=== PATIENT | female | born 1965 | race Caucasian/White ===

== ENCOUNTER 2017-09-21 06:50 | Day surgery (SDC) | payer MEDICAID ==
[2017-09-21] MEDS ORDERED: Propofol 200 MG/20 ML SDV ONE (07:25)
[2017-09-21] MEDS ORDERED: Midazolam 1 MG/ML 2 ML SDV ONE (07:25)
[2017-09-21] MEDS ORDERED: fentaNYL 100 MCG/2 ML SDV ONE (07:25)
[2017-09-21] MEDS ORDERED: Albuterol/Ipratropium 3.0-0.5 MG/3 ML Neb Soln NEB ONE (08:15)
[2017-09-21] MEDS ORDERED: Lactated Ringers 1,000 ML IV SCH (08:15)
[2017-09-21] MEDS ORDERED: Dextrose 5%-Lactated Ringers 1,000 ML IV SCH (08:45)
[2017-09-21 10:06] VITALS: BP 121/83
--- NOTE | 2017-09-21 15:36 | OR ---
DATE OF PROCEDURE: 09/21/2017 PREOPERATIVE DIAGNOSES: Upper abdominal discomfort manifested by nausea and fullness. POSTOPERATIVE DIAGNOSES: Upper abdominal discomfort manifested by nausea and fullness, a 3 cm hiatal hernia, gastritis, duodenitis, irregular duodenal mucosa. PROCEDURE: Esophagogastroduodenoscopy with antral and duodenal biopsies for CLOtest and for pathology to look for Helicobacter pylori, biopsy of irregular duodenal mucosa. SURGEON: Josiah Kwok MD. ANESTHESIA: IV anesthesia with monitored anesthesia care. INDICATION: This 52-year-old white female is referred for upper endoscopy. She complains of on and off nausea and upper abdominal fullness. She is just uncomfortable in her epigastrium. She has had a cholecystectomy in the past. I counseled her for upper endoscopy with possible biopsy including risks and alternatives, and she gave her informed consent to proceed. DESCRIPTION OF PROCEDURE: The patient was placed in the left lateral decubitus position. IV anesthesia was administered by the Anesthesia Service. Time-out was held. The flexible video Olympus upper endoscope was passed through her mouth down her esophagus, and into her stomach. The scope was easily passed through the pylorus, into the duodenum reaching its third portion. The scope was slowly withdrawn examining the mucosa throughout. There was some area of irregularity, that was smooth, but bulging a little. We did biopsy this area in the duodenum. Also, there was evidence of inflammation in the duodenal bulb. The scope was brought back through the pylorus into the antrum. There was also evidence of gastritis with erythematous streaking emanating from the pylorus. We obtained biopsies for CLOtest, and for pathology to look for Helicobacter pylori of both the antrum and duodenum. The scope was retroflexed. The proximal stomach was unremarkable except for a visualized hiatal hernia. The scope was straightened and brought up through about a 3 cm in length hiatal hernia. The GE junction appeared unremarkable. The scope was then brought up through the unremarkable appearing esophagus and was removed. She tolerated the procedure well. Josiah Kwok MD /[id number]
== END 2017-09-21 10:12 | disposition home or self-care (01) ==
LOC: JP.SDS 06:50
PROVIDERS: ATTEND Surgery
DX: K29.70 Gastritis, unspecified, without bleeding (principal); K29.80 Duodenitis without bleeding; K44.9 Diaphragmatic hernia without obstruction or gangrene; J45.909 Unspecified asthma, uncomplicated; K21.9 Gastro-esophageal reflux disease without esophagitis; Z88.6 Allergy status to analgesic agent; Z88.2 Allergy status to sulfonamides
CPT/HCPCS: 43239; 87081; J2250; J2704; J3010; J7120; J7620

== ENCOUNTER 2017-11-26 06:53 | Emergency (ER) | payer MEDICAID ==
[2017-11-26 07:06] VITALS: BP 145/86
[2017-11-26] MEDS ORDERED: Ondansetron 4 MG/2 ML SDV IVPUSH ONE (07:39)
[2017-11-26] MEDS ORDERED: Metoclopramide 10 MG/2 ML SDV IVPUSH ONE (07:40)
[2017-11-26] MEDS ORDERED: Sodium Chloride 0.9% 1,000 ML IV SCH ×2 (07:45→08:45)
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
[2017-11-26] MEDS ORDERED: Pantoprazole 40 MG Vial IVPUSH ONE (08:07)
[2017-11-26] MEDS ORDERED: Levalbuterol HCl 1.25 MG/3 ML Neb NEB ONE (09:59)
[2017-11-28 07:32] LABS: HBSAG SCREEN Negative (Negative); HEP A AB, IGM Negative (Negative); HEP B CORE AB, IGM Negative (Negative); HEP C VIRUS AB <0.1 s/co ratio (0.0-0.9)
== END 2017-11-26 10:31 | disposition home or self-care (01) ==
LOC: JP.ED 06:53
DX: K46.9 Unspecified abdominal hernia without obstruction or gangrene (principal); K21.0 Gastro-esophageal reflux disease with esophagitis; E86.0 Dehydration; R74.8 Abnormal levels of other serum enzymes; Z88.8 Allergy status to other drugs, medicaments and biological substances
CPT/HCPCS: 36415; 80053; 80074; 83690; 85025; 86140; 94640; 96361; 96374; 96375; 99284; C9113; J2405; J2765; J7030; J7612

== ENCOUNTER 2019-08-24 16:28 | Emergency (ER) | payer MEDICAID ==
[2019-08-24] MEDS ORDERED: Sodium Chloride 0.9% 10 ML Syringe FLUSH PRN (17:07)
[2019-08-24] MEDS ORDERED: Promethazine 25 MG Supp RECTAL PRN ×2 (17:08→22:03)
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
[2019-08-24] MEDS ORDERED: Sodium Chloride 0.9% 1,000 ML IV SCH (17:15)
[2019-08-24] MEDS ORDERED: Magnesium Oxide 400 MG Tab PO ONE (18:16)
[2019-08-24] MEDS ORDERED: Magnesium Sulfate/Water 2 GM in Premix Bag 1 BAG IV ONE (18:34)
[2019-08-24] MEDS ORDERED: Promethazine 12.5 MG in Sodium Chloride 0.9% 50 ML IV PRN (18:35)
[2019-08-24] MEDS ORDERED: fentaNYL 100 MCG/2 ML SDV IVPUSH ONE (20:03)
[2019-08-24] MEDS ORDERED: LORazepam 2 MG/ML SDV IVPUSH ONE (20:03)
[2019-08-24 20:05] VITALS: BP 146/81; PULSE 57
[2019-08-24] MEDS ORDERED: Sodium Chloride 0.9% 10 ML Syringe FLUSH ONE (20:21)
[2019-08-24] MEDS ORDERED: Iopamidol 612 MG/ML 100 ML Bottle IV SCH (20:30)
[2019-08-24] MEDS ORDERED: Sodium Chloride 0.9% 100 ML IV SCH (20:30)
--- NOTE | 2019-08-24 22:08 | CRLCT ---
INDICATION: Abdominal pain. Vomiting TECHNIQUE: CT abdomen and pelvis acquired with IV contrast. 100 mL of Isovue-300 administered. COMPARISON: None available FINDINGS: Lower chest: Minor right lower lobe subsegmental atelectasis. A small hiatal hernia. Liver: Mild intrahepatic periportal edema, nonspecific. Spleen: Unremarkable. Pancreas: Unremarkable. Pancreatic divisum is not excluded. Gallbladder and bile ducts: Cholecystectomy. Adrenal glands: Unremarkable. Kidneys: A mildly abnormal right renal axis. No hydronephrosis. GI tract: No mechanical bowel obstruction. Few nondilated fluid-filled pelvic small bowel segments are nonspecific. A normal appendix. Slight colonic wall prominence is likely related to underdistention. No significant pericolonic changes. At least 1 small distal descending colon diverticulum seen. Vascular structures: Normal aortic caliber. Minor early atherosclerotic changes. Asymmetrical prominence and opacification of the left parametrial and gonadal veins. Lymph nodes: Unremarkable. Miscellaneous: No significant free fluid or free air. Pelvic Organs: The uterine endometrium measures 7 mm. Small fluid in the vaginal fornix. A 1.2 cm left adnexal low-density structure. No discrete bladder abnormality seen. Bones: Unremarkable for age. IMPRESSION: No evidence of appendicitis, diverticulitis or mechanical bowel obstruction. Few nonspecific pelvic fluid filled small bowel segments. Slight colonic wall prominence is likely related to under distention. Correlate clinically to exclude mild enterocolitis. Mild intrahepatic periportal edema, nonspecific, and can be seen with fluid resuscitation. Correlate with hepatic enzymes. Asymmetrical prominence and opacification of the left parametrial and gonadal veins. Correlate for unilateral pelvic congestion syndrome. Mild prominence of the uterine endometrium for the patient`s age, and a 1.2 cm left adnexal low-density structure, which could be physiologic, if the patient is not postmenopausal. If the patient is postmenopausal, correlate with pelvic ultrasound. Dictated by Anthony Velez MD @ 08/24/2019 10:02:01 PM Please note that all CT scans at this facility use dose modulation, iterative reconstruction, and/or weight-based dosing when appropriate to reduce radiation dose to as low as reasonably achievable. Dictated by: Anthony Velez MD @ 08/24/2019 22:07:54 (Electronically Signed)
== END 2019-08-24 22:54 | disposition home or self-care (01) ==
LOC: JP.ED 16:28
DX: E86.0 Dehydration (principal); E83.42 Hypomagnesemia; E87.6 Hypokalemia; N28.9 Disorder of kidney and ureter, unspecified; K21.9 Gastro-esophageal reflux disease without esophagitis; J45.909 Unspecified asthma, uncomplicated; F32.9 Major depressive disorder, single episode, unspecified; F41.0 Panic disorder [episodic paroxysmal anxiety]; Z79.899 Other long term (current) drug therapy; Z88.2 Allergy status to sulfonamides; Z88.6 Allergy status to analgesic agent; Z91.09 Other allergy status, other than to drugs and biological substances; Z91.048 Other nonmedicinal substance allergy status
CPT/HCPCS: 36415; 74177; 80048; 80076; 80307; 81001; 83690; 83735; 84484; 93005; 96361; 96365; 96366; 96375; 99284; A9270; J2060; J2550; J3010; J3475; J7030; J7050; Q9967

== ENCOUNTER 2019-11-21 07:14 | Day surgery (SDC) | payer MEDICAID ==
[2019-11-21] MEDS ORDERED: Midazolam 1 MG/ML 2 ML SDV ONE (07:45)
[2019-11-21] MEDS ORDERED: Propofol 200 MG/20 ML SDV ONE (07:45)
[2019-11-21] MEDS ORDERED: fentaNYL 100 MCG/2 ML SDV ONE (07:45)
[2019-11-21] MEDS ORDERED: Sodium Chloride 0.9% 1,000 ML IV SCH (08:00)
[2019-11-21 11:15] VITALS: BP 121/79; PULSE 64
--- NOTE | 2019-11-21 12:10 | OR ---
DATE OF PROCEDURE: 11/21/2019 SURGEON: Baltazar Hagen MD PROCEDURES: 1. Esophagogastroduodenoscopy. 2. Colonoscopy. FINDINGS: 1. Gastric ulcer in antrum, not actively bleeding. 2. Transverse colon polyp, approximately 5 mm, completely removed using cold biopsy forceps. 3. Anal lesion, most likely consistent with thrombosed hemorrhoids. COMPLICATIONS: None. ANIMAL CARE SPECIALIST: None. RISKS: Risks, benefits, alternatives, and limitations including but not limited to infection, bleeding, and perforation were explained to the patient, who wished to proceed. We also discussed general surgical risks. PROCEDURE IN DETAIL: The patient was placed in left lateral decubitus position. EGD scope was introduced and advanced atraumatically to the second part of the duodenum. No evidence of duodenitis or ulceration were noted. The patient did have a gastric ulcer as described above. No evidence of other abnormalities. The patient did have a hiatal hernia, but it was difficult to determine size, approximately 4 to 6 cm. The remainder of the esophagus was normal. Digital rectal exam was performed next. The hemorrhoidal-type lesions were identified. Scope was introduced and advanced atraumatically to the ileocecal valve. A photo was taken of this. Scope was brought back into the transverse colon polyp, approximately 5 mm polyp was identified and completely removed using cold biopsy forceps. No abnormalities on retroflexion, except for prominent hemorrhoidal lesion, which was biopsied due to its concern for possible malignancy. Greater than 8 minutes was used to remove the scope. The patient tolerated the procedure well. Baltazar Hagen MD /[id number]
== END 2019-11-21 11:15 | disposition home or self-care (01) ==
LOC: JP.SDS 07:14
PROVIDERS: ATTEND Surgery
DX: D12.3 Benign neoplasm of transverse colon (principal); K62.89 Other specified diseases of anus and rectum; K25.9 Gastric ulcer, unspecified as acute or chronic, without hemorrhage or perforation; K44.9 Diaphragmatic hernia without obstruction or gangrene; J45.909 Unspecified asthma, uncomplicated; K64.9 Unspecified hemorrhoids; Z88.2 Allergy status to sulfonamides
CPT/HCPCS: 43239; 45380; 88305; J2250; J2704; J3010; J7030

== ENCOUNTER 2020-01-05 08:00 | Day surgery (SDC) | payer MEDICAID ==
[2020-01-05] MEDS ORDERED: fentaNYL 100 MCG/2 ML SDV ONE (09:08)
[2020-01-05] MEDS ORDERED: Midazolam 1 MG/ML 2 ML SDV ONE ×2 (09:08→10:57)
[2020-01-05] MEDS ORDERED: Propofol 200 MG/20 ML SDV ONE ×2 (09:08→11:08)
[2020-01-05] MEDS ORDERED: metroNIDAZOLE/Normal Saline 500 MG in Premix Bag 1 BAG IV ONE (09:30)
[2020-01-05] MEDS ORDERED: Sodium Chloride 0.9% 1,000 ML IV SCH (09:30)
[2020-01-05] MEDS ORDERED: ceFAZolin 2 GM in Premix Bag 1 BAG IV ONE (09:30)
[2020-01-05] MEDS ORDERED: Lidocaine 1% with EPINEPHrine 1:100,000 50 ML MDV ONE (09:35)
[2020-01-05] MEDS ORDERED: Bupivacaine 0.5% 50 ML MDV ONE (09:35)
[2020-01-05] MEDS ORDERED: Lidocaine 2% Jelly 30 ML Tube ONE (09:35)
[2020-01-05] MEDS ORDERED: Ketorolac 60 MG/2 ML SDV ONE (11:17)
[2020-01-05 12:25] VITALS: BP 122/85; PULSE 71
--- NOTE | 2020-01-05 14:30 | OR ---
DATE OF PROCEDURE: 01/05/2020 SURGEON: Baltazar Hagen MD PROCEDURE: Excision of internal and external hemorrhoids. COMPLICATIONS: None. ASSISTANT DESIGNER: None. ANESTHESIA: MAC/local. RISKS: Risks, benefits, alternatives, and limitations including but not limited to infection, bleeding, fistulas, chronic pain, and other risks not listed here were explained to the patient. PROCEDURE IN DETAIL: The patient was placed in a prone position. The internal and external hemorrhoid were evaluated and anesthetized with lidocaine and excised in a simi-type fashion. This was then closed with a running chromic suture. The patient tolerated the procedure well. Baltazar Hagen MD /[id number]
== END 2020-01-05 12:42 | disposition home or self-care (01) ==
LOC: JP.SDS 08:00
PROVIDERS: ATTEND Surgery
DX: K64.8 Other hemorrhoids (principal); K64.4 Residual hemorrhoidal skin tags; J45.40 Moderate persistent asthma, uncomplicated; K21.9 Gastro-esophageal reflux disease without esophagitis; Z98.890 Other specified postprocedural states; Z79.899 Other long term (current) drug therapy; Z88.2 Allergy status to sulfonamides; Z88.8 Allergy status to other drugs, medicaments and biological substances; Z91.018 Allergy to other foods
CPT/HCPCS: 46255; J0690; J1885; J2250; J2704; J3010; J3490; 88304

== ENCOUNTER 2020-04-23 05:50 | Day surgery (SDC) | payer MEDICAID ==
[~2020-04-23 05:50] MED LIST: Ropivacaine 28 ML, dexAMETHasone 8 MG, EPINEPHrine 0.4 MG, Sodium Chloride 0.9% 49.6 ML NERVRT SCH; Sodium Chloride 0.9% 1,000 ML IV SCH; ceFAZolin 2 GM in Premix Bag 1 BAG IV ONE; metroNIDAZOLE/Normal Saline 500 MG in Premix Bag 1 BAG IV ONE
[2020-04-23] MEDS ORDERED: Sodium Chloride 0.9% 1,000 ML IV SCH (06:30)
[2020-04-23] MEDS ORDERED: Bupivacaine 0.5% 50 ML MDV ONE (06:58)
[2020-04-23] MEDS ORDERED: Lidocaine 1% with EPINEPHrine 1:100,000 50 ML MDV ONE (06:58)
[2020-04-23] MEDS ORDERED: Ondansetron 4 MG/2 ML SDV IVPUSH PRN (07:08)
[2020-04-23] MEDS ORDERED: Ketorolac 30 MG/ML SDV IVPUSH PRN (07:08)
[2020-04-23] MEDS ORDERED: diphenhydrAMINE 50 MG/ML SDV IVPUSH PRN (07:08)
[2020-04-23] MEDS ORDERED: hydrOXYzine HCL 100 MG/2 ML SDV IM PRN (07:08)
[2020-04-23] MEDS ORDERED: Benzocaine/Cetylpyridinium/Menthol Lozenge MUCMEM PRN ×2 (07:08)
[2020-04-23] MEDS ORDERED: fentaNYL 100 MCG/2 ML SDV IVPUSH PRN (07:08)
[2020-04-23] MEDS ORDERED: Ondansetron 4 MG Tab.DIS PO PRN (07:08)
[2020-04-23] MEDS ORDERED: Bisacodyl 5 MG Tab PO PRN (07:08)
[2020-04-23] MEDS ORDERED: Midazolam 1 MG/ML 2 ML SDV ONE (07:16)
[2020-04-23] MEDS ORDERED: Neostigmine Methylsulfate 1 MG/ML 5 ML Syringe ONE (07:17)
[2020-04-23] MEDS ORDERED: Propofol 200 MG/20 ML SDV ONE (07:17)
[2020-04-23] MEDS ORDERED: Glycopyrrolate 0.2 MG/ML 5 ML MDV ONE (07:17)
[2020-04-23] MEDS ORDERED: Dexamethasone 4 MG/ML SDV ONE (07:17)
[2020-04-23] MEDS ORDERED: Rocuronium 50 MG/5 ML Vial ONE (07:17)
[2020-04-23] MEDS ORDERED: Succinylcholine 200 MG/10 ML MDV ONE (07:17)
[2020-04-23] MEDS ORDERED: fentaNYL 250 MCG/5 ML SDV ONE (07:17)
[2020-04-23] MEDS ORDERED: ceFAZolin 2 GM in Premix Bag 1 BAG IV ONE (07:30)
[2020-04-23] MEDS ORDERED: metroNIDAZOLE/Normal Saline 500 MG in Premix Bag 1 BAG IV ONE (07:30)
[2020-04-23] MEDS ORDERED: Ropivacaine 28 ML, dexAMETHasone 8 MG, EPINEPHrine 0.4 MG, Sodium Chloride 0.9% 49.6 ML NERVRT SCH ×8 (08:30→10:15)
[2020-04-23] MEDS: Acetaminophen/HYDROcodone 325-10 MG Tab PO PRN ×2 (09:51→14:35)
[2020-04-23 14:30] VITALS: BP 136/93; PULSE 80
[2020-04-23] MEDS ORDERED: LORazepam 1 MG Tab PO PRN (15:36)
[2020-04-23] MEDS ORDERED: Citalopram 20 MG Tab PO SCH (16:00)
[2020-04-23] MEDS ORDERED: ceFAZolin 2 GM in Premix Bag 1 BAG IV SCH (16:00)
--- NOTE | 2020-04-24 09:16 | PN ---
DATE OF SERVICE: 04/23/2020 The patient underwent uneventful laparoscopic Kiki. She was scheduled to be discharged on postop day 0. No specific concerns. Please see discharge summary for further details. Baltazar Hagen MD /[id number]
--- NOTE | 2020-04-26 07:57 | OR ---
DATE OF PROCEDURE: 04/23/2020 SURGEON: Baltazar Hagen MD PROCEDURES: 1. Laparoscopic Kiki fundoplication with hiatal hernia repair and mesh placement (36003). 2. Esophagogastroduodenoscopy. COMPLICATIONS: None. MUSIC INDU[employer]Y INTERNSHIP: None. ANESTHETIC: General. RISKS: Risks, benefits, alternatives, and limitations including, but not limited to infection, bleeding, injury to abdominal structures, leaks, esophageal injury, injury to bowel or bladder, possibility of open surgery, dysphagia, chronic pain, chronic dysphagia, and other risks not listed here were explained to the patient who wished to proceed. PROCEDURE IN DETAIL: The patient was placed in supine position. At 15 cm and 5 cm to the left of the xiphoid process, a transverse incision was made. A Veress needle was used to enter the abdomen without abnormality. A drop test was performed without abnormality. The abdomen was subsequently insufflated. Three additional 5 mm ports were entered under direct visualization. The liver and stomach were readily identified. The patient was noted to have a atof-kr-jbtixmsq-sized hiatal hernia. A liver retractor was then placed. Using the classic technique starting at the right lan, the phrenoesophageal ligament was entered in the avascular plane. This dissection continued posteriorly and to the left lan, all using blunt dissection. Energy sources were not used in any way. The right hepatic artery was noted in anatomical variation location. This would be preserved along with the vagus nerves which would be identified, but not interacted with in any way. Once a blunt dissection was completed, a Naomi drain was used to pass between the stomach/esophagus and was secured. The lesser curvature of the stomach was then addressed next. This was addressed in avascular plane using Harmonic scalpel. This was carried all the way up to the splenoesophageal and splenogastric ligament areas. This also was continued with blunt dissection except for Harmonic scalpel was used to address the splenic short gastrics. The defect created behind the stomach was appropriate. A 60 bougie was placed and a shoeshine maneuver was performed. Prior to this, the hernia would be repaired with 3 interrupted sutures. BIO-A mesh would then also be placed over the suture repair. The target of the suture repair was approximation without strangulation of the esophagus. The esophagus was measured and was noted to be intraabdominal of 5 cm. The wrap was then commenced. The shoeshine maneuver was again repeated. This was then sutured into the esophagus/ stomach in 3 locations. An EGD scope was introduced. No abnormalities noted. The wrap was noted to be intact. No other abnormalities were noted during the EGD. The air was removed. The wounds were closed with 3-0 Vicryl and 4-0 Vicryl in interrupted running fashion. Dermabond was applied. The patient tolerated the procedure well. Baltazar Hagen MD /[id number]
--- NOTE | 2020-04-26 07:57 | OR ---
DATE OF PROCEDURE: 04/23/2020 SURGEON: Baltazar Hagen MD PROCEDURE: 1. Bilateral transversus abdominis plane blocks. 2. Bilateral rectus sheath blocks. COMPLICATION: None. LIFE CARE PLANNER: None. RISKS: Risks, benefits, alternatives, and limitations including, but not limited to infection, bleeding, injury to abdominal structures were explained to the patient who wished to proceed. PROCEDURE IN DETAIL: The patient was placed in the supine position. The left transversus plane was identified first. Essentially, the fluid will be broken up into 4 separate aliquots for a total of 80% of the allotted fluid. Using the 13 megahertz ultrasound probe, it was identified and the solution was injected. This was then repeated for the left and right rectus sheaths and right transversus planes. The patient tolerated the procedure well. Baltazar Hagen MD /[id number]
== END 2020-04-23 17:31 | disposition home or self-care (01) ==
LOC: JP.SDS 05:50 → JP.MS 07:08 → UNDOADMOB 07:08 → JP.MS 07:10 → JP.SDS 17:31 → UNDODISOB 17:31
PROVIDERS: ATTEND Surgery
DX: K44.9 Diaphragmatic hernia without obstruction or gangrene (principal); J45.909 Unspecified asthma, uncomplicated; K21.9 Gastro-esophageal reflux disease without esophagitis; N18.9 Chronic kidney disease, unspecified; Z79.899 Other long term (current) drug therapy; Z88.2 Allergy status to sulfonamides; Z88.8 Allergy status to other drugs, medicaments and biological substances; Z91.02 Food additives allergy status
CPT/HCPCS: 36415; 86850; 86900; 86901; 86920; 86922; A9270-GY; C1713; C1776; J0171; J0330; J0690; J1100; J1200; J1885; J2250; J2405; J2704; J2710; J2795; J3010; J3490; J7030

== ENCOUNTER 2020-04-27 12:16 | Emergency (ER) | payer MEDICAID ==
[2020-04-27 12:38] VITALS: BP 120/88; PULSE 102
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
--- NOTE | 2020-04-27 13:40 | CR ---
CHEST: Portable to 05/15/2020 at 1256 CLINICAL HISTORY:Postop pain COMPARISON:None FINDINGS: Patient has small bibasal pleural effusions left greater than right. There is mild prominence of the interstitial markings. Heart size and pulmonary vascular normal. IMPRESSION: Small bibasal pleural effusions left greater than right Diffuse interstitial prominence may represent some interstitial edema or possibly pneumonitis. Abdomen 1V Upright CLINICAL HISTORY: Postop pain FINDINGS: No free air is identified. There are some surgical clips in the epigastric region. Patient has had previous cholecystectomy also seen on a CT from 2019. No free air is identified. Small chest gas pattern is nonspecific. IMPRESSION: Recent epigastric surgery Nonacute intestinal gas pattern.
== END 2020-04-27 14:30 | disposition home or self-care (01) ==
LOC: JP.ED 12:16
DX: G89.18 Other acute postprocedural pain (principal); R10.9 Unspecified abdominal pain; J45.909 Unspecified asthma, uncomplicated; K21.9 Gastro-esophageal reflux disease without esophagitis; Z79.899 Other long term (current) drug therapy; Z88.2 Allergy status to sulfonamides; Z91.048 Other nonmedicinal substance allergy status; Z88.6 Allergy status to analgesic agent; Z91.018 Allergy to other foods
CPT/HCPCS: 71045; 71045-26; 74018; 74018-26; 99284-25

== ENCOUNTER 2020-05-06 07:49 | Day surgery (SDC) | payer MEDICAID ==
[2020-05-06] MEDS ORDERED: fentaNYL 100 MCG/2 ML SDV ONE (08:05)
[2020-05-06] MEDS ORDERED: Midazolam 1 MG/ML 2 ML SDV ONE (08:05)
[2020-05-06] MEDS ORDERED: Propofol 200 MG/20 ML SDV ONE (08:06)
[2020-05-06] MEDS ORDERED: Sodium Chloride 0.9% 1,000 ML IV SCH (08:30)
--- NOTE | 2020-05-06 10:26 | OR ---
DATE OF PROCEDURE: 05/06/2020 SURGEON: Baltazar Hagen MD PROCEDURE: Esophagogastroduodenoscopy. PREOPERATIVE DIAGNOSIS: Epigastric pain. POSTOPERATIVE DIAGNOSIS: Epigastric pain. FINDINGS: Duodenal ulcer x2, none bleeding. COMPLICATIONS: None. OVEREDGER: None. ANESTHETIC: MAC. RISKS: Risks, benefits, alternatives, and limitations including, but not limited to infection, bleeding, and perforation were explained to the patient who wished to proceed. PROCEDURE IN DETAIL: The patient was placed in left lateral decubitus position. An EGD scope was introduced and advanced atraumatically to the second part of the duodenum. Within the duodenum, approximately 3 cm from the bulb on the curve, the patient had 2 duodenal ulcers, one was approximately 5 mm, one was approximately 1 cm. They were apart also. They were not actively bleeding. Within the stomach itself, there was some gastritis. The wrap itself appeared to be intact. There was no evidence of narrowing or stricturing. The GE junction also appeared normal. The esophagus was normal. The patient tolerated the procedure well. Of note, the patient was started on proton pump inhibitor. Baltazar Hagen MD /[id number]
[2020-05-06 10:34] VITALS: BP 115/74; PULSE 88
== END 2020-05-06 10:57 | disposition home or self-care (01) ==
LOC: JP.SDS 07:49
PROVIDERS: ATTEND Surgery
DX: K26.9 Duodenal ulcer, unspecified as acute or chronic, without hemorrhage or perforation (principal); K29.70 Gastritis, unspecified, without bleeding; K21.9 Gastro-esophageal reflux disease without esophagitis; J45.909 Unspecified asthma, uncomplicated; Z88.2 Allergy status to sulfonamides; Z91.048 Other nonmedicinal substance allergy status; Z88.8 Allergy status to other drugs, medicaments and biological substances; Z91.02 Food additives allergy status
CPT/HCPCS: J2250; J2704; J3010; J7030

== ENCOUNTER 2020-05-22 15:29 | Observation (INO) | payer MEDICAID ==
[2020-05-22] MEDS ORDERED: Sodium Chloride 0.9% 10 ML Syringe FLUSH PRN (16:05)
[2020-05-22] MEDS ORDERED: fentaNYL 100 MCG/2 ML SDV IVPUSH ONE (16:06)
[2020-05-22] MEDS ORDERED: Ondansetron 4 MG/2 ML SDV IVPUSH ONE (16:06)
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
[2020-05-22] MEDS ORDERED: Sodium Chloride 0.9% 10 ML Syringe FLUSH ONE (16:10)
[2020-05-22] MEDS ORDERED: Lactated Ringers 1,000 ML IV SCH (16:15)
[2020-05-22] MEDS ORDERED: Iopamidol 612 MG/ML 100 ML Bottle IV SCH (16:15)
[2020-05-22] MEDS ORDERED: Sodium Chloride 0.9% 100 ML IV SCH (16:15)
[2020-05-22] MEDS ORDERED: LORazepam 2 MG/ML SDV IVPUSH ONE (16:50)
--- NOTE | 2020-05-22 17:29 | CRLCT ---
INDICATION: Epigastric pain. COMPARISON: 08/24/2019. TECHNIQUE: CT of the abdomen pelvis with IV contrast. 100 cc Isovue-300. FINDINGS: Linear bibasilar subsegmental atelectasis. Cholecystectomy. The liver, spleen, pancreas and adrenal glands are unremarkable. No obstructing renal calculus or hydronephrosis. Abdominal aorta is normal in caliber. Uterus is present. Bladder is nondistended. No free fluid or free air. Question of mild colonic wall thickening of the transverse colon versus underdistention. No evidence of bowel obstruction. No enlarged lymph nodes in the abdomen or pelvis. Postsurgical changes at the GE junction, likely hiatal hernia repair. Stomach is distended. Bones are unremarkable for age. IMPRESSION: 1. Possible colonic wall thickening versus underdistention of the transverse colon, consider colitis. 2. Distended stomach of uncertain etiology. Consider gastric outlet obstruction. Please note that all CT scans at this facility use dose modulation, iterative reconstruction, and/or weight-based dosing when appropriate to reduce radiation dose to as low as reasonably achievable. Dictated by Abdullahi Pratt MD @ May 22 2020 5:17PM Signed by Dr. Abdullahi Pratt @ May 22 2020 5:28PM
[2020-05-22] MEDS ORDERED: Pantoprazole 40 MG Vial IVPUSH ONE (17:38)
[2020-05-22] MEDS ORDERED: Prochlorperazine 10 MG/2 ML SDV IVPUSH PRN (17:59)
[2020-05-22] MEDS ORDERED: HYDROmorphone 0.5 MG/0.5 ML Syringe IVPUSH PRN (17:59)
[2020-05-22] MEDS ORDERED: Levalbuterol HCl 1.25 MG/3 ML Neb INH PRN (18:00)
[2020-05-22] MEDS ORDERED: Promethazine 25 MG Supp RECTAL PRN (18:00)
[2020-05-22] MEDS ORDERED: Levalbuterol Tartrate HFA 15 GM Inhaler INH PRN (18:00)
[2020-05-22] MEDS ORDERED: LORazepam 1 MG Tab PO PRN (18:00)
[2020-05-22] MEDS ORDERED: Pantoprazole 40 MG Vial IVPUSH SCH (18:00)
[2020-05-22] MEDS: Lactated Ringers 1,000 ML IV SCH (20:06)
[2020-05-22] MEDS: Montelukast 10 MG Tab PO SCH ×2 (21:09→21:10)
[2020-05-22] MEDS: Sucralfate 1 GM Tab PO SCH ×2 (21:09→21:10)
[2020-05-23] MEDS ORDERED: Acetaminophen 325 MG Tab PO PRN (02:36)
[2020-05-23] MEDS: Sucralfate 1 GM Tab PO SCH ×5 (05:56→20:46)
[2020-05-23] MEDS ORDERED: Levalbuterol HCl 1.25 MG/3 ML Neb INH PRN (07:17)
[2020-05-23] MEDS ORDERED: Midazolam 1 MG/ML 2 ML SDV ONE (08:01)
[2020-05-23] MEDS ORDERED: fentaNYL 100 MCG/2 ML SDV ONE (08:01)
[2020-05-23] MEDS ORDERED: Propofol 200 MG/20 ML SDV ONE (08:01)
[2020-05-23] MEDS ORDERED: Lactated Ringers 1,000 ML ONE (08:13)
[2020-05-23] MEDS ORDERED: Loratadine 10 MG Tab PO SCH (09:00)
[2020-05-23] MEDS: Docusate Sodium 100 MG Cap PO SCH (09:24)
[2020-05-23] MEDS: Cholecalciferol (Vitamin D3) 25 MCG Tab PO SCH (09:24)
[2020-05-23] MEDS: Citalopram 20 MG Tab PO SCH (09:25)
[2020-05-23] MEDS ORDERED: Acetaminophen 160 MG Tab,Disintegrating PO PRN (10:15)
[2020-05-23] MEDS ORDERED: Pantoprazole 40 MG Delayed-Release Granules 1 Packet PO ONE (10:30)
[2020-05-23] MEDS: Lactated Ringers 1,000 ML IV SCH (11:00)
[2020-05-23] MEDS ORDERED: Pantoprazole 40 MG Vial IVPUSH SCH (18:00)
[2020-05-23] MEDS ORDERED: Montelukast 5 MG Tab.Chew PO SCH (21:00)
[2020-05-23] MEDS: Pantoprazole 40 MG Delayed-Release Granules 1 Packet PO SCH (22:34)
[2020-05-24] MEDS: Lactated Ringers 1,000 ML IV SCH (03:11)
[2020-05-24] MEDS: Sucralfate 1 GM Tab PO SCH ×2 (07:40→11:11)
[2020-05-24] MEDS: Pantoprazole 40 MG Delayed-Release Granules 1 Packet PO SCH (07:41)
[2020-05-24] MEDS ORDERED: Loratadine 10 MG Tab.DIS PO SCH (09:00)
[2020-05-24] MEDS ORDERED: ASCORBIC ACID 500 MG PO SCH (09:00)
[2020-05-24] MEDS: Citalopram 20 MG Tab PO SCH (09:41)
[2020-05-24] MEDS: Cholecalciferol (Vitamin D3) 25 MCG Tab PO SCH (09:42)
[2020-05-24] MEDS: Docusate Sodium 100 MG Cap PO SCH (09:48)
--- NOTE | 2020-05-24 10:49 | OR ---
DATE OF PROCEDURE: 05/23/2020 SURGEON: Baltazar Hagen MD PROCEDURE: Esophagogastroduodenoscopy. FINDINGS: 1. Significant improvement in duodenal ulcers (no physical ulcer remaining). 2. CLOtest for evaluation of H pylori. COMPLICATIONS: None. CONFERENCE PLANNER: None. ANESTHESIA: MAC. RISKS: Risks, benefits, alternatives, and limitations including, but not limited to infection, bleeding, and perforation were explained to the patient who wished to proceed. PREOPERATIVE DIAGNOSIS: Epigastric pain/history of duodenal ulcers. POSTOPERATIVE DIAGNOSIS: Epigastric pain/history of duodenal ulcers. PROCEDURE IN DETAIL: The patient was placed in left lateral decubitus position. The EGD scope was introduced and advanced atraumatically to the second part of the duodenum. Within the duodenum, the previous ulcers have near completely resolved. There is some mild inflammation in this area, but with respect to close mucosal covering, this has completely healed. There is no evidence of gastric outlet obstruction as the scope can easily be passed through the area of inflammation on CT without any difficulty. The Kiki appeared appropriate size. There was no evidence of narrowing or stricturing. There was very mild gastritis noted. Cold biopsy forceps were used to sample tissue for CLOtest evaluation. The GE junction was normal. Esophagus was normal. There was some retained liquid/solid food in the stomach suggesting the patient is still having some partially functional obstruction with respect to the small bowel, not at the fundoplication location. The patient tolerated the procedure well. Baltazar Hagen MD /[id number]
[2020-05-24 11:00] VITALS: BP 127/78; PULSE 71
--- NOTE | 2020-05-24 14:10 | DISCH ---
DISCHARGE DIAGNOSIS: Inflammation of the duodenum creating a functional gastric outlet obstruction secondary to duodenal ulcer. SUMMARY OF HOSPITAL COURSE: Pleasant 55-year-old female who underwent a Kiki fundoplication a few weeks back. However, she did not have any symptoms related to the Kiki. Rather, she had a duodenal ulcer, which was known. She was not taking her proton pump inhibitor. She was started on IV PPI and significantly improved. Prior to discharge, she was tolerating diet. She has no nausea, vomiting. Tolerating her medication without difficulty. FOLLOWUP: With Surgery in 7 to 14 days. ACTIVITY: As tolerated. DIET: As tolerated. Continue to advance diet. DISCHARGE MEDICATIONS: Please see MAR, but include PPI. /[id number]
--- NOTE | 2020-05-24 14:46 | PN ---
DATE OF SERVICE: 05/24/2020 SUBJECTIVE: The patient continues to do well. Pain is well controlled. No nausea, vomiting, shortness of breath, or chest pain. OBJECTIVE: VITAL SIGNS: Stable. ABDOMEN: Nontender, nondistended. ASSESSMENT: Duodenal ulcer. PLAN: The patient is doing quite well, is tolerating the new proton pump inhibitor, tolerating the diet. We should be evaluating for discharge. Baltazar Hagen MD /[id number]
== END 2020-05-24 12:06 | disposition home or self-care (01) ==
LOC: JP.ED 15:29 → JP.MS 17:56
PROVIDERS: ADMIT Surgery; ATTEND Surgery
DX: K29.70 Gastritis, unspecified, without bleeding (principal); K29.80 Duodenitis without bleeding; K21.9 Gastro-esophageal reflux disease without esophagitis; J45.909 Unspecified asthma, uncomplicated; Z20.822 Contact with and (suspected) exposure to COVID-19; Z88.2 Allergy status to sulfonamides; Z88.8 Allergy status to other drugs, medicaments and biological substances; Z91.018 Allergy to other foods; Z91.09 Other allergy status, other than to drugs and biological substances; Z87.442 Personal history of urinary calculi; Z86.010 Personal history of colon polyps; Z87.19 Personal history of other diseases of the digestive system; Z79.899 Other long term (current) drug therapy; Z98.890 Other specified postprocedural states
CPT/HCPCS: 36415; 43239; 74177; 80048; 80053; 81001; 83605; 83690; 84484; 85025; 85027; 87081; 87635; 96374; 96375; 96376; 99284; 99285; A9270; C9113; G0378; J0780; J2060; J2250; J2405; J2704; J3010; J7120; Q9967; U0002

== ENCOUNTER 2020-05-31 21:55 | Emergency (ER) | payer MEDICAID ==
[2020-05-31] MEDS ORDERED: Ondansetron 4 MG/2 ML SDV IVPUSH ONE (22:38)
[2020-05-31] MEDS ORDERED: LORazepam 2 MG/ML SDV IVPUSH ONE (22:38)
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
[2020-05-31] MEDS ORDERED: Sodium Chloride 0.9% 1,000 ML IV SCH (22:45)
[2020-05-31] MEDS ORDERED: HYDROmorphone 0.5 MG/0.5 ML Syringe IVPUSH ONE (22:47)
[2020-06-01 00:22] VITALS: BP 127/87; PULSE 89
== END 2020-06-01 00:46 | disposition home or self-care (01) ==
LOC: JP.ED 21:55
DX: R10.10 Upper abdominal pain, unspecified (principal); J45.909 Unspecified asthma, uncomplicated; R11.2 Nausea with vomiting, unspecified; Z88.6 Allergy status to analgesic agent; Z91.048 Other nonmedicinal substance allergy status; Z91.018 Allergy to other foods; Z88.2 Allergy status to sulfonamides; Z79.899 Other long term (current) drug therapy
CPT/HCPCS: 36415; 80053; 83690; 85025; 96374; 96375; 99283; 99284; J1170; J2060; J2405; J7030

== ENCOUNTER 2020-06-04 19:58 | Inpatient (IN) | payer MEDICAID ==
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
[2020-06-04] MEDS ORDERED: LORazepam 2 MG/ML SDV IVPUSH ONE (20:21)
[2020-06-04] MEDS ORDERED: Ondansetron 4 MG/2 ML SDV IVPUSH ONE (20:21)
[2020-06-04] MEDS ORDERED: Sodium Chloride 0.9% 10 ML Syringe FLUSH PRN (20:21)
[2020-06-04] MEDS ORDERED: Sodium Chloride 0.9% 250 ML IV SCH (20:30)
[2020-06-04] MEDS ORDERED: Sodium Chloride 0.9% 10 ML Syringe FLUSH ONE (20:56)
[2020-06-04] MEDS ORDERED: Iopamidol 612 MG/ML 100 ML Bottle IV SCH (21:00)
[2020-06-05] MEDS ORDERED: Ondansetron 4 MG/2 ML SDV IVPUSH ONE (01:34)
[2020-06-05] MEDS ORDERED: Ondansetron 4 MG/2 ML SDV ONE (01:35)
[2020-06-05] MEDS ORDERED: Sodium Chloride 0.9% 1,000 ML IV SCH (01:45)
[2020-06-05] MEDS ORDERED: Ketorolac 30 MG/ML SDV IVPUSH PRN (02:15)
[2020-06-05] MEDS ORDERED: Promethazine 12.5 MG in Sodium Chloride 0.9% 50 ML IV PRN (02:15)
[2020-06-05] MEDS ORDERED: Lidocaine 2% Jelly 10 ML Urojet ONE (02:17)
[2020-06-05] MEDS ORDERED: Acetaminophen 650 MG Supp RECTAL PRN (02:26)
[2020-06-05] MEDS ORDERED: Morphine 2 MG/ML SYRINGE IVPUSH PRN (02:26)
[2020-06-05] MEDS ORDERED: D5 1/2 NS w/ 20 mEq/L KCl 1,000 ML IV SCH ×2 (02:30→10:45)
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
[2020-06-05] MEDS ORDERED: Lidocaine 2% Jelly 10 ML Urojet MUCMEM ONE (02:52)
[2020-06-05] MEDS: Pantoprazole 40 MG Vial IV SCH ×2 (02:59→15:59)
[2020-06-05] MEDS: Levalbuterol HCl 0.63 MG/3 ML Neb NEB SCH ×6 (03:52→22:38)
[2020-06-05 05:09] LABS: HEMOGLOBIN A1C 5.8 % (4.5-6.2)
[2020-06-05] MEDS ORDERED: Loratadine 10 MG Tab PO SCH (09:00)
[2020-06-05] MEDS ORDERED: Benzocaine/Cetylpyridinium/Menthol Lozenge MUCMEM PRN (10:38)
--- NOTE | 2020-06-05 10:39 | PCM.PN ---
- General Info Date of Service: 06/05/20 Subjective Update: No acute events since admission. No significant abdominal pain or nausea at this time. NG tube continues to some yellowish-green fluid. Patient is asking for an EGD and dilation so she can go home. She is asking for a second opinion regarding management of her ulcer disease and reflux. She is frustrated with the duration of symptoms and what she perceives as the lack of improvement or possibly even worsening of her condition. Functional Status: Reports: Pain Controlled. Denies: Tolerating Diet - Review of Systems General: Denies: Fever - Patient Data Vitals - Most Recent: Last Vital Signs Temp 36.3 C 06/05/20 07:00 Pulse 98 06/05/20 07:00 Resp 18 06/05/20 07:00 BP 117/69 06/05/20 07:00 Pulse Ox 97 06/05/20 07:28 Weight - Most Recent: 54.431 kg I&O - Last 24 Hours: Intake & Output 06/04/20 06/05/20 06/05/20 22:59 06:59 14:59 Intake Total 267 Output Total 600 Balance -333 Lab Results Last 24 Hours: Laboratory Results - last 24 hr 06/04/20 06/04/20 06/04/20 Range/Units 20:40 20:40 21:09 WBC 12.1 H (4.5-11.0) K/uL RBC 4.58 (3.30-5.50) M/uL Hgb 14.4 (12.0-15.0) g/dL Hct 40.6 (36.0-48.0) % MCV 89 (80-98) fL MCH 31 (27-31) pg MCHC 36 (32-36) % Plt Count 393 (150-400) K/uL Neut % (Auto) 88 H (36-66) % Lymph % (Auto) 8 L (24-44) % [place] % (Auto) 4 (2-6) % Eos % (Auto) 0 L (2-4) % Baso % (Auto) 0 (0-1) % Sodium 140 (140-148) mmol/L Potassium 3.2 L (3.6-5.2) mmol/L Chloride 103 (100-108) mmol/L Carbon Dioxide 18 L (21-32) mmol/L Anion Gap 22.2 H (5.0-14.0) mmol/L BUN 14 (7-18) mg/dL Creatinine 1.2 H (0.6-1.0) mg/dL Est Cr Clr Drug Dosing 40.91 mL/min Estimated GFR (MDRD) 47 L (>60) Glucose 203 H (74-106) mg/dL Hemoglobin A1c (4.5-6.2) % Lactic Acid (0.4-2.0) mmol/L Calcium 9.3 (8.5-10.1) mg/dL Total Bilirubin 1.5 H (0.2-1.0) mg/dL AST 17 (15-37) U/L ALT 22 (12-78) U/L Alkaline Phosphatase 91 (46-116) U/L C-Reactive Protein (0.0-0.3) mg/dL Total Protein 6.8 (6.4-8.2) g/dL Albumin 3.9 (3.4-5.0) g/dL Globulin 2.9 (2.3-3.5) g/dL Albumin/Globulin Ratio 1.3 (1.2-2.2) Lipase 78 (73-393) U/L Ketones Negative (NEGATIVE) 06/05/20 06/05/20 06/05/20 Range/Units 04:30 04:35 04:35 WBC 9.7 (4.5-11.0) K/uL RBC 4.47 (3.30-5.50) M/uL Hgb 14.0 (12.0-15.0) g/dL Hct 40.7 (36.0-48.0) % MCV 91 (80-98) fL MCH 31 (27-31) pg MCHC 34 (32-36) % Plt Count 335 (150-400) K/uL Neut % (Auto) 81 H (36-66) % Lymph % (Auto) 13 L (24-44) % [place] % (Auto) 6 (2-6) % Eos % (Auto) 0 L (2-4) % Baso % (Auto) 0 (0-1) % Sodium 141 (140-148) mmol/L Potassium 3.0 L (3.6-5.2) mmol/L Chloride 106 (100-108) mmol/L Carbon Dioxide 20 L (21-32) mmol/L Anion Gap 18.0 H (5.0-14.0) mmol/L BUN 10 (7-18) mg/dL Creatinine 1.0 (0.6-1.0) mg/dL Est Cr Clr Drug Dosing 49.09 mL/min Estimated GFR (MDRD) 58 L (>60) Glucose 148 H (74-106) mg/dL Hemoglobin A1c (4.5-6.2) % Lactic Acid 1.2 (0.4-2.0) mmol/L Calcium 8.7 (8.5-10.1) mg/dL Total Bilirubin 1.5 H (0.2-1.0) mg/dL AST 13 L (15-37) U/L ALT 21 (12-78) U/L Alkaline Phosphatase 83 (46-116) U/L C-Reactive Protein < 0.05 (0.0-0.3) mg/dL Total Protein 6.4 (6.4-8.2) g/dL Albumin 3.6 (3.4-5.0) g/dL Globulin 2.8 (2.3-3.5) g/dL Albumin/Globulin Ratio 1.3 (1.2-2.2) Lipase (73-393) U/L Ketones (NEGATIVE) 06/05/20 Range/Units 04:35 WBC (4.5-11.0) K/uL RBC (3.30-5.50) M/uL Hgb (12.0-15.0) g/dL Hct (36.0-48.0) % MCV (80-98) fL MCH (27-31) pg MCHC (32-36) % Plt Count (150-400) K/uL Neut % (Auto) (36-66) % Lymph % (Auto) (24-44) % [place] % (Auto) (2-6) % Eos % (Auto) (2-4) % Baso % (Auto) (0-1) % Sodium (140-148) mmol/L Potassium (3.6-5.2) mmol/L Chloride (100-108) mmol/L Carbon Dioxide (21-32) mmol/L Anion Gap (5.0-14.0) mmol/L BUN (7-18) mg/dL Creatinine (0.6-1.0) mg/dL Est Cr Clr Drug Dosing mL/min Estimated GFR (MDRD) (>60) Glucose (74-106) mg/dL Hemoglobin A1c 5.8 (4.5-6.2) % Lactic Acid (0.4-2.0) mmol/L Calcium (8.5-10.1) mg/dL Total Bilirubin (0.2-1.0) mg/dL AST (15-37) U/L ALT (12-78) U/L Alkaline Phosphatase (46-116) U/L C-Reactive Protein (0.0-0.3) mg/dL Total Protein (6.4-8.2) g/dL Albumin (3.4-5.0) g/dL Globulin (2.3-3.5) g/dL Albumin/Globulin Ratio (1.2-2.2) Lipase (73-393) U/L Ketones (NEGATIVE) Med Orders - Current: Current Medications Acetaminophen (Acetaminophen 650 Mg Supp) 650 mg RECTAL Q6H PRN PRN Reason: pain Promethazine HCl 12.5 mg/ (Sodium Chloride) 50.5 mls @ 200 mls/hr IV Q6H PRN PRN Reason: Nausea/Vomiting Last Admin: 06/05/20 03:58 Dose: 200 mls/hr Documented by: Ketorolac Tromethamine (Ketorolac 30 Mg/Ml Sdv) 30 mg IVPUSH Q6H PRN PRN Reason: Pain (moderate 4-6) Last Admin: 06/05/20 10:26 Dose: 30 mg Documented by: Levalbuterol HCl (Levalbuterol Hcl 0.63 Mg/3 Ml Neb) 0.63 mg NEB Q4HWA [facility] Last Admin: 06/05/20 07:17 Dose: 0.63 mg Documented by: Loratadine (Loratadine 10 Mg Tab) 10 mg PO DAILY [facility] Last Admin: 06/05/20 09:20 Dose: Not Given Documented by: Montelukast Sodium (Montelukast 10 Mg Tab) 10 mg PO BEDTIME [facility] Morphine Sulfate (Morphine 2 Mg/Ml Syringe) 2 mg IVPUSH Q2H PRN PRN Reason: Pain (severe 7-10) Ondansetron HCl (Ondansetron 4 Mg/2 Ml Sdv) 4 mg IV Q4H PRN PRN Reason: Nausea/Vomiting Pantoprazole Sodium (Pantoprazole 40 Mg Vial) 40 mg IV Q12H [facility] Last Admin: 06/05/20 02:59 Dose: 40 mg Documented by: Sodium Chloride (Sodium Chloride 0.9% 10 Ml Syringe) 10 ml FLUSH ASDIRECTED PRN PRN Reason: Keep Vein Open Last Admin: 06/04/20 20:52 Dose: 10 ml Documented by: Discontinued Medications Sodium Chloride (Normal Saline) 250 mls @ 250 mls/hr IV ASDIRECTED [facility] Last Admin: 06/04/20 21:00 Dose: 250 mls/hr Documented by: Sodium Chloride (Normal Saline) 70 mls @ 3.5 mls/sec IV ASDIRECTED [facility] Last Admin: 06/04/20 21:50 Dose: 3 mls/sec Documented by: Sodium Chloride (Normal Saline) 1,000 mls @ 150 mls/hr IV ASDIRECTED [facility] Last Admin: 06/05/20 01:39 Dose: 150 mls/hr Documented by: Potassium Chloride/Dextrose/Sod Cl (D5 1/2 Ns W/ 20 Meq/L Kcl) 1,000 mls @ 125 mls/hr IV ASDIRECTED [facility] Last Admin: 06/05/20 04:30 Dose: 125 mls/hr Documented by: Iopamidol (Iopamidol 612 Mg/Ml 100 Ml Bottle) 72 ml IV . DIRECTED [facility] Last Admin: 06/04/20 21:49 Dose: 72 ml Documented by: Lidocaine HCl (Lidocaine 2% Jelly 10 Ml Urojet) Confirm Administered Dose 10 ml .ROUTE .STK-MED ONE Stop: 06/05/20 02:18 Last Admin: 06/05/20 02:51 Dose: Not Given Documented by: Lidocaine HCl (Lidocaine 2% Jelly 10 Ml Urojet) 10 ml MUCMEM ONETIME ONE Stop: 06/05/20 02:53 Last Admin: 06/05/20 02:53 Dose: 10 ml Documented by: Lorazepam (Lorazepam 2 Mg/Ml Sdv) 0.5 mg IVPUSH ONETIME ONE Stop: 06/04/20 20:22 Last Admin: 06/04/20 20:51 Dose: 0.5 mg Documented by: Ondansetron HCl (Ondansetron 4 Mg/2 Ml Sdv) 4 mg IVPUSH ONETIME ONE Stop: 06/04/20 20:22 Last Admin: 06/04/20 20:51 Dose: 4 mg Documented by: Ondansetron HCl (Ondansetron 4 Mg/2 Ml Sdv) 4 mg IVPUSH ONETIME ONE Stop: 06/05/20 01:35 Last Admin: 06/05/20 01:38 Dose: 4 mg Documented by: Ondansetron HCl (Ondansetron 4 Mg/2 Ml Sdv) Confirm Administered Dose 4 mg .ROUTE .STK-MED ONE Stop: 06/05/20 01:36 Last Admin: 06/05/20 02:51 Dose: Not Given Documented by: Sodium Chloride (Sodium Chloride 0.9% 10 Ml Syringe) 10 ml FLUSH ONETIME ONE Stop: 06/04/20 20:57 Last Admin: 06/04/20 21:50 Dose: 10 ml Documented by: - Exam Quality Assessment: No: Supplemental Oxygen General: Alert, Oriented, Cooperative, No Acute Distress Lungs: Normal Respiratory Effort. No: Wheezing GI/Abdominal Exam: Soft, No Distention Extremities: No Pedal Edema Skin: Warm, Dry Psy/Mental Status: Alert, Normal Affect - Patient Data Lab Results Last 24 hrs: Laboratory Results - last 24 hr 06/04/20 06/04/20 06/04/20 Range/Units 20:40 20:40 21:09 WBC 12.1 H (4.5-11.0) K/uL RBC 4.58 (3.30-5.50) M/uL Hgb 14.4 (12.0-15.0) g/dL Hct 40.6 (36.0-48.0) % MCV 89 (80-98) fL MCH 31 (27-31) pg MCHC 36 (32-36) % Plt Count 393 (150-400) K/uL Neut % (Auto) 88 H (36-66) % Lymph % (Auto) 8 L (24-44) % [place] % (Auto) 4 (2-6) % Eos % (Auto) 0 L (2-4) % Baso % (Auto) 0 (0-1) % Sodium 140 (140-148) mmol/L Potassium 3.2 L (3.6-5.2) mmol/L Chloride 103 (100-108) mmol/L Carbon Dioxide 18 L (21-32) mmol/L Anion Gap 22.2 H (5.0-14.0) mmol/L BUN 14 (7-18) mg/dL Creatinine 1.2 H (0.6-1.0) mg/dL Est Cr Clr Drug Dosing 40.91 mL/min Estimated GFR (MDRD) 47 L (>60) Glucose 203 H (74-106) mg/dL Hemoglobin A1c (4.5-6.2) % Lactic Acid (0.4-2.0) mmol/L Calcium 9.3 (8.5-10.1) mg/dL Total Bilirubin 1.5 H (0.2-1.0) mg/dL AST 17 (15-37) U/L ALT 22 (12-78) U/L Alkaline Phosphatase 91 (46-116) U/L C-Reactive Protein (0.0-0.3) mg/dL Total Protein 6.8 (6.4-8.2) g/dL Albumin 3.9 (3.4-5.0) g/dL Globulin 2.9 (2.3-3.5) g/dL Albumin/Globulin Ratio 1.3 (1.2-2.2) Lipase 78 (73-393) U/L Ketones Negative (NEGATIVE) 06/05/20 06/05/20 06/05/20 Range/Units 04:30 04:35 04:35 WBC 9.7 (4.5-11.0) K/uL RBC 4.47 (3.30-5.50) M/uL Hgb 14.0 (12.0-15.0) g/dL Hct 40.7 (36.0-48.0) % MCV 91 (80-98) fL MCH 31 (27-31) pg MCHC 34 (32-36) % Plt Count 335 (150-400) K/uL Neut % (Auto) 81 H (36-66) % Lymph % (Auto) 13 L (24-44) % [place] % (Auto) 6 (2-6) % Eos % (Auto) 0 L (2-4) % Baso % (Auto) 0 (0-1) % Sodium 141 (140-148) mmol/L Potassium 3.0 L (3.6-5.2) mmol/L Chloride 106 (100-108) mmol/L Carbon Dioxide 20 L (21-32) mmol/L Anion Gap 18.0 H (5.0-14.0) mmol/L BUN 10 (7-18) mg/dL Creatinine 1.0 (0.6-1.0) mg/dL Est Cr Clr Drug Dosing 49.09 mL/min Estimated GFR (MDRD) 58 L (>60) Glucose 148 H (74-106) mg/dL Hemoglobin A1c (4.5-6.2) % Lactic Acid 1.2 (0.4-2.0) mmol/L Calcium 8.7 (8.5-10.1) mg/dL Total Bilirubin 1.5 H (0.2-1.0) mg/dL AST 13 L (15-37) U/L ALT 21 (12-78) U/L Alkaline Phosphatase 83 (46-116) U/L C-Reactive Protein < 0.05 (0.0-0.3) mg/dL Total Protein 6.4 (6.4-8.2) g/dL Albumin 3.6 (3.4-5.0) g/dL Globulin 2.8 (2.3-3.5) g/dL Albumin/Globulin Ratio 1.3 (1.2-2.2) Lipase (73-393) U/L Ketones (NEGATIVE) 06/05/20 Range/Units 04:35 WBC (4.5-11.0) K/uL RBC (3.30-5.50) M/uL Hgb (12.0-15.0) g/dL Hct (36.0-48.0) % MCV (80-98) fL MCH (27-31) pg MCHC (32-36) % Plt Count (150-400) K/uL Neut % (Auto) (36-66) % Lymph % (Auto) (24-44) % [place] % (Auto) (2-6) % Eos % (Auto) (2-4) % Baso % (Auto) (0-1) % Sodium (140-148) mmol/L Potassium (3.6-5.2) mmol/L Chloride (100-108) mmol/L Carbon Dioxide (21-32) mmol/L Anion Gap (5.0-14.0) mmol/L BUN (7-18) mg/dL Creatinine (0.6-1.0) mg/dL Est Cr Clr Drug Dosing mL/min Estimated GFR (MDRD) (>60) Glucose (74-106) mg/dL Hemoglobin A1c 5.8 (4.5-6.2) % Lactic Acid (0.4-2.0) mmol/L Calcium (8.5-10.1) mg/dL Total Bilirubin (0.2-1.0) mg/dL AST (15-37) U/L ALT (12-78) U/L Alkaline Phosphatase (46-116) U/L C-Reactive Protein (0.0-0.3) mg/dL Total Protein (6.4-8.2) g/dL Albumin (3.4-5.0) g/dL Globulin (2.3-3.5) g/dL Albumin/Globulin Ratio (1.2-2.2) Lipase (73-393) U/L Ketones (NEGATIVE) Result Diagrams: 06/05/20 04:35 06/05/20 04:35 Sepsis Event Note - Evaluation Sepsis Screening Result: No Definite Risk - Focused Exam Vital Signs: Vital Signs Temp Pulse Resp BP Pulse Ox 06/05/20 07:28 97 06/05/20 07:00 36.3 C 98 18 117/69 97 06/05/20 04:14 99 06/05/20 03:45 37.1 C 44 L 18 158/74 H 100 06/05/20 00:55 87 16 109/67 95 06/05/20 00:35 86 16 101/61 96 06/05/20 00:15 89 16 104/64 96 06/04/20 23:55 87 16 106/63 96 06/04/20 23:35 88 17 108/60 96 06/04/20 23:15 85 17 107/64 96 06/04/20 22:55 86 16 104/64 96 - Problem List Review Problem List Initiated/Reviewed/Updated: Yes - My Orders Last 24 Hours: My Active Orders 06/05/20 10:37 Notify Provider Consults [RC] ASDIRECTED Consult to Physician [CONS] Routine 06/05/20 10:38 Benzocaine/Cetylpyrd/Menthol [Cepacol Sore Throat] 1 lozenge MUCMEM Q1H PRN 06/05/20 10:45 D5 1/2 NS w/ 20 mEq/L KCl 1,000 ml IV ASDIRECTED - Plan Plan:: ASSESSMENT AND PLAN - Gastric outlet obstruction-likely secondary to multiple gastric ulcers that have been treated with medical management as well as recent Kiki fundoplication. She has been unable to consume anything more than liquids for multiple weeks and has had frequent nausea and significant vomiting. She is losing weight. She is requesting a second opinion regarding surgical management and has requested that she be evaluated by Dr. Matias. -Continue NG tube -Surgical consultation with Dr. Matias anticipate surgical intervention tomorrow -Symptomatic management of pain and nausea -Continue PPI Maintenance issues - - DVT prophylaxis -mechanical - GI prophylaxis -PPI - Nutrition -nothing by mouth Disposition -I would anticipate discharge home after the hospital stay Jose Wasserman M.D.
[2020-06-05] MEDS ORDERED: HYDROmorphone/Normal Saline 15 MG/30 ML PCA IV PRN (11:31)
[2020-06-05] MEDS: Dextrose 5%-Lactated Ringers 1,000 ML IV SCH (11:54)
[2020-06-05] MEDS ORDERED: Ketamine 500 MG/5 ML MDV IV SCH (12:00)
[2020-06-05] MEDS ORDERED: Thiamine 100 MG in Sodium Chloride 0.9% 100 ML IV ONE (12:00)
[2020-06-05] MEDS ORDERED: Ketamine 50 MG in Sodium Chloride 0.9% 49.5 ML IV SCH (12:00)
[2020-06-05] MEDS ORDERED: Naloxone 0.4 MG/ML SDV IV PRN (12:00)
[2020-06-05] MEDS: Loratadine 10 MG Tab.DIS PO SCH (12:46)
[2020-06-05] MEDS: Montelukast 5 MG Tab.Chew PO SCH (20:57)
[2020-06-05] MEDS ORDERED: Montelukast 10 MG Tab PO SCH (21:00)
[2020-06-06] MEDS: Pantoprazole 40 MG Vial IV SCH (03:05)
[2020-06-06 06:00] LABS: CORONAVIRUS COVID-19 NAA NEGATIVE (NEGATIVE)
[2020-06-06] MEDS: Dextrose 5%-Lactated Ringers 1,000 ML IV SCH ×2 (06:36→13:38)
[2020-06-06] MEDS ORDERED: Meropenem 500 MG SDV ONE (06:44)
[2020-06-06] MEDS: Levalbuterol HCl 0.63 MG/3 ML Neb NEB SCH ×5 (07:21→22:22)
[2020-06-06] MEDS ORDERED: Glycopyrrolate 0.2 MG/ML 5 ML MDV ONE (07:47)
[2020-06-06] MEDS ORDERED: Neostigmine Methylsulfate 1 MG/ML 5 ML Syringe ONE (07:47)
[2020-06-06] MEDS ORDERED: Rocuronium 50 MG/5 ML Vial ONE (07:47)
[2020-06-06] MEDS ORDERED: Ondansetron 4 MG/2 ML SDV ONE (07:47)
[2020-06-06] MEDS ORDERED: Dexamethasone 4 MG/ML SDV ONE (07:47)
[2020-06-06] MEDS ORDERED: Propofol 200 MG/20 ML SDV ONE (07:47)
[2020-06-06] MEDS ORDERED: Succinylcholine 200 MG/10 ML MDV ONE (07:47)
[2020-06-06] MEDS ORDERED: fentaNYL 250 MCG/5 ML SDV ONE ×2 (07:49→09:16)
[2020-06-06] MEDS ORDERED: cefOXitin 2 GM in Sodium Chloride 0.9% 50 ML IV ONE (08:00)
[2020-06-06] MEDS ORDERED: Scopolamine 1.5 MG Transdermal Patch ONE (09:28)
[2020-06-06] MEDS ORDERED: Bupivacaine 0.5% 50 ML MDV ONE (10:38)
[2020-06-06] MEDS ORDERED: Lidocaine 1% with EPINEPHrine 1:100,000 50 ML MDV ONE (10:38)
[2020-06-06] MEDS ORDERED: hydrOXYzine HCL 100 MG/2 ML SDV IM ONE (10:55)
--- NOTE | 2020-06-06 11:53 | PCM.SN.2 ---
- Free Text/Narrative Note: Patient is going to the operating room today with Dr. Matias. She does not appear to have any acute medical problems and has no significant chronic medical problems. I anticipate most of her care moving forward will be routine postoperative care. The hospitalist service will sign off at this time. Please feel free to contact us if there are any acute issues or concerns. Jose Wasserman MD
[2020-06-06] MEDS ORDERED: diphenhydrAMINE 50 MG/ML SDV IVPUSH PRN (13:00)
[2020-06-06] MEDS ORDERED: Acetaminophen 500 MG Tab PO PRN (13:00)
[2020-06-06] MEDS ORDERED: Labetalol 20 MG/4 ML Syringe IVPUSH PRN (13:00)
[2020-06-06] MEDS: Cyclobenzaprine 10 MG Tab PO PRN ×2 (13:38→22:21)
[2020-06-06] MEDS: Ondansetron 4 MG/2 ML SDV IV PRN (13:47)
[2020-06-06] MEDS: Loratadine 10 MG Tab.DIS PO SCH (14:18)
[2020-06-06] MEDS: Morphine PF 150 MG/30 ML PCA Syringe IV SCH (15:49)
[2020-06-06] MEDS: cefOXitin 2 GM in Sodium Chloride 0.9% 50 ML IV SCH ×2 (15:59→21:07)
[2020-06-06] MEDS: Potassium Phos in 0.9 % NaCl 15 MMOL in Premix Bag 1 BAG IV SCH ×4 (16:22→19:44)
[2020-06-06] MEDS: Pantoprazole 40 MG Vial IVPUSH SCH (16:22)
[2020-06-06] MEDS: 1: AA 5%/Calcium/D15W/Lytes 1,000 ML with MVI, Adult with Vitamin K 10 ML, Zinc/Copper/M IV SCH ×4 (16:22)
[2020-06-06] MEDS: Acetaminophen 500 MG Tab PO SCH (16:23)
[2020-06-06] MEDS: Magnesium Sulfate/Water 2 GM/50 ML BAG IV SCH ×2 (16:23→21:07)
[2020-06-06] MEDS: Montelukast 5 MG Tab.Chew PO SCH (21:08)
[2020-06-07] MEDS: 1: AA 5%/Calcium/D15W/Lytes 1,000 ML with MVI, Adult with Vitamin K 10 ML, Zinc/Copper/M IV SCH ×12 (02:02→22:35)
[2020-06-07] MEDS: Acetaminophen 500 MG Tab PO SCH ×4 (02:02→23:41)
[2020-06-07] MEDS: cefOXitin 2 GM in Sodium Chloride 0.9% 50 ML IV SCH ×2 (03:27→09:01)
[2020-06-07] MEDS: Magnesium Sulfate/Water 2 GM/50 ML BAG IV SCH ×4 (03:27→22:36)
[2020-06-07] MEDS ORDERED: Iopamidol 612 MG/ML 50 ML SDV PO STA (03:47)
[2020-06-07] MEDS: LORazepam 1 MG Tab PO PRN ×2 (05:45→20:46)
[2020-06-07] MEDS: Dextrose 5%-Lactated Ringers 1,000 ML IV SCH ×2 (05:54→12:27)
--- NOTE | 2020-06-07 06:30 | CRLCT ---
Final Report: INDICATION: Intractable vomiting, abdominal pain TECHNIQUE: CT abdomen and pelvis acquired with 72 cc Isovue 300 IV contrast. COMPARISON: May 22, 2020 FINDINGS: Lower chest: Unremarkable. Liver: Unremarkable. Spleen: Unremarkable. Pancreas: Unremarkable. Gallbladder and bile ducts: S/p cholecystectomy. Adrenal glands: Unremarkable. Kidneys: Unremarkable. GI tract: Postoperative changes of a Kiki fundoplication. Moderate amount of fluid and air in the stomach. Appendix is not seen. Vascular structures: Unremarkable. Lymph nodes: Unremarkable. Miscellaneous: Unremarkable. No free air or significant free fluid. Pelvic Organs: Unremarkable. Bones: Unremarkable for age. IMPRESSION: Moderate amount of fluid and air in the stomach. Consider gastric outlet obstruction. No acute intra-abdominal inflammatory process identified. Postoperative changes of a Kiki fundoplication. Status post cholecystectomy. Please note that all CT scans at this facility use dose modulation, iterative reconstruction, and/or weight-based dosing when appropriate to reduce radiation dose to as low as reasonably achievable. Dictated by Amina Mitchell MD @ Jun 05 2020 1:45AM Signed by: Amina Mitchell MD @06/05/2020 1:57:06 AM (Electronic Signature) CECILIO
[2020-06-07] MEDS: Levalbuterol HCl 0.63 MG/3 ML Neb NEB SCH ×5 (07:20→23:41)
[2020-06-07] MEDS: Cyclobenzaprine 10 MG Tab PO PRN ×2 (07:53→16:37)
[2020-06-07] MEDS ORDERED: Central Total Parenteral Nutrition Bag SCH (08:00)
--- NOTE | 2020-06-07 08:56 | PN ---
DATE OF SERVICE: 06/07/2020 SUBJECTIVE: Faith is postoperative day #1. She reports her pain is controlled. Oral intake 900. Urine output 3000 via Merida catheter. CALI drain put out 145 mL of a light red drainage. She has no other concerns or questions today. OBJECTIVE: GENERAL: Faith Brannon is a 55-year-old female. VITAL SIGNS: TPR is 97.7, 91, 20, blood pressure 110/84. HEENT: Negative. NECK: Supple. HEART: Regular rate and rhythm. LUNGS: Clear. ABDOMEN: Dressings dry and intact. Abdominal binder on. EXTREMITIES: Without peripheral edema. ASSESSMENT: 1. Insertion of left subclavian triple-lumen catheter. 2. Exploratory laparotomy with: a. Distal gastrectomy with Jeffery-en-Y gastrojejunostomy. b. Placement of Interceed mesh. POSTOPERATIVE DIAGNOSES: Inadequate central venous access and gastro reflux, refractory to medical management. Date of procedure: 06/06/2020. Surgeon: Prince Matias MD. PLAN: 1. Schedule, have consent signed for delayed primary closure in a.m., 06/08/2020, IV local sedation, TAP block, n.p.o. after midnight. 2. Step 2 gastric bypass diet. 3. Continue same TPN rate and content. 4. Check CBC, CMP, and phos in a.m. 5. We will evaluate p.r.n. or in a.m. Leela Montana PA-C /[id number]
[2020-06-07] MEDS: Loratadine 10 MG Tab.DIS PO SCH (09:00)
[2020-06-07] MEDS: Citalopram 20 MG Tab PO SCH (09:00)
--- NOTE | 2020-06-07 10:11 | CR ---
CHEST: Portable 06/05/2020 at 2:42 AM CLINICAL HISTORY:NG tube placement COMPARISON:April 2020 FINDINGS: Lung bases are clear. Small intestinal configuration is nonspecific. There is an NG tube in the stomach.. Impression: Limited view of the upper abdomen NG tube is in the stomach
--- NOTE | 2020-06-07 10:14 | CR ---
CHEST: Portable 06/05/2020 at 2:41 AM CLINICAL HISTORY:NG tube placement COMPARISON:April 2020 FINDINGS: The heart size, pulmonary vascularity and hilar structures are normal. No infiltrate effusion or pneumothorax is seen. NG tube is seen with the side port at the GE junction IMPRESSION: No acute cardiopulmonary process. NG tube is in the fundus of the stomach. Side port is at the GE junction
--- NOTE | 2020-06-07 10:54 | CR ---
CHEST: Portable 06/06/2020 at 11:24 AM CLINICAL HISTORY:Catheter placement COMPARISON:06/05/2020 FINDINGS: There is a left subclavian catheter. The tip is in the superior vena cava atrial junction region. The heart size, pulmonary vascularity and hilar structures are normal. No infiltrate effusion or pneumothorax is seen. NG tube is been removed. IMPRESSION: Left subclavian catheter as above No acute cardiopulmonary process.
--- NOTE | 2020-06-07 12:29 | CR ---
UGI Limited HISTORY: Post surgery FINDINGS: Patient swallowed water-soluble contrast. Upright views of the abdomen show no evidence of extravasation or obstruction. There is a surgical drain in the upper abdomen. There is some gaseous distention of the stomach. IMPRESSION: Status post surgery No extravasation or obstruction seen Persistent gaseous distention of the stomach.
[2020-06-07] MEDS: SCOPOLAMINE PATCH CHECK TOP SCH (13:45)
--- NOTE | 2020-06-07 14:49 | CONS ---
DATE OF SERVICE: 06/05/2020 REFERRING PHYSICIAN: CONSULTING PHYSICIAN: Prince Matias MD This is a 55-year-old who has had considerable problems with upper GI problems since January. At that time, she was diagnosed with some peptic ulcer disease and had some endoscopic ablations done in [place]. Subsequently, the patient underwent a Kiki fundoplication per Dr. Hagen. She has had problems with persistent gastric outlet symptoms since that time, and after having vomiting over the last week or so, has presented to the emergency room. She on CT scan last night had a quite distended stomach and obvious gastric outlet obstruction. She has been on medical management for the ulcer disease since January. After discussion of the situation with hospitalist, Dr. Wasserman, she requested surgical consultation regarding treatment of the gastric outlet obstruction. Otherwise, the patient's past medical history, social history, family history, medications, and allergies are as per the documentation on the electronic medical record. Examination shows the patient to be afebrile with stable vital signs. She is somewhat apprehensive. Does have a scopolamine patch in place. The labs show hyperchloremic type metabolic acidosis with bicarbonate of 20 consistent with gastric outlet obstruction and ongoing vomiting, and the potassium is low as well. Recent laparoscopic trocar site incisions are clean. The plan will be to continue hydration today with some potassium supplementation. We give her some thiamine as she has not had much in the way of oral intake recently. Plan will be to proceed with exploratory laparotomy with distal gastrectomy with Jeffery-en-Y gastrojejunostomy. This I think should control the issues of the nausea and vomiting and probably will be helpful with regard to reflux symptoms as well the stomach is emptying well at that point. The patient is clinically malnourished at this point, and a central line will be placed to allow postoperative IV hyperalimentation to augment her nutritional status. Potential risks of the procedure were reviewed with the patient including bleeding, infection, injury to underlying viscera, leaks from the GI tract closures, and problems with persistent nausea and vomiting following the procedure were all gone over and the patient wishes to proceed. This will be undertaken tomorrow. Prince Matias MD /[id number]
[2020-06-07] MEDS: Pantoprazole 40 MG Vial IVPUSH SCH (16:25)
[2020-06-07] MEDS: hydrOXYzine HCL 100 MG/2 ML SDV IM PRN (16:37)
[2020-06-07] MEDS: Montelukast 5 MG Tab.Chew PO SCH (20:36)
[2020-06-08] MEDS: Magnesium Sulfate/Water 2 GM/50 ML BAG IV SCH ×2 (03:51→09:47)
[2020-06-08] MEDS: hydrOXYzine HCL 100 MG/2 ML SDV IM PRN (03:56)
[2020-06-08] MEDS ORDERED: Bupivacaine 0.5% 50 ML MDV ONE (06:47)
[2020-06-08] MEDS ORDERED: Lidocaine 1% with EPINEPHrine 1:100,000 50 ML MDV ONE (06:47)
[2020-06-08] MEDS ORDERED: Meropenem 500 MG SDV ONE (06:47)
[2020-06-08] MEDS ORDERED: Propofol 200 MG/20 ML SDV ONE (07:09)
[2020-06-08] MEDS ORDERED: Midazolam 1 MG/ML 2 ML SDV ONE (07:09)
[2020-06-08] MEDS ORDERED: fentaNYL 100 MCG/2 ML SDV ONE (07:09)
[2020-06-08] MEDS: Levalbuterol HCl 0.63 MG/3 ML Neb NEB SCH ×5 (07:12→22:20)
[2020-06-08] MEDS ORDERED: Lactated Ringers 1,000 ML ONE (07:24)
[2020-06-08] MEDS ORDERED: Central Total Parenteral Nutrition Bag SCH (07:30)
--- NOTE | 2020-06-08 08:34 | PN ---
DATE OF SERVICE: 06/08/2020 SUBJECTIVE: Faith is n.p.o. She will be having a delayed primary closure. Reports pain is controlled. OBJECTIVE: VITAL SIGNS: Have been stable. Oral intake 1755. Urine output via Merida catheter, 2380. REVIEW OF SYSTEMS: Remainder of review of systems negative for any pertinent positives and negatives. OBJECTIVE: GENERAL: Faith Brannon is a pleasant 55-year-old female. She is alert and oriented, sitting up in the chair. VITAL SIGNS: TPR is 98.6, 112, 18, blood pressure 138/90. HEENT: Negative. NECK: Supple. HEART: Regular rate and rhythm. LUNGS: Clear. ABDOMEN: Dressings dry and intact. Abdominal binder is on. EXTREMITIES: Without peripheral edema. ASSESSMENT: 1. Insertion of left subclavian triple-lumen catheter. 2. Exploratory laparotomy with: a. Distal gastrectomy with Jeffery-en-Y gastrojejunostomy. b. Placement of Interceed mesh. POSTOPERATIVE DIAGNOSES: 1. Inadequate central venous access. 2. Gastrogastric reflux refractory to medical management. 3. Date of procedure 06/06/2020. Surgeon: Prince Matias MD. PLAN: Continue same TPN rate and content. Check CBC, CMP, and phos in a.m. Other orders to be written after delayed primary closure. Leela Montana PA-C /[id number]
[2020-06-08] MEDS: 1: AA 5%/Calcium/D15W/Lytes 1,000 ML with MVI, Adult with Vitamin K 10 ML, Zinc/Copper/M IV SCH ×8 (08:47→21:57)
[2020-06-08] MEDS ORDERED: Cyanocobalamin (Vitamin B12) 1,000 MCG/ML SDV IM ONE (09:00)
[2020-06-08] MEDS: Citalopram 20 MG Tab PO SCH (09:44)
[2020-06-08] MEDS: Acetaminophen 500 MG Tab PO SCH ×2 (09:44→15:19)
[2020-06-08] MEDS: Loratadine 10 MG Tab.DIS PO SCH (09:44)
[2020-06-08] MEDS: SCOPOLAMINE PATCH CHECK TOP SCH (09:47)
[2020-06-08] MEDS: Pantoprazole 40 MG Vial IVPUSH SCH (15:19)
[2020-06-08] MEDS: Morphine PF 150 MG/30 ML PCA Syringe IV SCH (17:32)
[2020-06-08] MEDS: LORazepam 1 MG Tab PO PRN (18:10)
[2020-06-08] MEDS: Montelukast 5 MG Tab.Chew PO SCH (20:13)
[2020-06-09] MEDS: Acetaminophen 500 MG Tab PO SCH ×3 (01:22→15:29)
[2020-06-09] MEDS ORDERED: Central Total Parenteral Nutrition Bag SCH (07:00)
[2020-06-09] MEDS: Levalbuterol HCl 0.63 MG/3 ML Neb NEB SCH ×5 (07:07→22:35)
[2020-06-09] MEDS: Loratadine 10 MG Tab.DIS PO SCH (07:59)
[2020-06-09] MEDS: Citalopram 20 MG Tab PO SCH (07:59)
[2020-06-09] MEDS: Docusate Sodium 100 MG Cap PO SCH ×2 (09:15→22:30)
[2020-06-09] MEDS: Bisacodyl 5 MG Tab PO SCH ×2 (09:16→22:30)
[2020-06-09] MEDS: LORazepam 1 MG Tab PO PRN ×3 (09:20→22:34)
--- NOTE | 2020-06-09 09:53 | PN ---
DATE OF SERVICE: 06/09/2020 SUBJECTIVE: Faith reports her pain is better controlled after her delayed primary closure. Vital signs have been stable, afebrile. Up ambulating. Oral intake has increased to 1780, and urine output 3550. REVIEW OF SYSTEMS: Remainder of review of systems negative for any pertinent positives or negatives. OBJECTIVE: GENERAL: Faith Brannon is a pleasant 55-year-old female, alert and orientated, quite talkative this morning. VITAL SIGNS: TPR is 98.7, 97, 16, and blood pressure 131/82. HEENT: Negative. NECK: Supple. HEART: Regular rate and rhythm. LUNGS: Clear. ABDOMEN: Dressings are dry and intact. Aquacel dressings on. EXTREMITIES: Without peripheral edema. ASSESSMENT: 1. Delayed primary closure 06/08/2020. Surgeon: Prince Matias. 2. Insertion of left subclavian triple-lumen catheter. 3. Exploratory laparotomy with;. a. Distal gastrectomy with Jeffery-en-Y gastrojejunostomy. b. Placement of Interceed mesh. POSTOPERATIVE DIAGNOSES: 1. Inadequate venous access. 2. Gastrogastric reflux, refractory to medical management. 3. Date of procedure 06/06/2020. Surgeon: Prince Mtaias MD. PLAN: 1. Decrease TPN rate to 40 mL/h. 2. Discontinue RESEARCH PHYSICIST. 3. Oxycodone 5 mg q.4 hours p.r.n. pain. 4. Dulcolax oral tablets 10 mg oral b.i.d. 5. Colace 100 mg b.i.d. p.o. 6. May shower. 7. Step 2 gastric bypass diet starting today and to continue for 2 weeks. 8. Plan for discharge in the a.m. 9. We will evaluate p.r.n. or in the a.m. Leela Montana PA-C /[id number]
[2020-06-09] MEDS ORDERED: Tamsulosin 0.4 MG Cap.ER PO ONE (10:50)
[2020-06-09] MEDS: oxyCODONE 5 MG Tab PO PRN ×3 (11:15→22:34)
[2020-06-09] MEDS ORDERED: 1: AA 5%/Calcium/D15W/Lytes 1,000 ML with MVI, Adult with Vitamin K 10 ML, Zinc/Copper/M IV SCH ×4 (13:00)
[2020-06-09] MEDS ORDERED: Furosemide 20 MG/2 ML VIAL IVPUSH ONE (14:39)
[2020-06-09] MEDS: Pantoprazole 40 MG Tab.CR PO SCH (15:29)
[2020-06-09] MEDS: Montelukast 5 MG Tab.Chew PO SCH (22:29)
[2020-06-09] MEDS: Tamsulosin 0.4 MG Cap.ER PO SCH (22:30)
[2020-06-09] MEDS: Cyclobenzaprine 10 MG Tab PO PRN (22:35)
[2020-06-10] MEDS: Acetaminophen 500 MG Tab PO SCH ×4 (02:50→23:48)
[2020-06-10] MEDS: oxyCODONE 5 MG Tab PO PRN ×3 (03:39→12:56)
[2020-06-10] MEDS: Levalbuterol HCl 0.63 MG/3 ML Neb NEB SCH ×5 (06:59→22:22)
[2020-06-10] MEDS ORDERED: Central Total Parenteral Nutrition Bag SCH (07:45)
[2020-06-10] MEDS: Citalopram 20 MG Tab PO SCH (08:33)
[2020-06-10] MEDS: Bisacodyl 5 MG Tab PO SCH ×2 (08:35→22:25)
[2020-06-10] MEDS: Loratadine 10 MG Tab.DIS PO SCH (08:35)
[2020-06-10] MEDS: Docusate Sodium 100 MG Cap PO SCH ×2 (08:36→22:25)
[2020-06-10] MEDS: Bisacodyl 10 MG Supp RECTAL SCH ×2 (08:36→22:25)
--- NOTE | 2020-06-10 09:19 | PN ---
DATE OF SERVICE: 06/10/2020 SUBJECTIVE: Faith is taking Dulcolax and Colace. Has not had a bowel movement yet. States she is starting to pass some flatus. She had difficulty voiding yesterday with residual urine on bladder scan, so she had a straight cath and 1100 mL returned. After a straight cath and starting on Flomax, she has been urinating without any difficulty. She has had 3150 out total. Oral intake is 1170, tolerating a step 2 gastric bypass diet. REVIEW OF SYSTEMS: Remainder of review of systems negative for any pertinent positives and negatives. OBJECTIVE: GENERAL: Faith Brannon is a pleasant 55-year-old female. She is alert and orientated. VITAL SIGNS: TPR is 97.9, 118, 16, blood pressure 123/74. HEENT: Negative. NECK: Supple. HEART: Regular rate and rhythm. LUNGS: Clear. ABDOMEN: Dressings dry and intact. Abdominal binder is on. EXTREMITIES: Without peripheral edema. ASSESSMENT: 1. Delayed primary closure, 06/08/2020. Surgeon: Dr. Prince Matias. 2. Insertion of left subclavian triple-lumen catheter. 3. Exploratory laparotomy with: a. Distal gastrectomy with Jeffery-en-Y gastrojejunostomy. b. Placement of Interceed mesh. POSTOPERATIVE DIAGNOSES: 1. Inadequate venous access. 2. Gastrogastric reflux, refractory to medical management. 3. Date of procedure 06/06/2020. Surgeon: Prince Matias MD. PLAN: 1. Discontinue TPN. 2. Saline lock, heparin flush, triple lumen. 3. Dulcolax suppositories b.i.d. until BM. We will evaluate p.r.n. or in a.m. Leela Montana PA-C /[id number]
[2020-06-10] MEDS ORDERED: Simethicone 80 MG Tab.Chew PO PRN (10:01)
[2020-06-10] MEDS: Ondansetron 4 MG Tab.DIS PO PRN ×2 (10:56→19:29)
[2020-06-10] MEDS ORDERED: Sodium Phosphate,Monobasic/Sodium Phosphate,Dibasic Enema 133 ML Bottle RECTAL ONE ×2 (11:00→12:30)
[2020-06-10] MEDS: Polyethylene Glycol 3350 Powder 17 GM Packet PO SCH ×2 (13:50→22:25)
[2020-06-10] MEDS: LORazepam 1 MG Tab PO PRN ×2 (15:17→21:28)
[2020-06-10] MEDS: Pantoprazole 40 MG Tab.CR PO SCH (15:20)
[2020-06-10] MEDS: Metoclopramide 10 MG/2 ML SDV IVPUSH PRN (21:27)
[2020-06-10] MEDS: Tamsulosin 0.4 MG Cap.ER PO SCH (22:16)
[2020-06-10] MEDS: Montelukast 5 MG Tab.Chew PO SCH (22:16)
[2020-06-11] MEDS: oxyCODONE 5 MG Tab PO PRN ×2 (03:03→09:19)
[2020-06-11] MEDS: Metoclopramide 10 MG/2 ML SDV IVPUSH PRN (03:11)
[2020-06-11] MEDS: Levalbuterol HCl 0.63 MG/3 ML Neb NEB SCH ×5 (07:07→23:20)
--- NOTE | 2020-06-11 09:03 | CR ---
Abdomen 2V AP Flat Upright CLINICAL HISTORY: Postop pain, bloating, nausea FINDINGS: Contrast from recent postoperative upper GI is in the cecum. There is some contrast in the proximal sigmoid. There is diffuse gaseous distention of the colon. There are some air-filled small bowel loops in a nonacute pattern. Surgical drain is been removed. IMPRESSION: Gaseous distention most likely related to postoperative ileus
[2020-06-11] MEDS: Citalopram 20 MG Tab PO SCH (09:15)
[2020-06-11] MEDS: Acetaminophen 500 MG Tab PO SCH ×2 (09:15→15:08)
[2020-06-11] MEDS: Docusate Sodium 100 MG Cap PO SCH ×2 (09:16→20:17)
[2020-06-11] MEDS: Loratadine 10 MG Tab.DIS PO SCH (09:16)
[2020-06-11] MEDS: Bisacodyl 5 MG Tab PO SCH ×2 (09:16→20:17)
[2020-06-11] MEDS: Bisacodyl 10 MG Supp RECTAL SCH ×2 (09:16→20:18)
--- NOTE | 2020-06-11 09:16 | PN ---
DATE OF SERVICE: 06/11/2020 SUBJECTIVE: Faith Brannon states that she is "absolutely miserable." She did have 3 BMs, but is very nauseated. Vital signs have been stable. She has been up ambulating with encouragement. Oral intake was 730 and urine output 600 mL. Bowel movements with suppositories and oral Dulcolax and Colace; she has 3. Main concern right now is she is nauseated and is having pain on the top part of her incision. REVIEW OF SYSTEMS: Remainder of review of systems negative for any pertinent positives and negatives. OBJECTIVE: GENERAL: Faith Brannon is a pleasant 55-year-old female, alert, orientated. VITAL SIGNS: TPR is 99.6, 117, 16. Blood pressure 119/77. HEENT: Negative. NECK: Supple. HEART: Regular rate and rhythm. LUNGS: Clear. ABDOMEN: Unable to examine due to pulling my hand away and states it is too tender. Dressings are dry and intact. Abdominal binder is on. EXTREMITIES: Without peripheral edema. ASSESSMENT: 1. Delayed primary closure 06/08/2020. Surgeon: Prince Matias MD. 2. Insertion of left subclavian triple-lumen catheter. 3. Exploratory laparotomy with;. a. Distal gastrectomy with Jeffery-en-Y gastrojejunostomy. b. Placement of Interceed mesh. POSTOPERATIVE DIAGNOSES: 1. Inadequate venous access. 2. Gastrogastric reflux, refractory to medical management. Date of procedure 06/06/2020. Surgeon: Prince Matias MD. PLAN: 1. Check abdominal flat and upright x-ray now. 2. Check CBC, CMP, mag, phos in a.m. Continue with Dulcolax tabs and Dulcolax suppositories, Colace. 3. We will evaluate p.r.n. or in a.m. Leela Montana PA-C /[id number]
[2020-06-11] MEDS: Polyethylene Glycol 3350 Powder 17 GM Packet PO SCH ×2 (09:17→20:19)
[2020-06-11] MEDS: Ondansetron 4 MG/2 ML SDV IV PRN (09:30)
[2020-06-11] MEDS: Pantoprazole 40 MG Tab.CR PO SCH (15:08)
[2020-06-11] MEDS: Tamsulosin 0.4 MG Cap.ER PO SCH (20:19)
[2020-06-11] MEDS: Montelukast 5 MG Tab.Chew PO SCH (20:19)
[2020-06-11] MEDS: LORazepam 1 MG Tab PO PRN (20:23)
[2020-06-12 04:09] VITALS: BP 114/68
[2020-06-12] MEDS: oxyCODONE 5 MG Tab PO PRN ×2 (04:09→08:24)
[2020-06-12] MEDS: Acetaminophen 500 MG Tab PO SCH ×2 (04:09→08:19)
[2020-06-12] MEDS: Cyclobenzaprine 10 MG Tab PO PRN (04:24)
--- NOTE | 2020-06-12 07:14 | CRLCR ---
Indication: Follow-up bowel obstruction Technique: Two views of the abdomen Comparison: 06/11/2020 Findings/Impression: : Persistent gaseous dilatation of the colon. Luminal contrast with air-fluid levels again seen in the distended cecum, ascending colon and mid transverse colon on the upright view. Contrast filled bowel segments in the inferior and left pelvis again noted on the upright view which could be related to the rectosigmoid colon or distal small bowel. Gas filled lower abdominal small bowel segments may be present. Correlate for distal colonic mechanical or functional obstruction. Cholecystectomy clips. Stable osseous structures. Dictated by Anthony Velez MD @ 06/12/2020 7:12:44 AM Dictated by: Anthony Velez MD @ 06/12/2020 07:12:52 (Electronically Signed)
[2020-06-12] MEDS: Levalbuterol HCl 0.63 MG/3 ML Neb NEB SCH (07:22)
[2020-06-12 08:10] VITALS: PULSE 100
[2020-06-12] MEDS: Citalopram 20 MG Tab PO SCH (08:19)
[2020-06-12] MEDS: Docusate Sodium 100 MG Cap PO SCH (08:19)
[2020-06-12] MEDS: Loratadine 10 MG Tab.DIS PO SCH (08:20)
[2020-06-12] MEDS: Bisacodyl 5 MG Tab PO SCH (08:20)
[2020-06-12] MEDS: Polyethylene Glycol 3350 Powder 17 GM Packet PO SCH (08:21)
--- NOTE | 2020-06-14 08:29 | DISCH ---
ADMISSION DIAGNOSES: Nausea, vomiting, gastric reflux refractory to medical management, failed Kiki fundoplication, gastric outlet obstruction by CT. DISCHARGE DIAGNOSES: 1. Insertion of left subclavian triple-lumen catheter. 2. Exploratory laparotomy with: a. Distal gastrectomy with Jeffery-en-Y gastrojejunostomy. b. Placement of Interceed mesh. POSTOPERATIVE DIAGNOSES: 1. Inadequate venous access. 2. Gastrogastric reflux refractory to medical management, gastric outlet obstruction. Date of procedure 06/06/2020. Surgeon: Prince Matias MD. 3. Delayed primary closure for open abdominal incision, 06/08/2020. Surgeon: Prince Matias MD. HISTORY: Faith Brannon had a Kiki fundoplication on 04/23/2020. She continued to have increase in abdominal pain and nausea, and a CT scan was obtained in the ER and was found to have a gastric outlet obstruction. NG was placed on day of admission, 06/05/2020. She had a consultation by Surgery on 06/05, and after preoperative evaluation and discussion of possible risks and possible complications, she wished to proceed with surgical procedure. Surgery was on 06/06/2020. She had no operative complications. She was given TPN nutrition. Delayed primary closure on 06/08/2020. On 06/09/2020, oral intake was improving on step 1. She was advanced to step 2 diet. VACCINE MANAGER was discontinued and started on oral pain medication along with bowel stimulation. TPN was decreased to 40 mL/hr. On 06/10/2020, TPN was discontinued. Her triple lumen was saline lock and heparin flushed. She was started on suppository. She had not yet had a bowel movement. On 06/11/2020, an abdominal flat and upright film was done. She started having some bowel movements, a total of 3, and during the night had a total of 2. She is feeling better. Pain is controlled and would like to be discharged to home. PHYSICAL EXAMINATION: GENERAL: Faith Brannon is a pleasant 55-year-old female. VITAL SIGNS: Height is 5 feet 1 inch, weight is 120 pounds, BMI is 22. TPR is 99.1, 100, 18, blood pressure 114/68. HEENT: Negative. NECK: Supple. HEART: Regular rate and rhythm. LUNGS: Clear. ABDOMEN: Aquacel dressings on. Abdominal binder is on. EXTREMITIES: Without peripheral edema. Left upper triple lumen will remain, was flushed day of discharge. EXTREMITIES: Without peripheral edema. DISPOSITION: Discharged to home. CONDITION: Stable and improving. FOLLOWUP: She is to follow up with Prince Matias, 06/16/2020, at 8:15 a.m. HOME MEDICATIONS: Oxycodone 5 mg p.o. q.6 hours p.r.n., #28; Flexeril 10 mg p.o. q.8 hours p.r.n., #30 for muscle spasms; acetaminophen 1000 mg q.8 hours p.r.n. pain; Celexa 40 mg p.o. daily; Colace 100 mg b.i.d. scheduled; citalopram 40 mg p.o. daily; promethazine 1 suppository rectal q.6 hours p.r.n. nausea; Protonix 40 mg p.o. b.i.d. p.r.n.; Singulair 10 mg at bedtime; Claritin 10 mg daily; Xopenex 2 puffs inhalation every 4 hours p.r.n. wheezing; MiraLAX 17 g p.o. b.i.d. p.r.n. DIET: Step 2 gastric bypass diet with no cereal for 2 weeks. Drink 8 to 10 glasses of water a day. ACTIVITY: No lifting greater than 10 pounds for 6 weeks. Walk 6 times daily inside your home. Driving: Do not drive for 1 week and within 6 to 8 hours of taking oxycodone. May shower. Keep operative site clean and dry. Wear abdominal binder for 6 weeks and then as tolerated. Take off Aquacel dressing in 3 days. Use incentive spirometer 10 times every hour while awake. /[id number]
--- NOTE | 2020-06-15 19:58 | OR ---
DATE OF PROCEDURE: 06/06/2020 SURGEON: Prince Matias MD PREOPERATIVE DIAGNOSES: 1. Indication for central venous access. 2. Gastric outlet obstruction refractory to medical management. POSTOPERATIVE DIAGNOSES: 1. Indication for central venous access. 2. Gastric outlet obstruction refractory to medical management. SUMMARY: This is a 55-year-old female status post Kiki fundoplication on 04/23/2020. She has had problems with ongoing nausea and vomiting since that procedure. She was noted to have peptic ulcer disease diagnosed in January of this past year. She has been on medical treatment since that time. She presented on 06/05 to the emergency room with increasing nausea and vomiting, and a CT scan showed a striking distention of the stomach with a very narrow gastric outlet with only a third of contrast exiting the stomach on CT scan. Given this, at this point, the patient appears to have gastric outlet obstruction, which is either functional or mechanical, which is refractory to medical management. The patient has poor oral intake since the fall and early winter, and given this, a central line will be inserted to facilitate postoperative TPN and the plan is to proceed with an exploratory laparotomy with a distal gastrectomy with a Jeffery-en-Y gastrojejunostomy. Potential risks of the procedure including bleeding, infection, leaks from various GI tract closures, and complications related to the gastrectomy, such as dumping syndrome or continued inadequate gastric emptying issues, were all reviewed along with the remote possibility of cardiopulmonary, septic, or hemorrhagic complications leading to were gone over, and the patient wishes to proceed additionally complications such as bleeding, infection, pneumohemothorax, or vascular injury, were likewise reviewed, and the patient wishes to proceed. DETAILS OF PROCEDURE: The patient was taken to the operating room and placed in a supine position. After general endotracheal anesthesia was induced, the upper chest and neck areas were prepped and draped. The left subclavian vein was then cannulated, a guidewire passed, and over the guidewire a triple-lumen catheter positioned. Good in and outflow were noted, and the ports were flushed with heparinized saline, and the catheter was sutured to the skin with some 3-0 silk stitch and a dressing applied. Subsequent chest x-ray showed good position without evident complications. A Merida catheter was then inserted and the abdomen prepped and draped. A midline incision from the xiphoid to just above the umbilicus was made and carried down through the full thickness of the abdominal wall. The patient had a nasogastric tube in place, and at this point, the stomach was fairly well decompressed. The greater omentum from a point adjacent to the proximal duodenum up to the level of the junction of the right and left gastroepiploic vessels was then freed up with a combination of cautery and staple division. The lesser omental tissue from the incisura angularis downward to the point just below the pylorus was similarly identified, and at that point, with the NG tube being pulled back somewhat, the stomach was resected proximally between the 2 above-mentioned landmarks on the lesser and greater curvatures with TOMMY purple and black loads. The stomach had some loose attachments to the area of the pancreas within the quadrant, and the proximal duodenum was divided with a TOMMY black load. Subsequently, this was noted to be somewhat edematous the proximal duodenum was then applied, which appeared to be somewhat more secure. This distal specimen was sent as a separate pathologic specimen. At this point, the Jeffery limb was fashioned. The ligament of Treitz was identified and the small bowel traced out 30 cm distal to that point was divided transversely with a TOMMY stapler. Small bowel was then traced out 75 cm further distally, where the dihl-an-tymk enteroenterostomy was accomplished with an internal firing of the Endo TOMMY 60 mm stapler. The common opening was then closed transversely with the same stapler, angles anastomosed, and the mesenteric defect approximated with some 3-0 Vicryl stitch. The opening in the avascular portion of the transverse mesocolon was created with a combination of cautery and blunt dissection, and the Jeffery limb easily came up into the area of the proximally divided stomach. The latter was then opened on its most dependent portion and the anvil of a 28 mm EEA stapler passed into the gastric lumen, and this area was then re-stapled with a black TOMMY load. The anvil was then brought out, again at the most dependent portion of the remaining stomach that was slightly posterior to the staple line. The main body of the EEA stapler was then placed in that opening and the Jeffery limb brought up the anvil and united with it, thus creating the gastrojejunostomy. Upon removal of the stapler, double donuts of mucosa were noted within it. The small bowel was closed off with a vascular staple line. The gastrojejunostomy was then reconstructed of 3-0 Vicryl seromuscular stitches and alcohol soaked reinforced with fibrin sealant. The point where the small bowel came through the transverse mesocolon was then closed off with a series of 3-0 Vicryl seromuscular stitches to the adjacent transverse mesocolon and omentum. A single Bobby- Christensen drain was then placed through the stab wound in the right subcostal area and placed over the area of the duodenal stump. The duodenal stump at that point had been reinforced with fibrin sealant as well as an omental patch, which was placed into position over the duodenal stump with a 3-0 Vicryl stitch as well, and the drain was placed across the area of the duodenal stump adjacent to the gastrojejunostomy to limit adhesion formation between the pelvic and abdominal wall. Interceed meshes x2 were placed underneath the incision and from there down towards the pelvis. The midline fascia was then approximated with a #2 Vicryl stitch. Bilateral transverse abdominis plane blocks were placed palpation of the needle tip and skin and subcutaneous tissue felt to be at high risk for wound infection. Primary closure was undertaken at this time, and we, therefore, packed open for delayed primary closure in 48 hours. The patient was taken to the recovery room in satisfactory condition. There were no evident complications. Prince Matias MD /[id number]
--- NOTE | 2020-06-16 15:02 | PN ---
DATE OF SERVICE: 06/08/2020 The patient underwent delayed primary closure of the abdominal incision. Today, we will restart the liquid diet but continue TPN today but decrease the rate to 82 mL and hour is picking up. Recheck some labs in the morning. The CALI drain and the Merida catheter were both removed today. She may be ready for switching over to oral pain medication tomorrow. Prince Matias MD /[id number]
--- NOTE | 2020-06-16 17:00 | OR ---
DATE OF PROCEDURE: 06/08/2020 SURGEON: Prince Matias MD PREOPERATIVE DIAGNOSIS: Open abdominal incision. POSTOPERATIVE DIAGNOSIS: Open abdominal incision. OPERATIVE PROCEDURE: Delayed primary closure of open abdominal incision. ANESTHESIA: Local plus IV sedation. INDICATION FOR PROCEDURE: The patient is 48 hours status post a partial gastrectomy with Jeffery-en-Y reconstruction for gastric outlet obstruction. Apparently, the skin and subcutaneous tissue were felt to be at high risk for wound infection if primary closure was undertaken. Given this, the patient is to undergo a delayed primary closure at this time. Potential risks of the procedure including bleeding and infection were reviewed and the patient wishes to proceed. DETAILS OF PROCEDURE: The patient was taken to the operating room and placed in a supine position. After IV sedation was administered, the operative dressing was taken down and found to be clean. The wound was prepped and draped and anesthetized with 1% lidocaine mixed with Marcaine and irrigated with meropenem-containing saline solution. Bilateral transverse abdominis plane blocks were then placed with ultrasound guidance. The incision was then closed with some 3-0 and 4-0 Vicryl stitch deep and rita for the skin. Dressing was applied and the previous Bobby-Christensen drain which had been placed was removed and the patient taken to the recovery room in satisfactory condition. Prince Matias MD /[id number]
== END 2020-06-12 09:15 | disposition home or self-care (01) | DRG 327 ==
LOC: JP.ED 19:58 → JP.MS 06-05 02:15
PROVIDERS: ADMIT Family Medicine; ATTEND Internal Medicine
PROC: 3E0M05Z Introduction of Adhesion Barrier into Peritoneal Cavity, Open Approach (ICD-10-PCS; principal; 2020-06-06)
PROC: 0D160ZA Bypass Stomach to Jejunum, Open Approach (ICD-10-PCS; principal; 2020-06-06)
PROC: 0DB60ZZ Excision of Stomach, Open Approach (ICD-10-PCS; principal; 2020-06-06)
PROC: 0HQ7XZZ Repair Abdomen Skin, External Approach (ICD-10-PCS; 2020-06-08)
DX: K21.9 Gastro-esophageal reflux disease without esophagitis (principal); K31.1 Adult hypertrophic pyloric stenosis; H54.7 Unspecified visual loss; J45.909 Unspecified asthma, uncomplicated; K59.09 Other constipation; K52.9 Noninfective gastroenteritis and colitis, unspecified; K44.9 Diaphragmatic hernia without obstruction or gangrene; M19.90 Unspecified osteoarthritis, unspecified site; G89.29 Other chronic pain; M54.9 Dorsalgia, unspecified; M54.2 Cervicalgia; F41.9 Anxiety disorder, unspecified; F32.9 Major depressive disorder, single episode, unspecified; F43.10 Post-traumatic stress disorder, unspecified; D64.9 Anemia, unspecified; Z88.6 Allergy status to analgesic agent; Z87.442 Personal history of urinary calculi; Z91.048 Other nonmedicinal substance allergy status; Z91.018 Allergy to other foods; Z86.010 Personal history of colon polyps; Z87.11 Personal history of peptic ulcer disease; Z88.2 Allergy status to sulfonamides; Z91.09 Other allergy status, other than to drugs and biological substances; Z79.52 Long term (current) use of systemic steroids; Z79.899 Other long term (current) drug therapy; Z90.89 Acquired absence of other organs; Z90.49 Acquired absence of other specified parts of digestive tract; Z98.51 Tubal ligation status; Z20.822 Contact with and (suspected) exposure to COVID-19
CPT/HCPCS: 0241U; 36415; 51701; 71045; 71045-26; 74018; 74018-26; 74019; 74019-26; 74177; 74240; 74240-26; 80053; 82009; 83036; 83605; 83690; 83735; 83880; 84100; 85025; 85027; 86140; 88305; 88307; 88342; 94640; 94762; 96374; 96375; 96376; 99231; 99285; 99285-25; A9270-GY; C9113; J0171; J0330; J0694; J1100; J1170; J1200; J1642; J1885; J1940; J2060; J2185; J2250; J2270; J2405; J2550; J2704; J2710; J2765; J2795; J3010; J3410; J3411; J3420; J3475; J3480; J3490; J7030; J7050; J7120; J7121; Q9967

== ENCOUNTER 2020-06-18 10:14 | Inpatient (IN) | payer MEDICAID ==
[2020-06-18] MEDS ORDERED: Iopamidol 612 MG/ML 500 ML Multipack Bottle IV ONE (10:24)
[2020-06-18] MEDS ORDERED: Sodium Chloride 0.9% 10 ML Syringe FLUSH ONE (10:24)
[2020-06-18] MEDS ORDERED: Dextrose 5%-Lactated Ringers 1,000 ML IV SCH (11:15)
[2020-06-18] MEDS ORDERED: Pantoprazole 40 MG in Sodium Chloride 0.9% 100 ML IV SCH (11:15)
[2020-06-18] MEDS: Ondansetron 4 MG/2 ML SDV IVPUSH PRN ×2 (11:19→19:22)
[2020-06-18] MEDS: Pantoprazole 40 MG Vial IV SCH ×2 (11:19→23:28)
[2020-06-18] MEDS ORDERED: MVI, Adult with Vitamin K 10 ML, Zinc/Copper/Manganese/Selenium 1 ML, Thiamine 200 MG i... IV ONE ×4 (12:30)
--- NOTE | 2020-06-18 13:08 | CT ---
Abdomen Pelvis w Cont CLINICAL HISTORY: Abdominal pain, vomiting, history of gastrectomy COMPARISON: 06/04/2020. TECHNIQUE: Transverse scans were obtained from the base of the lungs to the pubic symphysis following oral contrast and IV infusion of contrast.Auto dosage reduction and iterative reconstructiontechniques employed. FINDINGS: The lung bases are clear. No free air is identified. Patient has undergone previous gastric surgery with a Kiki procedure and a partial resection.. The stomach is moderately distended with an air-fluid level . The gastric and small bowel mucosa distal to the anastomosis is moderately thickened. This likely causes partial obstruction. There is some mild generalized small bowel distention which is nonspecific. The liver shows no mass or biliary dilatation. The gallbladder has been removed. The spleen has a normal size and shape. The pancreas shows no mass or inflammatory change. The adrenal glands appear normal bilaterally . The kidneys show no mass, stones or hydronephrosis. The ureters have a normal course and caliber. Bladder has a normal contour. Uterus has normal appearance. Abdominal pelvic fat planes and low pelvic side sheth are well demarcated. The appendix is not definitively identified. The aorta has normal contour. There is no suspicious retroperitoneal adenopathy. IMPRESSION: Previous Kiki procedure and partial gastrectomy Moderate distention of the stomach suggesting outlet obstruction Thickening of the distal gastric and proximal small bowel mucosal.
--- NOTE | 2020-06-18 13:15 | CR ---
Chest 1V Frontal CLINICAL HISTORY: NG tube placement FINDINGS: There is an NG tube in the mid stomach. Lungs are clear. Heart and pulmonary vascularity are normal IMPRESSION: NG tube in mid stomach. Lungs are clear
[2020-06-18] MEDS ORDERED: Dextrose 5%-Lact Ringers w/KCl 1,000 ML IV SCH (14:15)
[2020-06-18] MEDS ORDERED: LORazepam 2 MG/ML SDV IV PRN (14:17)
[2020-06-18] MEDS ORDERED: Cyclobenzaprine 10 MG Tab PO PRN (14:18)
[2020-06-18] MEDS ORDERED: Morphine 2 MG/ML SYRINGE IV PRN (14:59)
[2020-06-18] MEDS ORDERED: Levalbuterol HCl 1.25 MG/3 ML Neb INH PRN (15:20)
[2020-06-18] MEDS ORDERED: Levalbuterol Tartrate HFA 15 GM Inhaler INH PRN (15:21)
[2020-06-18 15:25] LABS: CORONAVIRUS COVID-19 NAA NEGATIVE (NEGATIVE)
[2020-06-18] MEDS: Montelukast 10 MG Tab PO SCH ×2 (19:22→20:58)
[2020-06-19] MEDS ORDERED: Midazolam 1 MG/ML 2 ML SDV ONE (07:04)
[2020-06-19] MEDS ORDERED: fentaNYL 100 MCG/2 ML SDV ONE (07:04)
[2020-06-19] MEDS ORDERED: Propofol 200 MG/20 ML SDV ONE (07:04)
[2020-06-19] MEDS ORDERED: Glycopyrrolate 0.2 MG/ML 2 ML SDV IV ONE (07:30)
[2020-06-19] MEDS ORDERED: Pantoprazole 40 MG Vial IVPUSH ONE (07:35)
[2020-06-19] MEDS ORDERED: Loratadine 10 MG Tab.DIS PO SCH (09:00)
[2020-06-19] MEDS ORDERED: Citalopram 20 MG Tab PO SCH (09:00)
[2020-06-19 10:49] VITALS: BP 120/77; PULSE 99
--- NOTE | 2020-06-21 12:09 | OR ---
DATE OF PROCEDURE: 06/19/2020 SURGEON: Prince Matias MD PREOPERATIVE DIAGNOSIS: Gastric outlet obstruction. POSTOPERATIVE DIAGNOSES: 1. Resolving gastric outlet obstruction with edema at the gastrojejunostomy, but otherwise wide patency of the anastomosis. 2. Scattered ulceration within proximal Jeffery limb. OPERATIVE PROCEDURE: Upper GI endoscopy. ANESTHESIA: IV sedation. INDICATION FOR PROCEDURE: The patient was admitted overnight with gastric outlet obstruction, status post recent distal gastrectomy for gastric outlet obstruction and she had undergone some dietary missteps and was eating some solid food when she was supposed to remain on liquid diet and came in with markedly distended stomach. Nasogastric tube was placed and overnight she felt somewhat better. Plan is to proceed with upper GI endoscopy for evaluation with dilation as indicated. Potential risks including bleeding and perforation were discussed, and the patient wishes to proceed. DETAILS OF PROCEDURE: The patient was taken to the operating room, placed in a left lateral decubitus position. IV sedation was administered. Nasogastric tube was then removed. Upper GI endoscope was passed orally through the esophagus into the stomach and then from there through the gastrojejunostomy roughly 20 cm into the Jeffery limb. Findings included adequately decompressed stomach at this point. There was some scattered erosions within the more distal stomach. The gastrojejunostomy was widely patent although edematous. Within the proximal Jeffery limb, there were some scattered ulcers covered with some black exudate. At this point, no blood or bleeding was seen, and at that point the scope was then withdrawn and the procedure concluded. The patient was taken to the recovery room in satisfactory condition. Prince Matias MD /[id number]
--- NOTE | 2020-06-21 12:30 | DISCH ---
FINAL DIAGNOSIS: Gastric outlet obstruction, status post recent antrectomy with Jeffery-en-Y gastrojejunostomy. SECONDARY DIAGNOSES: 1. Asthma. 2. Anxiety. 3. History of gastroesophageal reflux disease. PROCEDURE: Operative procedure done on 06/19, upper gastrointestinal endoscopy. SUMMARY: This is a 55-year-old recently status post distal gastrectomy with Jeffery-en-Y reconstruction for persistent gastric outlet obstruction. She had been doing well up until 48 hours ago when she advanced her diet to include items such as mangoes and such, although she had been instructed to avoid taking full liquids through that period. She came in with marked distention of the abdomen. CT scan was obtained, which showed markedly distended remaining stomach. A nasogastric tube was placed with a large amount of air and some fluid being recurrent. An upper GI endoscopy was then performed on 06/19, this showed edematous but otherwise wide open gastrojejunostomy. There was some ulceration within the proximal Jeffery limb. Plan will be to have the patient remain on Protonix 40 mg b.i.d. she will be given extra dose of Protonix IV in the recovery room. She will be started on a full liquid diet. If she tolerates that, she can go home later today. She will be instructed to stay on the full liquid diet for at least 2 weeks, and otherwise continue with home medications and follow up with Dr. Matias at [facility] this coming 06/23/2020, and make sure that she is doing okay. /[id number]
== END 2020-06-19 10:40 | disposition home or self-care (01) | DRG 394 ==
LOC: JP.ACU 10:14 → JP.CT 10:14 → JP.MS 13:00
PROVIDERS: ADMIT Surgery; ATTEND Surgery
PROC: 0DJ08ZZ Inspection of Upper Intestinal Tract, Via Natural or Artificial Opening Endoscopic (ICD-10-PCS; principal; 2020-06-19)
DX: K95.89 Other complications of other bariatric procedure (principal); K31.1 Adult hypertrophic pyloric stenosis; Z90.3 Acquired absence of stomach [part of]; Z20.822 Contact with and (suspected) exposure to COVID-19; J45.909 Unspecified asthma, uncomplicated; F41.9 Anxiety disorder, unspecified; Z87.19 Personal history of other diseases of the digestive system
CPT/HCPCS: 0241U; 36415; 71045; 71045-26; 74177; 74177-26; 80053; 83735; 84100; 85027; A9270-GY; C9113; J2060; J2250; J2405; J2704; J3010; J3411; J3480; J3490; J7120; J7121; Q9967

== ENCOUNTER 2020-07-14 11:50 | Emergency (ER) | payer MEDICAID ==
[2020-07-14] MEDS ORDERED: HYDROmorphone 0.5 MG/0.5 ML Syringe IVPUSH ONE (13:54)
[2020-07-14] MEDS ORDERED: Ondansetron 4 MG/2 ML SDV IVPUSH ONE ×2 (13:54→15:51)
[2020-07-14] MEDS ORDERED: Lactated Ringers 1,000 ML IV SCH (14:00)
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
[2020-07-14 15:09] LABS: CORONAVIRUS COVID-19 NAA NEGATIVE (NEGATIVE)
[2020-07-14 15:53] VITALS: BP 131/88; PULSE 94
== END 2020-07-14 16:14 | disposition home or self-care (01) ==
LOC: JP.ED 11:50
DX: E86.0 Dehydration (principal); R11.2 Nausea with vomiting, unspecified; K21.9 Gastro-esophageal reflux disease without esophagitis; Z79.899 Other long term (current) drug therapy; Z91.09 Other allergy status, other than to drugs and biological substances; Z20.822 Contact with and (suspected) exposure to COVID-19; Z90.49 Acquired absence of other specified parts of digestive tract; Z88.2 Allergy status to sulfonamides; Z88.8 Allergy status to other drugs, medicaments and biological substances; Z91.048 Other nonmedicinal substance allergy status
CPT/HCPCS: 0241U; 36415; 80048; 81001; 83605; 85027; 86140; 96374; 96375; 96376; 99284; J1170; J2405; J7120

== ENCOUNTER 2020-07-15 05:52 | Day surgery (SDC) | payer MEDICAID ==
[2020-07-15] MEDS ORDERED: Cyanocobalamin (Vitamin B12) 1,000 MCG/ML SDV IM ONE (06:30)
[2020-07-15] MEDS ORDERED: Lactated Ringers 1,000 ML IV ONE (06:30)
[2020-07-15] MEDS ORDERED: fentaNYL 100 MCG/2 ML SDV ONE (07:05)
[2020-07-15] MEDS ORDERED: Propofol 200 MG/20 ML SDV ONE (07:05)
[2020-07-15] MEDS ORDERED: MVI, Adult with Vitamin K 10 ML, Thiamine 200 MG, Zinc/Copper/Manganese/Selenium 1 ML i... IV ONE ×4 (07:30)
[2020-07-15] MEDS ORDERED: Lidocaine 2% Viscous Solution 15 ML Cup PO PRN (09:33)
[2020-07-15 09:44] VITALS: BP 136/89; PULSE 83
[2020-07-15] MEDS ORDERED: Alum Hydrox/Mag Hydrox/Simeth 360 ML, Lidocaine 2% 60 ML PO PRN ×2 (11:00)
--- NOTE | 2020-07-19 18:32 | OR ---
DATE OF PROCEDURE: 07/15/2020 SURGEON: Prince Matias MD PREOPERATIVE DIAGNOSES: Persistent nausea, status post distal gastrectomy with Jeffery-en-Y gastrojejunostomy. POSTOPERATIVE DIAGNOSES: Extensive ulceration involving gastrojejunostomy and Jeffery limb distal to the gastrojejunostomy. OPERATIVE PROCEDURE: Upper gastrointestinal endoscopy. ANESTHESIA: IV sedation. INDICATIONS FOR PROCEDURE: A 55-year-old female status post a distal gastrectomy with Jfefery- en-Y reconstruction. She presents with ongoing problems with inability to maintain oral intake. She presently is on Protonix 40 mg b.i.d. Plan is to proceed with an upper GI endoscopy with biopsies and/or dilation as indicated along with removal of any potential foreign bodies. Potential risks including bleeding and perforation were discussed, and the patient wishes to proceed. DETAILS OF PROCEDURE: The patient was taken to the operating room and placed in the left lateral decubitus position. IV sedation was administered, after which the upper GI endoscope was passed orally through the length of the esophagus and into the stomach up to the level the findings were unremarkable. Within the stomach there was no retained food or fluid. There was beginning at the gastrojejunostomy ongoing ulceration present. The gastrojejunostomy itself was widely patent, i.e., there was no mechanical obstruction present. The ulceration then continued somewhat into the Jeffery limb for 5 to 6 cm. Photo documentation was obtained and at that point the scope was then withdrawn and the procedure then concluded. At this point, the patient would appear to have problems with refractory ulceration of the gastrojejunostomy and proximal Jeffery limb. This would imply continued abnormal gastric acid production. Since she is on b.i.d. Protonix, gastrin level would not be particularly valid. Recommendation at this point would be to proceed with a total gastrectomy with once again Jeffery-en-Y with reconstruction. This would likely allow the patient to eat fairly normal over time, although we would need to work quite a bit in terms of nutritional state in the first few weeks postoperatively. This was reviewed with the patient. She was somewhat hesitant to proceed in that direction and she will be seeking a Gastroenterology consultation over the next week. Otherwise, she is instructed to continue the proton pump inhibitor use and maintain likely a liquid diet with high protein content. Dietary consultation was obtained postprocedure and otherwise we will see the patient back in the clinic next Sunday to discuss the treatment of this issue. Prince Matias MD /[id number]
== END 2020-07-15 10:05 | disposition home or self-care (01) ==
LOC: JP.SDS 05:52
PROVIDERS: ATTEND Surgery
DX: K95.89 Other complications of other bariatric procedure (principal); K22.10 Ulcer of esophagus without bleeding; J45.909 Unspecified asthma, uncomplicated; Z88.2 Allergy status to sulfonamides; Z88.8 Allergy status to other drugs, medicaments and biological substances; Z91.09 Other allergy status, other than to drugs and biological substances; Z98.84 Bariatric surgery status
CPT/HCPCS: 36415; 43235; 83735; 84100; J1642; J2704; J3010; J3411; J3420; J7120

== ENCOUNTER 2020-07-16 11:14 | Emergency (ER) | payer MEDICAID ==
[2020-07-16 11:35] VITALS: BP 136/88; PULSE 103
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
[2020-07-16] MEDS ORDERED: MVI, Adult with Vitamin K 10 ML, Thiamine 100 MG, Folic Acid 1 MG, Magnesium Sulfate 3 ... IV SCH ×5 (12:15)
[2020-07-16] MEDS ORDERED: Acetaminophen/Codeine 300-30 MG Tab PO ONE (13:06)
[2020-07-16] MEDS ORDERED: Pantoprazole 40 MG Vial IVPUSH ONE (13:54)
== END 2020-07-16 14:48 | disposition home or self-care (01) ==
LOC: JP.ED 11:14
DX: K29.50 Unspecified chronic gastritis without bleeding (principal); J45.909 Unspecified asthma, uncomplicated; Z88.6 Allergy status to analgesic agent; Z91.018 Allergy to other foods; Z88.5 Allergy status to narcotic agent; Z91.048 Other nonmedicinal substance allergy status; Z79.899 Other long term (current) drug therapy
CPT/HCPCS: 36415; 80048; 82150; 83690; 85025; 96365; 96366; 96375; 99284; A9270; C9113; J3411; J3475; J7030; J3490

== ENCOUNTER 2020-07-22 12:47 | Inpatient (IN) | payer MEDICAID ==
[2020-07-22] MEDS ORDERED: Sodium Chloride 0.9% 10 ML Syringe FLUSH PRN ×3 (12:53→16:16)
[2020-07-22] MEDS ORDERED: NS + KCl 20mEq/L 1,000 ML IV SCH (13:15)
[2020-07-22] MEDS ORDERED: Prochlorperazine 10 MG/2 ML SDV IVPUSH ONE (13:23)
[2020-07-22] MEDS ORDERED: diphenhydrAMINE 50 MG/ML SDV IVPUSH ONE (13:23)
[2020-07-22] MEDS ORDERED: Pantoprazole 40 MG Vial IVPUSH STA (13:27)
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
[2020-07-22] MEDS ORDERED: Potassium Chloride 20 MEQ in Premix Bag 1 BAG IV ONE (13:37)
[2020-07-22] MEDS ORDERED: Potassium Chloride 20 MEQ Tab.ER PO ONE (13:37)
[2020-07-22] MEDS ORDERED: oxyCODONE 5 MG Tab PO PRN (15:22)
[2020-07-22] MEDS ORDERED: LEVALBUTEROL HCL 1.25 MG/3 ML INH PRN (15:22)
[2020-07-22] MEDS ORDERED: Cyclobenzaprine 10 MG Tab PO PRN (15:22)
[2020-07-22] MEDS ORDERED: Acetaminophen 325 MG Tab PO PRN (15:40)
[2020-07-22] MEDS ORDERED: Pantoprazole 40 MG Vial IVPUSH SCH (15:45)
[2020-07-22] MEDS ORDERED: hydrALAZINE 20 MG/ML SDV IVPUSH PRN (15:46)
--- NOTE | 2020-07-22 15:55 | PCM.SN.2 ---
- Free Text/Narrative Note: START OF DOCTOR [facility] HISTORY AND PHYSICAL / CONSULTATION NOTE Chief Complaint: "I am dehydrated" History of Present Illness: The patient is an uncooperative 54-year-old female who presents she complained of "I am dehydrated". The patient is not forthcoming with details and mumbles whenever I ask her questions but is able to clearly verbalize answers when requested to do so. She complains of "stomach pain and vomiting.". Upon further questioning she admits to rigors, nausea, vomiting, cough which is chronic which she attributes to her chronic bronchitis and productive of clear sputum. She denies diarrhea, melena, hematochezia, steatorrhea. She reports to be compliant with her medication intake. Of note patient had recent EGD on July 15, 2020 which demonstrated extensive ulcer ration of the gastrojejunostomy and rolled limb distal to the gastrojejunostomy. She presents for further evaluation Surgical History: Numerous endoscopies, cholecystectomy, hiatal herniorrhaphy with mesh placement, bilateral breast implants, tonsillectomy, partial gastrectomy, tubal ligation, Kiki fundoplication, hemorrhoidectomy Family History: Cholecystectomy, tonsillectomy, tubal ligation, Kiki fundoplication, hemorrhoidectomy Social History: Tobacco: Denies Alcohol: Denies Caffeine: Denies Drugs: Never Allergies: Medication allergies: Sulfa, aspirin, Dilaudid. Environmental allergens: Cat dander, chocolate flavor, mold, pollen extract, dust Code Status: Full Pertinent Laboratory Results / Pertinent Radiology Results / Pertinent Diagnostic Results / Pertinent Vital Signs: Blood pressure 152/86, pulse 103, respiration 18, temperature 97 degrees, 90% room air, potassium 3, platelet count 454,000 Physical Examination: General: -Alert -Mild distress -No dyspnea -No tachypnea Head: -Atraumatic -Normocephalic Eyes: -Pupils equally round and reactive to light and accommodation -Extraocular muscles intact Neurological: -Cranial nerves II-XII intact Neck: -No jugular venous distention -No thyromegaly -No cervical lymphadenopathy Heart: -IRegular rate -Regular rhythm -No murmurs -No gallops -No rubs Lungs: -No wheeze -No rhonchi -No rales Abdomen: -Normal bowel sounds in all four quadrants -No rebound -No guarding -No te diffuse tenderness present Extremities: -2/4 pulse in all four extremities -No clubbing -No cyanosis -No edema -No calf tenderness present bilaterally -Negative Homans sign bilaterally Musculoskeletal: -5/5 bilateral upper extremity strength -5/5 bilateral lower extremity strength -Sensorium of bilateral upper extremities are equal and intact -Sensorium of bilateral lower extremities are equal and intact Additional Details / Additional Findings / Exceptions / Miscellaneous: Assessment / Plan: Abdominal pain. Likely secondary to extensive ulceration as demonstrated on EGD from July 03-2020. Protonix 40 mg IV twice daily Po 6 eight 1 g p.o. [address] of the abdomen pelvis angiogram with IV contrast. Check lipase, urinalysis, gastrin level Acute renal insufficiency. Will monitor creatinine level intermittently. IV normal saline +20 M EQ KCl at 75 mils per hour Hypokalemia. Will monitor potassium levels intermittently and supplement as necessary. IV normal saline +20 EQ KCl at 75 mL's per hour History of gastric outlet obstruction Asthma. Singulair 10 mg p.o. nightly Anxiety with history of panic attack Constipation Chronic pain Seasonal allergies. Claritin 10 mg p.o. daily Muscle spasm Depression. Celexa 40 mg p.o. daily GERD/history of gastritis/peptic ulcer disease. Sucraid 1 g p.o. 4 times daily plus Protonix 40 mg IV twice daily Thrombocytosis. Will monitor platelet count intermittently History nephrolithiasis Arthritis PTSD DVT prophylaxis. Lovenox 40 mg subcutaneously daily Disposition: END OF DOCTOR EMAMIS HISTORY AND PHYSICAL / CONSULTATION NOTE
[2020-07-22] MEDS ORDERED: Levalbuterol HCl 1.25 MG/3 ML Neb INH PRN (15:56)
[2020-07-22] MEDS ORDERED: Sodium Chloride 0.9% 100 ML IV ONE (16:16)
[2020-07-22] MEDS ORDERED: Iopamidol 755 Mg/ML 100 ML Bottle IV SCH (16:30)
--- NOTE | 2020-07-22 17:16 | CRLCT ---
Final Report: INDICATION: Abdominal pain. Rule out mesenteric ischemia. COMPARISON: CT of the abdomen and pelvis with contrast from 06/18/2020 TECHNIQUE: Initial examination is a noncontrast CT of the abdomen and pelvis performed with spiral technique 2 obtained 3 millimeter thick axial sections. CT angiography of the abdomen and pelvis was performed with the uneventful intravenous administration of 100 cc of Omnipaque 350 while 1.5 mm thick axial arterial phase and 3.0 mm thick axial venous phase sections were obtained from the lung bases through the pubic symphysis. Please note that all CT scans at this facility use dose modulation, iterative reconstruction, and/or weight-based dosing when appropriate to reduce radiation dose to as low as reasonably achievable. FINDINGS: : In the abdomen, the liver, spleen, pancreas, and adrenals are normal in appearance. The kidneys are normal in appearance. Clips are again seen in the gall bladder fossa from cholecystectomy. There is no sign of biliary ductal dilatation. The abdominal aorta is normal in caliber with no sign of dilatation. The celiac axis, SMA, solitary bilateral renal arteries, and JAKOB are widely patent. The venous phase images demonstrates widely patent portal venous drainage, as well as widely patent mesenteric veins. There is no sign of retroperitoneal mass or adenopathy. Again seen are changes of a Kiki fundoplication with a rounded masslike density in the gastric cardia, with no sign of recurrence of a hiatal hernia. Again seen are changes of partial gastrectomy with moderate distention of the gastric remnant, suggesting partial gastric outlet obstruction at the gastrojejunostomy. The previously seen mucosal thickening of the wall of the jejunum adjacent to the gastrojejunostomy is improved and is now mild. Again seen are multiple lines of surgical rita from small bowel anastomosis in the central lower abdomen and upper pelvis, previously seen in the left lower abdomen and upper pelvis. The rest of the loops of small bowel and colon in the abdomen are normal in appearance. In the pelvis, the appendix is normal in appearance with no sign of inflammatory process. The loops of small bowel and colon in the pelvis are normal in appearance. The uterus and adnexal regions are normal in appearance. The urinary bladder is normal in appearance. There is stable moderate left periuterine venous dilatation draining into the left ovarian vein, findings of moderate pelvic congestion syndrome. There is no sign of pelvic or inguinal mass or adenopathy. There is no sign of free fluid or free air in the abdomen or pelvis. The lung bases are clear. There is stable grade 1 anterior subluxation of L4 on L5 with mild L4-5 disc degenerative disease. IMPRESSION: Normal CT angiogram of the abdominal aorta. Nothing seen to suggest mesenteric ischemia with patent mesenteric arteries and veins. CT of the abdomen shows continued moderate dilatation of the stomach resulting from a persistent stenosis at the gastrojejunostomy, findings of persistent partial gastric outlet obstruction. There is decreased mucosal edema at the area of the anastomosis compared to the previous study, with mild mucosal thickening of the jejunum adjacent to the anastomosis. Stable satisfactory changes of fundoplication. Stable satisfactory appearance status post cholecystectomy with no sign of biliary ductal dilatation. CT of the pelvis shows stable moderate left pelvic congestion syndrome. Please note that all CT scans at this facility use dose modulation, iterative reconstruction, and/or weight-based dosing when appropriate to reduce radiation dose to as low as reasonably achievable. Dictated by Mil Vazquez MD @ 07/22/2020 5:14:19 PM Signed by: Mil Vazquez MD @07/22/2020 5:14:19 PM (Electronic Signature) MTDD
[2020-07-22] MEDS: LORazepam 1 MG Tab PO PRN (17:25)
[2020-07-22] MEDS: Ondansetron 4 MG/2 ML SDV IV PRN ×2 (17:26→22:01)
[2020-07-22] MEDS: Sucralfate Suspension 1 GM/10 ML Cup PO SCH ×2 (17:30→21:57)
[2020-07-22] MEDS: NS + KCl 20mEq/L 1,000 ML IV SCH (19:07)
[2020-07-22] MEDS ORDERED: Sodium Chloride 0.9% 1,000 ML IV ONE (20:53)
--- NOTE | 2020-07-22 20:59 | PCM.SN.2 ---
- Free Text/Narrative Note: time: 20:50 call from 2 [facility] concerns of Lactic acid increased from previous lab S: patient reports fatigue and chills O: vital signs 100.6-88-18 B/P 146/80 O2 sat 99% labs Lactic acid 3.3, 2.3, now 3.2 A: elevated lactic acid P: give Normal Saline 1 liter over two hours, then IV fluids at 125 ml/hr. repeat Lactic acid in 6 hours blood culture x2 are pending. continue present plan of care
[2020-07-22] MEDS ORDERED: Montelukast 10 MG Tab PO SCH (21:00)
[2020-07-23] MEDS: Pantoprazole 40 MG Vial IVPUSH SCH ×2 (02:05→14:30)
[2020-07-23] MEDS: Ondansetron 4 MG/2 ML SDV IV PRN (03:46)
[2020-07-23] MEDS: Sucralfate Suspension 1 GM/10 ML Cup PO SCH ×4 (03:46→16:06)
[2020-07-23] MEDS: LORazepam 1 MG Tab PO PRN (03:55)
[2020-07-23] MEDS: NS + KCl 20mEq/L 1,000 ML IV SCH (05:58)
[2020-07-23] MEDS ORDERED: Levofloxacin 500 MG Tab PO SCH (07:30)
--- NOTE | 2020-07-23 07:35 | PCM.SN.2 ---
- Free Text/Narrative Note: START OF DOCTOR RENATO PROGRESS NOTE Subjective: The patient Concepcion that her abdominal pain has resolved. She states that she has ongoing occasional nausea however it has improved overall. Overnight she complains of fever. She denies rigors, vomiting, cough, wheeze, dyspnea. I explained to the patient her current medical condition and plan of care and have answered all of her questions Objective: General: -Alert -No acute distress -No dyspnea -No tachypnea Heart: -Regular rate -Regular rhythm -No murmurs -No gallops -No rubs Lungs: -No wheeze -No rhonchi -No rales Abdomen: -Normal bowel sounds in all four quadrants -No rebound -No guarding -No tenderness Extremities: -2/4 pulse in all four extremities -No clubbing -No cyanosis -No edema Additional Details / Additional Findings / Exceptions / Miscellaneous: Pertinent Laboratory Results / Pertinent Radiology Results / Pertinent Diagnostic Results / Pertinent Vital Signs: Vital signs stable at the present time however temperature max overnight 100.7 degrees, hemoglobin 9.8, platelet count 426,000 Assessment / Plan: Abdominal pain. Likely secondary to extensive ulceration as demonstrated on EGD from July 03-2020. Protonix 40 mg IV twice daily Po 6 eight 1 g p.o. [address] of the abdomen pelvis angiogram with IV contrast. Check lipase, urinalysis, gastrin level Fever. Urinalysis unremarkable. Check chest x-ray2 view, blood culture x2, C OVID-19. Empiric treatment with Levaquin 500 mg p.o. daily Acute renal insufficiency. Will monitor creatinine level intermittently Anemia. Will monitor hemoglobin level intermittently. Check serum ferritin, iron panel, fecal occult blood Hypokalemia. Will monitor potassium levels intermittently and supplement as necessary History of gastric outlet obstruction Asthma. Singulair 10 mg p.o. nightly Anxiety with history of panic attack Constipation Chronic pain Seasonal allergies. Claritin 10 mg p.o. daily Muscle spasm Depression. Celexa 40 mg p.o. daily GERD/history of gastritis/peptic ulcer disease. Sucraid 1 g p.o. 4 times daily plus Protonix 40 mg IV twice daily Thrombocytosis. Will monitor platelet count intermittently History nephrolithiasis Arthritis PTSD DVT prophylaxis. Lovenox 40 mg subcutaneously daily Disposition: If the patient's nausea remains adequately controlled and she remains afebrile, the patient will be okay for discharge on this day of July 23, 2020 prior to discharge, I will review the report for her CT of the abdomen and pelvis. END OF DOCTOR RENATO PROGRESS NOTE
[2020-07-23] MEDS ORDERED: Citalopram 20 MG Tab PO SCH (09:00)
[2020-07-23] MEDS ORDERED: Loratadine 10 MG Tab PO SCH (09:00)
--- NOTE | 2020-07-23 09:11 | CR ---
CHEST: 2 view CLINICAL HISTORY:Fever COMPARISON:06/18/2020 FINDINGS: Lungs are emphysematous. The heart size, pulmonary vascularity and hilar structures are normal. No infiltrate effusion or pneumothorax is seen. IMPRESSION: No acute cardiopulmonary process Emphysematous changes .
[2020-07-23] MEDS: Enoxaparin 40 MG/0.4 ML Syringe SUBCUT SCH ×2 (09:23→09:24)
--- NOTE | 2020-07-23 13:55 | PCM.SN.2 ---
- Free Text/Narrative Note: START OF DOCTOR EMAMIS DISCHARGE SUMMARY Date of Admission: July 22, 2020 Date of Discharge: 1:53 PM on July 23, 2020 Primary Diagnosis: Abdominal pain, likely secondary to extensive ulceration as demonstrated on EGD performed on July 03, 2020 Secondary Diagnosis: Acute renal insufficiency, resolved Hypokalemia, status post treatment History of gastric outlet obstruction Asthma Anxiety with history of panic attack Constipation Chronic pain Seasonal allergies Muscle spasm Depression GERD/history of gastritis/peptic ulcer disease Thrombocytosis History of nephrolithiasis Arthritis PTSD Medical noncompliance Consultations: None Disposition: The patient will be advised to follow-up with gastroenterology within 2 weeks or as directed for monitoring for her history of gastric ulcers as well as her history of gastric outlet obstruction Discharge Medications: Levaquin 500 mg p.o. daily. Quantity 6. 0 refills Super fate 1 g p.o. 4 times daily Promethazine 25 mg per rectum every 6 hours as needed nausea/vomiting MiraLAX 17 g p.o. twice daily as needed constipation Protonix 40 mg p.o. twice daily Zofran ODT 8 mg p.o. every 6 hours as needed nausea/vomiting Epinephrine pen as directed Colace 200 mg p.o. daily Vitamin D 1000 IU p.o. daily Vitamin C 100 mg p.o. daily Singular 10 mg p.o. nightly Claritin 10 mg p.o. daily Xopenex 1.25 mg per 3 mL: 1 inhalation every 6 hours as needed shortness of breath or wheeze Celexa 40 mg p.o. daily END OF DOCTOR EMAMIS DISCHARGE SUMMARY
[2020-07-23 14:37] VITALS: BP 135/90; PULSE 83
--- NOTE | 2020-07-23 15:59 | PCM.SN.2 ---
- Free Text/Narrative Note: START OF DOCTOR EMAMIS DISCHARGE SUMMARY Date of Admission: July 22, 2020 Date of Discharge: 1:53 PM on July 23, 2020 Primary Diagnosis: Abdominal pain, likely secondary to extensive ulceration as demonstrated on EGD performed on July 03, 2020 Secondary Diagnosis: Acute renal insufficiency, resolved Anemia with borderline iron deficiency Hypokalemia, status post treatment History of gastric outlet obstruction Asthma Anxiety with history of panic attack Constipation Chronic pain Seasonal allergies Muscle spasm Depression GERD/history of gastritis/peptic ulcer disease Thrombocytosis History of nephrolithiasis Arthritis PTSD Medical noncompliance Consultations: None Disposition: The patient will be advised to follow-up with gastroenterology within 2 weeks or as directed for monitoring for her history of gastric ulcers as well as her history of gastric outlet obstruction Discharge Medications: Levaquin 500 mg p.o. daily. Quantity 6. 0 refills Super fate 1 g p.o. 4 times daily Promethazine 25 mg per rectum every 6 hours as needed nausea/vomiting MiraLAX 17 g p.o. twice daily as needed constipation Protonix 40 mg p.o. twice daily Zofran ODT 8 mg p.o. every 6 hours as needed nausea/vomiting Epinephrine pen as directed Colace 200 mg p.o. daily Vitamin D 1000 IU p.o. daily Vitamin C 100 mg p.o. daily Singular 10 mg p.o. nightly Claritin 10 mg p.o. daily Xopenex 1.25 mg per 3 mL: 1 inhalation every 6 hours as needed shortness of b reath or wheeze Celexa 40 mg p.o. daily Ferrous sulfate 325mg PO BID END OF DOCTOR EMAMIS DISCHARGE SUMMARY
== END 2020-07-23 16:10 | disposition home or self-care (01) | DRG 384 ==
LOC: JP.ED 12:47 → JP.MS 15:40
PROVIDERS: ADMIT Internal Medicine; ATTEND Internal Medicine
DX: K25.9 Gastric ulcer, unspecified as acute or chronic, without hemorrhage or perforation (principal); N28.9 Disorder of kidney and ureter, unspecified; E87.6 Hypokalemia; D50.9 Iron deficiency anemia, unspecified; J45.909 Unspecified asthma, uncomplicated; F41.9 Anxiety disorder, unspecified; G89.29 Other chronic pain; K59.00 Constipation, unspecified; F32.9 Major depressive disorder, single episode, unspecified; M62.838 Other muscle spasm; K21.9 Gastro-esophageal reflux disease without esophagitis; D47.3 Essential (hemorrhagic) thrombocythemia; M19.90 Unspecified osteoarthritis, unspecified site; Z87.442 Personal history of urinary calculi; F43.12 Post-traumatic stress disorder, chronic; Z91.14 Patient's other noncompliance with medication regimen; Z90.49 Acquired absence of other specified parts of digestive tract; Z98.51 Tubal ligation status; Z98.890 Other specified postprocedural states; Z90.89 Acquired absence of other organs; Z88.2 Allergy status to sulfonamides; Z88.8 Allergy status to other drugs, medicaments and biological substances
CPT/HCPCS: 36415; 71046; 71046-26; 74174; 80048; 80053; 80305-QW; 81001; 82728; 82941; 83550; 83605; 83690; 83735; 85025; 85027; 87040; 96365; 96366; 96375; 99222; 99238; 99285-25; A9270-GY; C9113; J0780; J1200; J1650; J2405; J3480; J7030; Q9967

== ENCOUNTER 2020-09-06 10:38 | Emergency (ER) | payer MEDICAID ==
[2020-09-06] MEDS ORDERED: LORazepam 2 MG/ML SDV IVPUSH ONE (13:33)
[2020-09-06] MEDS ORDERED: Sodium Chloride 0.9% 10 ML Syringe FLUSH PRN (13:34)
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
[2020-09-06] MEDS ORDERED: Lactated Ringers 1,000 ML IV SCH (13:45)
[2020-09-06 13:54] VITALS: PULSE 70
--- NOTE | 2020-09-06 14:23 | CR ---
CHEST: Portable 09/06/2020 at 1:55 PM CLINICAL HISTORY:Chills and fever COMPARISON:07/23/2020 FINDINGS: The heart size, pulmonary vascularity and hilar structures are normal. No infiltrate effusion or pneumothorax is seen. Lungs are emphysematous IMPRESSION: No acute cardiopulmonary process. Emphysematous changes
[2020-09-06] MEDS ORDERED: Potassium Chloride 20 MEQ in Premix Bag 1 BAG IV ONE (16:18)
[2020-09-06] MEDS ORDERED: Potassium Chloride 20 MEQ Tab.ER PO ONE (16:18)
[2020-09-06 16:43] VITALS: BP 136/84
== END 2020-09-06 18:54 | disposition home or self-care (01) ==
LOC: JP.ED 10:38
DX: R11.2 Nausea with vomiting, unspecified (principal); R74.01 Elevation of levels of liver transaminase levels; J45.909 Unspecified asthma, uncomplicated; Z88.6 Allergy status to analgesic agent; Z91.048 Other nonmedicinal substance allergy status; Z91.018 Allergy to other foods; Z88.5 Allergy status to narcotic agent; Z88.2 Allergy status to sulfonamides; Z79.899 Other long term (current) drug therapy
CPT/HCPCS: 36415; 71045; 80053; 80305; 81001; 83605; 83690; 84484; 85025; 96365; 96366; 96375; 99284; A9270; J2060; J3480; J7120

== ENCOUNTER 2020-10-27 08:40 | Emergency (ER) | payer MEDICAID ==
[2020-10-27 10:45] VITALS: BP 142/87; PULSE 79
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
== END 2020-10-27 14:20 | disposition home or self-care (01) ==
LOC: JP.ED 08:40
DX: R11.2 Nausea with vomiting, unspecified (principal); J45.909 Unspecified asthma, uncomplicated; K21.9 Gastro-esophageal reflux disease without esophagitis; M19.90 Unspecified osteoarthritis, unspecified site; D64.9 Anemia, unspecified; Z91.048 Other nonmedicinal substance allergy status; Z88.2 Allergy status to sulfonamides; Z88.6 Allergy status to analgesic agent; Z91.018 Allergy to other foods; Z88.5 Allergy status to narcotic agent; Z79.899 Other long term (current) drug therapy
CPT/HCPCS: 36415; 80053; 81001; 85027; 96374; 99284; J1790

== ENCOUNTER 2021-02-17 14:30 | Emergency (ER) | payer MEDICAID ==
[2021-02-17 14:53] VITALS: BP 127/76; PULSE 90
[2021-02-17] MEDS ORDERED: Ondansetron 4 MG/2 ML SDV IVPUSH ONE (15:22)
[2021-02-17] MEDS ORDERED: Sodium Chloride 0.9% 10 ML Syringe FLUSH PRN (15:22)
[2021-02-17] MEDS ORDERED: fentaNYL 100 MCG/2 ML SDV IVPUSH ONE (15:22)
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
[2021-02-17] MEDS ORDERED: Lactated Ringers 1,000 ML IV SCH (15:30)
[2021-02-17 16:42] LABS: CORONAVIRUS COVID-19 NAA NEGATIVE (NEGATIVE)
[2021-02-17] MEDS ORDERED: LORazepam 2 MG/ML SDV IVPUSH ONE (16:42)
== END 2021-02-17 17:55 | disposition home or self-care (01) ==
LOC: JP.ED 14:30
DX: R11.2 Nausea with vomiting, unspecified (principal); T40.715A Adverse effect of cannabis, initial encounter; Z88.5 Allergy status to narcotic agent; Z91.09 Other allergy status, other than to drugs and biological substances; Z91.018 Allergy to other foods; Z88.8 Allergy status to other drugs, medicaments and biological substances; Z79.899 Other long term (current) drug therapy; Z20.822 Contact with and (suspected) exposure to COVID-19
CPT/HCPCS: 0241U; 36415; 80053; 80305; 81001; 83605; 83690; 84484; 85025; 96374; 96375; 99284; J2060; J2405; J3010; J7120

== ENCOUNTER 2021-07-19 15:51 | Emergency (ER) | payer MEDICAID ==
[2021-07-19] MEDS ORDERED: Sodium Chloride 0.9% 10 ML Syringe FLUSH PRN (17:21)
[2021-07-19] MEDS ORDERED: fentaNYL 100 MCG/2 ML SDV IVPUSH ONE (17:23)
[2021-07-19] MEDS ORDERED: Ondansetron 4 MG/2 ML SDV IVPUSH ONE (17:23)
[2021-07-19] MEDS ORDERED: Lactated Ringers 1,000 ML IV SCH (17:30)
[2021-07-19 18:01] LABS: TROPONIN I HIGH SENSITIVITY 5.3 pg/mL (<=60.3)
[2021-07-19 18:10] VITALS: BP 106/57; PULSE 81
[2021-07-19] MEDS ORDERED: Sodium Chloride 0.9% 75 ML IV SCH (18:15)
[2021-07-19] MEDS ORDERED: Iopamidol 755 Mg/ML 100 ML Bottle IV SCH (18:15)
[2021-07-19 18:28] LABS: CORONAVIRUS COVID-19 NAA NEGATIVE (NEGATIVE)
== END 2021-07-19 19:56 | disposition home or self-care (01) ==
LOC: JP.ED 15:51
DX: R10.13 Epigastric pain (principal); R11.2 Nausea with vomiting, unspecified; Z91.018 Allergy to other foods; Z91.09 Other allergy status, other than to drugs and biological substances; Z88.5 Allergy status to narcotic agent; Z88.2 Allergy status to sulfonamides; Z79.899 Other long term (current) drug therapy; Z98.84 Bariatric surgery status; Z20.822 Contact with and (suspected) exposure to COVID-19
CPT/HCPCS: 0241U; 36415; 74177; 80053; 80305-QW; 81001; 83605; 83690; 84484; 85025; 96374; 96375; 99283; 99284-25; J2405; J3010; J3490; J7120; Q9967

== ENCOUNTER 2021-09-09 18:31 | Emergency (ER) | payer MEDICAID ==
[2021-09-09 19:11] VITALS: BP 138/82; PULSE 84
[2021-09-09] MEDS ORDERED: Sodium Chloride 0.9% 10 ML Syringe FLUSH PRN (19:55)
[2021-09-09] MEDS ORDERED: Morphine 2 MG/ML SYRINGE IVPUSH ONE (19:55)
[2021-09-09] MEDS ORDERED: diphenhydrAMINE 50 MG/ML SDV IVPUSH ONE (19:56)
[2021-09-09] MEDS ORDERED: Prochlorperazine 10 MG in Sodium Chloride 0.9% 50 ML IV ONE (19:57)
[2021-09-09] MEDS ORDERED: Lactated Ringers 1,000 ML IV SCH (20:00)
[2021-09-09 20:18] LABS: ESTIMATED GFR 67 mL/min (>60)
[2021-09-09] MEDS ORDERED: Sodium Chloride 0.9% 75 ML IV SCH (20:30)
[2021-09-09] MEDS ORDERED: Iopamidol 612 MG/ML 100 ML Bottle IV SCH (20:30)
[2021-09-09] MEDS ORDERED: Pantoprazole 40 MG Vial IVPUSH ONE (21:37)
== END 2021-09-09 22:30 | disposition home or self-care (01) ==
LOC: JP.ED 18:31
DX: R11.2 Nausea with vomiting, unspecified (principal); R10.10 Upper abdominal pain, unspecified; G89.29 Other chronic pain; F41.9 Anxiety disorder, unspecified; F32.A Depression, unspecified; Z98.84 Bariatric surgery status; Z88.2 Allergy status to sulfonamides; Z91.048 Other nonmedicinal substance allergy status; Z88.6 Allergy status to analgesic agent; Z88.8 Allergy status to other drugs, medicaments and biological substances
CPT/HCPCS: 36415; 74177; 80053; 81001; 83605; 83690; 85025; 96361; 96365; 96375; 99284; C9113; J0780; J1200; J2270; J3490; J7120; Q9967

== ENCOUNTER 2021-11-06 13:20 | Emergency (ER) | payer MEDICAID ==
[2021-11-06] MEDS ORDERED: Sodium Chloride 0.9% 10 ML Syringe FLUSH PRN (14:24)
[2021-11-06] MEDS ORDERED: Ondansetron 4 MG/2 ML SDV IVPUSH PRN (14:25)
[2021-11-06] MEDS ORDERED: HYDROmorphone 0.5 MG/0.5 ML Syringe IVPUSH ONE (14:30)
[2021-11-06] MEDS ORDERED: Sodium Chloride 0.9% 1,000 ML IV SCH (14:45)
[2021-11-06] MEDS ORDERED: Iopamidol 612 MG/ML 100 ML Bottle IV PRN (14:58)
[2021-11-06] MEDS ORDERED: Sodium Chloride 0.9% 100 ML IV SCH (15:00)
[2021-11-06 16:09] VITALS: BP 112/69; PULSE 84
== END 2021-11-06 17:14 | disposition home or self-care (01) ==
LOC: JP.ED 13:20
DX: R10.9 Unspecified abdominal pain (principal); R11.2 Nausea with vomiting, unspecified; Z91.018 Allergy to other foods; Z88.8 Allergy status to other drugs, medicaments and biological substances; Z91.09 Other allergy status, other than to drugs and biological substances; Z88.5 Allergy status to narcotic agent; Z88.2 Allergy status to sulfonamides; Z91.048 Other nonmedicinal substance allergy status; Z79.899 Other long term (current) drug therapy
CPT/HCPCS: 36415; 74177; 80048; 85025; 96361; 96374; 96375; 99284; J1170; J2405; J3490; J7030

== ENCOUNTER 2021-11-12 10:48 | Emergency (ER) | payer MEDICAID ==
[2021-11-12] MEDS ORDERED: Sodium Chloride 0.9% 10 ML Syringe FLUSH PRN (11:53)
[2021-11-12] MEDS ORDERED: hydrOXYzine HCL 100 MG/2 ML SDV IM ONE (11:55)
[2021-11-12] MEDS ORDERED: Sodium Chloride 0.9% 1,000 ML IV SCH (12:00)
[2021-11-12] MEDS ORDERED: Pantoprazole 40 MG Vial IVPUSH SCH (12:00)
[2021-11-12 12:33] LABS: ESTIMATED GFR 54 mL/min (>60)
[2021-11-12] MEDS ORDERED: Lactated Ringers 1,000 ML IV SCH ×2 (12:45→15:00)
[2021-11-12 15:57] VITALS: BP 142/82; PULSE 66
== END 2021-11-12 17:15 | disposition home or self-care (01) ==
LOC: JP.ED 10:48
DX: R10.13 Epigastric pain (principal); R11.10 Vomiting, unspecified; Z88.6 Allergy status to analgesic agent; Z88.8 Allergy status to other drugs, medicaments and biological substances; Z88.2 Allergy status to sulfonamides; Z88.5 Allergy status to narcotic agent; Z79.899 Other long term (current) drug therapy
CPT/HCPCS: 36415; 80053; 80305; 81001; 82150; 83690; 85025; 86140; 96361; 96372; 96374; 99284; C9113; J3410; J3490; J7120

== ENCOUNTER 2022-01-13 07:10 | Day surgery (SDC) | payer MEDICAID ==
[2022-01-13] MEDS ORDERED: Propofol 200 MG/20 ML SDV ONE (07:20)
[2022-01-13] MEDS ORDERED: Midazolam 1 MG/ML 2 ML SDV ONE (07:20)
[2022-01-13] MEDS ORDERED: fentaNYL 100 MCG/2 ML SDV ONE (07:20)
[2022-01-13] MEDS ORDERED: Lactated Ringers 1,000 ML IV SCH (08:15)
[2022-01-13 10:17] VITALS: BP 119/78; PULSE 69
== END 2022-01-13 10:26 | disposition home or self-care (01) ==
LOC: JP.SDS 07:10
PROVIDERS: ATTEND Student in an Organized Health Care Education/Training Program
DX: Z12.11 Encounter for screening for malignant neoplasm of colon (principal); K64.9 Unspecified hemorrhoids; K21.9 Gastro-esophageal reflux disease without esophagitis; J45.909 Unspecified asthma, uncomplicated; Z86.010 Personal history of colon polyps; Z88.2 Allergy status to sulfonamides; Z88.6 Allergy status to analgesic agent; Z91.048 Other nonmedicinal substance allergy status; Z88.5 Allergy status to narcotic agent; Z79.899 Other long term (current) drug therapy
CPT/HCPCS: 45378; J2250; J2704; J3010; J7120

== ENCOUNTER 2022-08-01 18:27 | Emergency (ER) | payer MEDICAID ==
[2022-08-01] MEDS ORDERED: Haloperidol Lactate 5 MG/ML SDV IVPUSH ONE (19:11)
[2022-08-01] MEDS ORDERED: Sodium Chloride 0.9% 10 ML Syringe FLUSH PRN (19:11)
[2022-08-01] MEDS ORDERED: Sodium Chloride 0.9% 1,000 ML IV SCH (19:15)
[2022-08-01 19:22] LABS: BASOPHILS PERCENT AUTO 0.2 % (0.1-1.3); HEMATOCRIT 38.8 % (34.3-46.0); HEMOGLOBIN 13.2 g/dL (11.2-15.5); IMMATURE GRAN ABSOLUTE AUTO 0.05 K/uL (0.00-0.23); IMMATURE GRAN PERCENT AUTO 0.5 % (0.0-0.7); LYMPHOCYTES ABSOLUTE AUTO 1.07 K/uL (0.8-3.3); LYMPHOCYTES PERCENT AUTO 10.2 % (11.4-47.7); MEAN CORPUSCULAR HEMOGLOBIN 30.8 pg (31.6-35.5); MEAN CORPUSCULAR VOLUME 90.4 fL (81.4-99.0); MONOCYTES ABSOLUTE AUTO 0.35 K/uL (0.20-0.90); MONOCYTES PERCENT AUTO 3.3 % (3.3-12.6); NEUTROPHILS ABSOLUTE AUTO 9.04 K/uL (1.0-7.6); NEUTROPHILS PERCENT AUTO 85.8 % (40.0-78.1); PLATELET COUNT,PLT 353 K/uL (130-375); RED BLOOD CELL COUNT 4.29 M/uL (3.77-5.24); WHITE BLOOD CELL COUNT,WBC 10.5 K/uL (3.2-11.0)
[2022-08-01 19:30] LABS: BASOPHILS ABSOLUTE AUTO 0.02 K/uL (0.00-0.10)
[2022-08-01 19:33] VITALS: BP 126/70; PULSE 82
[2022-08-01 19:44] LABS: A/G RATIO 1.1 (1.2-2.2); ALANINE AMINOTRANSFERASE,ALT 30 U/L (12-78); ALKALINE PHOSPHATASE 111 U/L (46-116); ASPARTATE AMNIOTRANSFERASE,AST 33 U/L (15-37); BILIRUBIN TOTAL 1.5 mg/dL (0.2-1.0); BLOOD UREA NITROGEN,BUN 15 mg/dL (7-18); CALCIUM 9.2 mg/dL (8.5-10.1); CARBON DIOXIDE,CO2 23 mmol/L (21-32); CHLORIDE,CL 98 mmol/L (100-108); EST CRCL DRUG DOSING (CG) 47.97 mL/min; ESTIMATED GFR 67 mL/min (>60); GLUCOSE RANDOM 135 mg/dL (74-106); LIPASE 61 U/L (73-393); MAGNESIUM 1.7 mg/dL (1.8-2.4); POTASSIUM,K 3.5 mmol/L (3.6-5.2); PROTEIN TOTAL,TP 7.5 g/dL (6.4-8.2); SODIUM,NA 135 mmol/L (140-148)
[2022-08-01 19:45] LABS: ANION GAP 17.5 mmol/L (5.0-14.0)
== END 2022-08-01 20:57 | disposition home or self-care (01) ==
LOC: JP.ED 18:27
DX: R10.12 Left upper quadrant pain (principal); R10.816 Epigastric abdominal tenderness; R11.2 Nausea with vomiting, unspecified; F12.10 Cannabis abuse, uncomplicated; J45.909 Unspecified asthma, uncomplicated; Z91.09 Other allergy status, other than to drugs and biological substances; Z91.018 Allergy to other foods; Z88.8 Allergy status to other drugs, medicaments and biological substances; Z88.2 Allergy status to sulfonamides; Z88.5 Allergy status to narcotic agent; Z91.048 Other nonmedicinal substance allergy status; Z20.822 Contact with and (suspected) exposure to COVID-19; Z98.84 Bariatric surgery status; Z95.1 Presence of aortocoronary bypass graft
CPT/HCPCS: 36415; 80053; 83605; 83690; 83735; 85025; 87635; 96361; 96374; 99284; J1630; J3490; J7030; U0002

== ENCOUNTER 2023-03-17 05:11 | Emergency (ER) | payer MEDICAID ==
[2023-03-17 05:55] LABS: BASOPHILS PERCENT AUTO 0.1 % (0.1-1.3); EOSINOPHILS ABSOLUTE AUTO 0.08 K/uL (0.00-0.40); EOSINOPHILS PERCENT AUTO 0.9 % (0.0-5.4); HEMATOCRIT 19.6 % (34.3-46.0); IMMATURE GRAN ABSOLUTE AUTO 0.08 K/uL (0.00-0.23); IMMATURE GRAN PERCENT AUTO 0.9 % (0.0-0.7); LYMPHOCYTES ABSOLUTE AUTO 0.81 K/uL (0.8-3.3); LYMPHOCYTES PERCENT AUTO 8.8 % (11.4-47.7); MEAN CORPUSCULAR HEMOGLOBIN 29.9 pg (31.6-35.5); MEAN CORPUSCULAR HGB CONC 33.7 g/dL (31.6-35.5); MEAN CORPUSCULAR VOLUME 88.7 fL (81.4-99.0); MONOCYTES ABSOLUTE AUTO 0.69 K/uL (0.20-0.90); MONOCYTES PERCENT AUTO 7.5 % (3.3-12.6); NEUTROPHILS ABSOLUTE AUTO 7.51 K/uL (1.0-7.6); NEUTROPHILS PERCENT AUTO 81.8 % (40.0-78.1); PLATELET COUNT,PLT 534 K/uL (130-375); RED BLOOD CELL COUNT 2.21 M/uL (3.77-5.24); WHITE BLOOD CELL COUNT,WBC 9.2 K/uL (3.2-11.0)
[2023-03-17 06:02] LABS: BASOPHILS ABSOLUTE AUTO 0.01 K/uL (0.00-0.10); HEMOGLOBIN 6.6 g/dL (11.2-15.5)
[2023-03-17 06:12] LABS: CALCIUM 7.5 mg/dL (8.5-10.1); CREATININE 0.8 mg/dL (0.6-1.0); EST CRCL DRUG DOSING (CG) 59.25 mL/min
[2023-03-17 06:14] LABS: ANION GAP 10.6 mmol/L (5.0-14.0); POTASSIUM,K 2.6 mmol/L (3.6-5.2)
[2023-03-17] MEDS ORDERED: Potassium Chloride 20 MEQ Tab.ER PO ONE (06:15)
[2023-03-17] MEDS ORDERED: NS + KCl 20mEq/L 1,000 ML IV SCH (06:15)
[2023-03-17 09:18] VITALS: BP 118/77; PULSE 85
== END 2023-03-17 10:49 | disposition home or self-care (01) ==
LOC: JP.ED 05:11
DX: K91.840 Postprocedural hemorrhage of a digestive system organ or structure following a digestive system procedure (principal); K21.9 Gastro-esophageal reflux disease without esophagitis; Z90.49 Acquired absence of other specified parts of digestive tract; Z79.899 Other long term (current) drug therapy; Z88.2 Allergy status to sulfonamides; Z88.6 Allergy status to analgesic agent; Z91.018 Allergy to other foods; Z88.5 Allergy status to narcotic agent; Z91.048 Other nonmedicinal substance allergy status
CPT/HCPCS: 36415; 36430; 80048; 85025; 86850; 86900; 86901; 86920; 86922; 96365; 96366; 99284-25; A9270-GY; J3480; P9016

== ENCOUNTER 2023-04-07 12:18 | Emergency (ER) | payer MEDICAID ==
[2023-04-07 12:44] VITALS: BP 112/69; PULSE 101
== END 2023-04-07 13:48 | disposition home or self-care (01) ==
LOC: JP.ED 12:18
DX: K62.89 Other specified diseases of anus and rectum (principal); J45.909 Unspecified asthma, uncomplicated; Z88.2 Allergy status to sulfonamides
CPT/HCPCS: 99283

== ENCOUNTER 2023-07-11 03:42 | Inpatient (IN) | payer MEDICAID ==
[2023-07-11] MEDS: Sodium Chloride 0.9% 500 ML IV ONE (04:07)
[2023-07-11] MEDS: droPERidol 5 MG/2 ML SDV IVPUSH ONE (04:07)
[2023-07-11 04:09] LABS: BASOPHILS ABSOLUTE AUTO 0.03 K/uL (0.00-0.10); BASOPHILS PERCENT AUTO 0.3 % (0.1-1.3); EOSINOPHILS ABSOLUTE AUTO 0.19 K/uL (0.00-0.40); EOSINOPHILS PERCENT AUTO 1.7 % (0.0-5.4); HEMATOCRIT 38.2 % (34.3-46.0); HEMOGLOBIN 12.9 g/dL (11.2-15.5); IMMATURE GRAN ABSOLUTE AUTO 0.03 K/uL (0.00-0.23); IMMATURE GRAN PERCENT AUTO 0.3 % (0.0-0.7); LYMPHOCYTES ABSOLUTE AUTO 1.09 K/uL (0.8-3.3); LYMPHOCYTES PERCENT AUTO 9.6 % (11.4-47.7); MEAN CORPUSCULAR HEMOGLOBIN 29.4 pg (31.6-35.5); MEAN CORPUSCULAR HGB CONC 33.8 g/dL (31.6-35.5); MONOCYTES ABSOLUTE AUTO 0.42 K/uL (0.20-0.90); MONOCYTES PERCENT AUTO 3.7 % (3.3-12.6); NEUTROPHILS ABSOLUTE AUTO 9.54 K/uL (1.0-7.6); NEUTROPHILS PERCENT AUTO 84.4 % (40.0-78.1); PLATELET COUNT,PLT 317 K/uL (130-375); RED BLOOD CELL COUNT 4.39 M/uL (3.77-5.24); WHITE BLOOD CELL COUNT,WBC 11.3 K/uL (3.2-11.0)
[2023-07-11 04:35] LABS: A/G RATIO 1.1 (1.2-2.2); ALANINE AMINOTRANSFERASE,ALT 22 U/L (12-78); ALBUMIN 4.1 g/dL (3.4-5.0); ALKALINE PHOSPHATASE 110 U/L (46-116); ASPARTATE AMNIOTRANSFERASE,AST 28 U/L (15-37); BILIRUBIN TOTAL 0.7 mg/dL (0.2-1.0); BLOOD UREA NITROGEN,BUN 25 mg/dL (7-18); CALCIUM 9.9 mg/dL (8.5-10.1); CARBON DIOXIDE,CO2 22 mmol/L (21-32); CHLORIDE,CL 102 mmol/L (100-108); CREATININE 1.1 mg/dL (0.6-1.0); EST CRCL DRUG DOSING (CG) 38.77 mL/min; ESTIMATED GFR 59 mL/min (>60); GLUCOSE RANDOM 170 mg/dL (74-106); POTASSIUM,K 3.5 mmol/L (3.6-5.2); PROTEIN TOTAL,TP 7.9 g/dL (6.4-8.2); SODIUM,NA 140 mmol/L (140-148)
[2023-07-11 04:47] LABS: CORONAVIRUS COVID-19 NAA NEGATIVE (NEGATIVE); INFLUENZA A NAA NEGATIVE (NEGATIVE); INFLUENZA B NAA NEGATIVE (NEGATIVE); RESPIRATORY SYNCYTIAL VIR NAA NEGATIVE (NEGATIVE)
[2023-07-11 04:47] LABS: ANION GAP 19.5 mmol/L (5.0-14.0)
[2023-07-11 04:48] LABS: C-REACTIVE PROTEIN < 0.50 mg/dL (<0.50)
[2023-07-11] MEDS ORDERED: Ondansetron 4 MG Tab.DIS PO PRN (07:28)
[2023-07-11] MEDS ORDERED: Melatonin 3 MG Tab PO PRN (07:28)
[2023-07-11] MEDS ORDERED: fentaNYL 50 MCG/ML SDV IVPUSH PRN (09:31)
[2023-07-11] MEDS: LORazepam 2 MG/ML SDV IVPUSH PRN (10:08)
[2023-07-11] MEDS: Pantoprazole 40 MG Vial IV SCH (10:16)
[2023-07-11] MEDS: Potassium Chloride 10 MEQ in Premix Bag 1 BAG IV SCH (10:19)
[2023-07-11] MEDS: Albuterol/Ipratropium 3.0-0.5 MG/3 ML Neb Soln NEB SCH (10:52)
[2023-07-11] MEDS: oxyCODONE 5 MG Tab PO PRN (12:50)
[2023-07-11] MEDS: Acetaminophen 325 MG Tab PO PRN (12:54)
[2023-07-11] MEDS: Sodium Chloride 0.9% 1,000 ML IV SCH (15:57)
[2023-07-11] MEDS: Ondansetron 4 MG/2 ML SDV IV PRN (18:36)
[2023-07-12 05:35] VITALS: BP 119/71; PULSE 92
[2023-07-12 05:47] LABS: HEMATOCRIT 29.5 % (34.3-46.0); HEMOGLOBIN 9.6 g/dL (11.2-15.5); MEAN CORPUSCULAR HGB CONC 32.5 g/dL (31.6-35.5); MEAN CORPUSCULAR VOLUME 89.1 fL (81.4-99.0); RED BLOOD CELL COUNT 3.31 M/uL (3.77-5.24)
[2023-07-12 06:01] LABS: ANION GAP 14.5 mmol/L (5.0-14.0); CALCIUM 8.5 mg/dL (8.5-10.1); EST CRCL DRUG DOSING (CG) 45.12 mL/min; POTASSIUM,K 3.5 mmol/L (3.6-5.2)
[2023-07-12] MEDS: Pantoprazole 40 MG Tab.CR PO SCH (07:55)
[2023-07-12] MEDS: Potassium Chloride 10 MEQ in Premix Bag 1 BAG IV SCH (09:33)
== END 2023-07-12 10:50 | disposition home or self-care (01) | DRG 392 ==
LOC: JP.ED 03:42 → JP.MS 06:21
PROVIDERS: ADMIT Registered Nurse; ATTEND Internal Medicine
DX: A08.4 Viral intestinal infection, unspecified (principal); E86.0 Dehydration; E87.6 Hypokalemia; J45.909 Unspecified asthma, uncomplicated; K59.09 Other constipation; K21.9 Gastro-esophageal reflux disease without esophagitis; M19.90 Unspecified osteoarthritis, unspecified site; M54.2 Cervicalgia; G89.29 Other chronic pain; F41.9 Anxiety disorder, unspecified; H54.7 Unspecified visual loss; F32.A Depression, unspecified; Z88.8 Allergy status to other drugs, medicaments and biological substances; Z91.048 Other nonmedicinal substance allergy status; Z91.018 Allergy to other foods; Z88.2 Allergy status to sulfonamides; Z79.51 Long term (current) use of inhaled steroids; Z79.899 Other long term (current) drug therapy; Z86.010 Personal history of colon polyps; Z87.11 Personal history of peptic ulcer disease; Z87.19 Personal history of other diseases of the digestive system; Z87.442 Personal history of urinary calculi; Z90.89 Acquired absence of other organs; Z90.49 Acquired absence of other specified parts of digestive tract; Z98.84 Bariatric surgery status; Z98.51 Tubal ligation status; Z98.890 Other specified postprocedural states
CPT/HCPCS: 0241U; 36415; 74176; 80048; 80053; 83605; 83690; 84145; 85025; 85027; 86140; 87040; 94640; 96361; 96374; 99222; 99238; 99285-25; A9270-GY; C9113; J1790; J2060; J2405; J3480; J7030; J7620

== ENCOUNTER 2023-07-23 18:38 | Emergency (ER) | payer MEDICAID ==
[2023-07-23] MEDS: fentaNYL 100 MCG/2 ML SDV IVPUSH ONE (19:22)
[2023-07-23] MEDS: droPERidol 5 MG/2 ML SDV IVPUSH ONE (19:25)
[2023-07-23 19:27] LABS: BASOPHILS PERCENT AUTO 0.1 % (0.1-1.3); EOSINOPHILS PERCENT AUTO 0.1 % (0.0-5.4); HEMATOCRIT 34.5 % (34.3-46.0); HEMOGLOBIN 12.1 g/dL (11.2-15.5); IMMATURE GRAN ABSOLUTE AUTO 0.04 K/uL (0.00-0.23); IMMATURE GRAN PERCENT AUTO 0.3 % (0.0-0.7); LYMPHOCYTES ABSOLUTE AUTO 1.42 K/uL (0.8-3.3); MEAN CORPUSCULAR HEMOGLOBIN 29.4 pg (31.6-35.5); MEAN CORPUSCULAR HGB CONC 35.1 g/dL (31.6-35.5); MEAN CORPUSCULAR VOLUME 83.7 fL (81.4-99.0); MONOCYTES ABSOLUTE AUTO 0.54 K/uL (0.20-0.90); MONOCYTES PERCENT AUTO 3.8 % (3.3-12.6); NEUTROPHILS ABSOLUTE AUTO 12.21 K/uL (1.0-7.6); NEUTROPHILS PERCENT AUTO 85.7 % (40.0-78.1); PLATELET COUNT,PLT 414 K/uL (130-375); RED BLOOD CELL COUNT 4.12 M/uL (3.77-5.24); WHITE BLOOD CELL COUNT,WBC 14.2 K/uL (3.2-11.0)
[2023-07-23] MEDS: Sodium Chloride 0.9% 10 ML Syringe FLUSH PRN (19:27)
[2023-07-23 19:31] LABS: BASOPHILS ABSOLUTE AUTO 0.01 K/uL (0.00-0.10); EOSINOPHILS ABSOLUTE AUTO 0.01 K/uL (0.00-0.40)
[2023-07-23 19:51] LABS: ALANINE AMINOTRANSFERASE,ALT 35 U/L (12-78); ALBUMIN 3.9 g/dL (3.4-5.0); ALKALINE PHOSPHATASE 107 U/L (46-116); ASPARTATE AMNIOTRANSFERASE,AST 32 U/L (15-37); BILIRUBIN TOTAL 1.1 mg/dL (0.2-1.0); BLOOD UREA NITROGEN,BUN 17 mg/dL (7-18); CALCIUM 9.5 mg/dL (8.5-10.1); CARBON DIOXIDE,CO2 21 mmol/L (21-32); CHLORIDE,CL 97 mmol/L (100-108); CREATININE 1.2 mg/dL (0.6-1.0); ESTIMATED GFR 53 mL/min (>60); GLUCOSE RANDOM 135 mg/dL (74-106); PROTEIN TOTAL,TP 7.8 g/dL (6.4-8.2); SODIUM,NA 134 mmol/L (140-148)
[2023-07-23 19:54] LABS: ANION GAP 18.9 mmol/L (5.0-14.0); POTASSIUM,K 2.9 mmol/L (3.6-5.2); TROPONIN I HIGH SENSITIVITY < 4.0 pg/mL (<=60.3)
[2023-07-23] MEDS: Sodium Chloride 0.9% 100 ML IV ONE (20:05)
[2023-07-23] MEDS: Sodium Chloride 0.9% 10 ML Syringe FLUSH ONE (20:05)
[2023-07-23] MEDS: Iopamidol 612 MG/ML 100 ML Bottle IV ONE (20:05)
[2023-07-23] MEDS: Lactated Ringers 1,000 ML IV SCH (20:15)
[2023-07-23] MEDS ORDERED: Potassium Chloride 20 MEQ in Premix Bag 1 BAG IV ONE (20:47)
[2023-07-23] MEDS: Potassium Chloride 20 MEQ Tab.ER PO ONE (21:08)
[2023-07-23] MEDS: Potassium Chloride 10 MEQ in Premix Bag 1 BAG IV ONE ×2 (21:32→22:46)
[2023-07-23 22:15] VITALS: PULSE 84
[2023-07-23 23:03] VITALS: BP 116/66
== END 2023-07-23 23:53 | disposition home or self-care (01) ==
LOC: JP.ED 18:38
DX: R10.12 Left upper quadrant pain (principal); J45.909 Unspecified asthma, uncomplicated; Z79.899 Other long term (current) drug therapy; Z88.2 Allergy status to sulfonamides; Z91.048 Other nonmedicinal substance allergy status; Z88.6 Allergy status to analgesic agent; Z88.8 Allergy status to other drugs, medicaments and biological substances; Z91.018 Allergy to other foods
CPT/HCPCS: 36415; 74177; 80053; 83605; 83690; 84145; 84484; 85025; 86140; 87040; 96361; 96365; 96366; 96375; 99284; A9270; J1790; J3010; J3480; J3490; J7120; Q9967

== ENCOUNTER 2023-08-07 11:28 | Emergency (ER) | payer MEDICAID ==
[2023-08-07] MEDS ORDERED: Naloxone 0.4 MG/ML SDV IVPUSH PRN (11:55)
[2023-08-07 11:57] LABS: BASOPHILS ABSOLUTE AUTO 0.02 K/uL (0.00-0.10); BASOPHILS PERCENT AUTO 0.2 % (0.1-1.3); EOSINOPHILS ABSOLUTE AUTO 0.02 K/uL (0.00-0.40); EOSINOPHILS PERCENT AUTO 0.2 % (0.0-5.4); HEMATOCRIT 35.5 % (34.3-46.0); HEMOGLOBIN 12.2 g/dL (11.2-15.5); IMMATURE GRAN PERCENT AUTO 0.2 % (0.0-0.7); LYMPHOCYTES ABSOLUTE AUTO 2.19 K/uL (0.8-3.3); LYMPHOCYTES PERCENT AUTO 22.6 % (11.4-47.7); MEAN CORPUSCULAR HEMOGLOBIN 29.3 pg (31.6-35.5); MEAN CORPUSCULAR HGB CONC 34.4 g/dL (31.6-35.5); MEAN CORPUSCULAR VOLUME 85.3 fL (81.4-99.0); MONOCYTES ABSOLUTE AUTO 0.79 K/uL (0.20-0.90); MONOCYTES PERCENT AUTO 8.1 % (3.3-12.6); NEUTROPHILS ABSOLUTE AUTO 6.66 K/uL (1.0-7.6); NEUTROPHILS PERCENT AUTO 68.7 % (40.0-78.1); PLATELET COUNT,PLT 376 K/uL (130-375); RED BLOOD CELL COUNT 4.16 M/uL (3.77-5.24); WHITE BLOOD CELL COUNT,WBC 9.7 K/uL (3.2-11.0)
[2023-08-07 11:58] LABS: IMMATURE GRAN ABSOLUTE AUTO 0.02 K/uL (0.00-0.23)
[2023-08-07] MEDS: droPERidol 5 MG/2 ML SDV IV ONE (12:02)
[2023-08-07] MEDS: diphenhydrAMINE 50 MG/ML SDV IVPUSH ONE (12:02)
[2023-08-07] MEDS: fentaNYL 50 MCG/ML SDV IVPUSH ONE (12:02)
[2023-08-07] MEDS: Sodium Chloride 0.9% 1,000 ML IV SCH (12:02)
[2023-08-07] MEDS: Sodium Chloride 0.9% 10 ML Syringe FLUSH PRN (12:15)
[2023-08-07 12:18] LABS: A/G RATIO 0.9 (1.2-2.2); ALANINE AMINOTRANSFERASE,ALT 22 U/L (12-78); ALBUMIN 3.7 g/dL (3.4-5.0); ALKALINE PHOSPHATASE 100 U/L (46-116); ASPARTATE AMNIOTRANSFERASE,AST 22 U/L (15-37); BILIRUBIN TOTAL 0.9 mg/dL (0.2-1.0); BLOOD UREA NITROGEN,BUN 17 mg/dL (7-18); CALCIUM 9.5 mg/dL (8.5-10.1); CARBON DIOXIDE,CO2 22 mmol/L (21-32); CHLORIDE,CL 101 mmol/L (100-108); EST CRCL DRUG DOSING (CG) 45.12 mL/min; ESTIMATED GFR 66 mL/min (>60); GLUCOSE RANDOM 122 mg/dL (74-106); POTASSIUM,K 3.3 mmol/L (3.6-5.2); PROTEIN TOTAL,TP 7.8 g/dL (6.4-8.2); SODIUM,NA 138 mmol/L (140-148)
[2023-08-07 12:20] LABS: ANION GAP 18.3 mmol/L (5.0-14.0)
[2023-08-07] MEDS: Sodium Chloride 0.9% 10 ML Syringe FLUSH ONE (12:47)
[2023-08-07] MEDS: Sodium Chloride 0.9% 80 ML IV SCH (12:47)
[2023-08-07] MEDS: Iopamidol 612 MG/ML 100 ML Bottle IV SCH (12:47)
[2023-08-07 13:23] VITALS: BP 119/64; PULSE 90
== END 2023-08-07 13:49 | disposition home or self-care (01) ==
LOC: JP.ED 11:28
DX: R10.10 Upper abdominal pain, unspecified (principal); R11.2 Nausea with vomiting, unspecified; E86.0 Dehydration; J45.909 Unspecified asthma, uncomplicated; K21.9 Gastro-esophageal reflux disease without esophagitis; Z88.2 Allergy status to sulfonamides; Z88.8 Allergy status to other drugs, medicaments and biological substances; Z91.048 Other nonmedicinal substance allergy status; Z91.018 Allergy to other foods; Z79.899 Other long term (current) drug therapy; Z90.49 Acquired absence of other specified parts of digestive tract
CPT/HCPCS: 36415; 74177; 74177-26; 80053; 83690; 85025; 96361; 96374; 96375; 99284-25; J1200; J1790; J3010; J3490; J7030; Q9967

== ENCOUNTER 2023-09-18 17:44 | Emergency (ER) | payer MEDICAID ==
[2023-09-18 18:33] LABS: BASOPHILS PERCENT AUTO 0.2 % (0.1-1.3); EOSINOPHILS ABSOLUTE AUTO 0.03 K/uL (0.00-0.40); EOSINOPHILS PERCENT AUTO 0.2 % (0.0-5.4); HEMATOCRIT 36.9 % (34.3-46.0); HEMOGLOBIN 13.2 g/dL (11.2-15.5); IMMATURE GRAN ABSOLUTE AUTO 0.09 K/uL (0.00-0.23); IMMATURE GRAN PERCENT AUTO 0.7 % (0.0-0.7); LYMPHOCYTES ABSOLUTE AUTO 1.69 K/uL (0.8-3.3); LYMPHOCYTES PERCENT AUTO 13.1 % (11.4-47.7); MEAN CORPUSCULAR HEMOGLOBIN 30.6 pg (31.6-35.5); MEAN CORPUSCULAR HGB CONC 35.8 g/dL (31.6-35.5); MEAN CORPUSCULAR VOLUME 85.6 fL (81.4-99.0); MONOCYTES ABSOLUTE AUTO 0.83 K/uL (0.20-0.90); MONOCYTES PERCENT AUTO 6.4 % (3.3-12.6); NEUTROPHILS ABSOLUTE AUTO 10.26 K/uL (1.0-7.6); NEUTROPHILS PERCENT AUTO 79.4 % (40.0-78.1); PLATELET COUNT,PLT 398 K/uL (130-375); RED BLOOD CELL COUNT 4.31 M/uL (3.77-5.24); WHITE BLOOD CELL COUNT,WBC 12.9 K/uL (3.2-11.0)
[2023-09-18 18:34] LABS: BASOPHILS ABSOLUTE AUTO 0.02 K/uL (0.00-0.10)
[2023-09-18] MEDS: droPERidol 5 MG/2 ML SDV IVPUSH ONE (18:38)
[2023-09-18] MEDS: Sodium Chloride 0.9% 1,000 ML IV SCH (18:43)
[2023-09-18 18:57] LABS: ALANINE AMINOTRANSFERASE,ALT 39 U/L (12-78); ALBUMIN 4.1 g/dL (3.4-5.0); ALKALINE PHOSPHATASE 110 U/L (46-116); ANION GAP 20.3 mmol/L (5.0-14.0); ASPARTATE AMNIOTRANSFERASE,AST 29 U/L (15-37); BILIRUBIN TOTAL 0.8 mg/dL (0.2-1.0); BLOOD UREA NITROGEN,BUN 20 mg/dL (7-18); C-REACTIVE PROTEIN 1.52 mg/dL (<0.50); CALCIUM 10.3 mg/dL (8.5-10.1); CARBON DIOXIDE,CO2 20 mmol/L (21-32); CHLORIDE,CL 98 mmol/L (100-108); EST CRCL DRUG DOSING (CG) 43.73 mL/min; ESTIMATED GFR 66 mL/min (>60); GLUCOSE RANDOM 141 mg/dL (74-106); POTASSIUM,K 3.3 mmol/L (3.6-5.2); PROTEIN TOTAL,TP 8.1 g/dL (6.4-8.2); SODIUM,NA 135 mmol/L (140-148); TROPONIN I HIGH SENSITIVITY 5.8 pg/mL (<=60.3)
[2023-09-18 19:48] LABS: APPEARANCE,URINE CLOUDY (CLEAR); BILIRUBIN,URINE NEGATIVE (NEGATIVE); COLOR,URINE YELLOW (YELLOW); GLUCOSE,URINE NEGATIVE (NEGATIVE); KETONES,URINE TRACE mg/dL (NEGATIVE); LEUKOCYTE ESTERASE,URINE MODERATE (NEGATIVE); NITRITE,URINE NEGATIVE (NEGATIVE); OCCULT BLOOD,URINE NEGATIVE (NEGATIVE); PH,URINE 8.5 (5.0-8.0); PROTEIN,URINE 100 mg/dL (NEGATIVE); UROBILINOGEN,URINE 0.2 EU/dL (0.2-1.0)
[2023-09-18 19:54] LABS: AMORPHOUS SEDIMENT,URINE MODERATE; BACTERIA,URINE MODERATE; EPITHELIAL CELLS,URINE FEW; MUCUS,URINE NOT SEEN; RBC,URINE NOT SEEN (0-5)
[2023-09-18] MEDS: Alum Hydrox/Mag Hydrox/Simeth 15 ML, Lidocaine 2% 15 ML PO ONE (20:25)
[2023-09-18] MEDS: oxyCODONE 5 MG Tab PO ONE (20:50)
[2023-09-18 21:12] VITALS: BP 115/70; PULSE 84
== END 2023-09-18 21:05 | disposition home or self-care (01) ==
LOC: JP.ED 17:44
DX: N39.0 Urinary tract infection, site not specified (principal); Z90.49 Acquired absence of other specified parts of digestive tract; Z79.899 Other long term (current) drug therapy; Z88.2 Allergy status to sulfonamides; Z91.048 Other nonmedicinal substance allergy status; Z88.6 Allergy status to analgesic agent; Z88.5 Allergy status to narcotic agent
CPT/HCPCS: 36415; 80053; 81001; 83605; 83690; 84484; 85025; 86140; 93005; 96361; 96374; 99284; A9270; J1790; J7030

== ENCOUNTER 2023-09-21 16:02 | Emergency (ER) | payer MEDICAID ==
[2023-09-21 16:50] VITALS: BP 110/81; PULSE 92
== END 2023-09-21 17:27 | disposition home or self-care (01) ==
LOC: JP.ED 16:02
DX: R10.84 Generalized abdominal pain (principal); J45.909 Unspecified asthma, uncomplicated; Z90.49 Acquired absence of other specified parts of digestive tract; Z79.899 Other long term (current) drug therapy; Z88.2 Allergy status to sulfonamides; Z88.8 Allergy status to other drugs, medicaments and biological substances; Z88.6 Allergy status to analgesic agent; Z91.048 Other nonmedicinal substance allergy status
CPT/HCPCS: 99283

== ENCOUNTER 2023-09-27 04:05 | Emergency (ER) | payer MEDICAID ==
[2023-09-27 04:25] LABS: AMORPHOUS SEDIMENT,URINE NOT SEEN; APPEARANCE,URINE CLEAR (CLEAR); BACTERIA,URINE RARE; BILIRUBIN,URINE NEGATIVE (NEGATIVE); COLOR,URINE YELLOW (YELLOW); EPITHELIAL CELLS,URINE RARE; GLUCOSE,URINE NEGATIVE (NEGATIVE); KETONES,URINE 15 mg/dL (NEGATIVE); LEUKOCYTE ESTERASE,URINE NEGATIVE (NEGATIVE); MUCUS,URINE NOT SEEN; NITRITE,URINE NEGATIVE (NEGATIVE); OCCULT BLOOD,URINE NEGATIVE (NEGATIVE); PH,URINE 8.5 (5.0-8.0); PROTEIN,URINE 30 mg/dL (NEGATIVE); RBC,URINE 0-5 (0-5); UROBILINOGEN,URINE 0.2 EU/dL (0.2-1.0); WBC,URINE 0-5 (0-5)
[2023-09-27] MEDS: droPERidol 5 MG/2 ML SDV IVPUSH ONE (04:29)
[2023-09-27 04:31] LABS: BASOPHILS ABSOLUTE AUTO 0.02 K/uL (0.00-0.10); BASOPHILS PERCENT AUTO 0.2 % (0.1-1.3); EOSINOPHILS ABSOLUTE AUTO 0.02 K/uL (0.00-0.40); EOSINOPHILS PERCENT AUTO 0.2 % (0.0-5.4); HEMATOCRIT 30.8 % (34.3-46.0); HEMOGLOBIN 10.8 g/dL (11.2-15.5); IMMATURE GRAN ABSOLUTE AUTO 0.09 K/uL (0.00-0.23); IMMATURE GRAN PERCENT AUTO 0.8 % (0.0-0.7); LYMPHOCYTES ABSOLUTE AUTO 1.32 K/uL (0.8-3.3); MEAN CORPUSCULAR HEMOGLOBIN 30.1 pg (31.6-35.5); MEAN CORPUSCULAR HGB CONC 35.1 g/dL (31.6-35.5); MEAN CORPUSCULAR VOLUME 85.8 fL (81.4-99.0); MONOCYTES ABSOLUTE AUTO 0.87 K/uL (0.20-0.90); MONOCYTES PERCENT AUTO 7.9 % (3.3-12.6); NEUTROPHILS ABSOLUTE AUTO 8.66 K/uL (1.0-7.6); NEUTROPHILS PERCENT AUTO 78.9 % (40.0-78.1); PLATELET COUNT,PLT 434 K/uL (130-375); RED BLOOD CELL COUNT 3.59 M/uL (3.77-5.24)
[2023-09-27 04:58] LABS: A/G RATIO 0.9 (1.2-2.2); ALBUMIN 3.4 g/dL (3.4-5.0); BILIRUBIN DIRECT 0.11 mg/dL (0.0-0.2); BILIRUBIN INDIRECT 0.39; BILIRUBIN TOTAL 0.5 mg/dL (0.2-1.0); C-REACTIVE PROTEIN 2.3 mg/dL (<0.50); CALCIUM 9.3 mg/dL (8.5-10.1); EST CRCL DRUG DOSING (CG) 44.53 mL/min; PROTEIN TOTAL,TP 7.1 g/dL (6.4-8.2)
[2023-09-27 05:06] LABS: ANION GAP 18.9 mmol/L (5.0-14.0); POTASSIUM,K 2.9 mmol/L (3.6-5.2)
[2023-09-27] MEDS: NS + KCl 20mEq/L 1,000 ML IV SCH (05:16)
[2023-09-27] MEDS ORDERED: HYDROmorphone 1 MG/ML Syringe IVPUSH ONE (08:42)
[2023-09-27] MEDS ORDERED: Tamsulosin 0.4 MG Cap.ER PO ONE (08:42)
[2023-09-27 08:53] VITALS: BP 144/84; PULSE 95
== END 2023-09-27 09:11 | disposition home or self-care (01) ==
LOC: JP.ED 04:05
DX: R10.9 Unspecified abdominal pain (principal); G89.29 Other chronic pain; Z90.49 Acquired absence of other specified parts of digestive tract; Z79.899 Other long term (current) drug therapy; Z88.2 Allergy status to sulfonamides; Z91.048 Other nonmedicinal substance allergy status; Z88.6 Allergy status to analgesic agent; Z91.018 Allergy to other foods; Z88.5 Allergy status to narcotic agent
CPT/HCPCS: 36415; 80048; 80076; 81001; 83605; 83690; 84132; 85025; 86140; 96365; 96366; 96375; 99284; J1790; J3480; 99283

== ENCOUNTER 2023-10-03 04:43 | Inpatient (IN) | payer MEDICAID ==
[2023-10-03] MEDS: Sodium Chloride 0.9% 10 ML Syringe FLUSH PRN (05:11)
[2023-10-03] MEDS: Sodium Chloride 0.9% 500 ML IV SCH (05:11)
[2023-10-03] MEDS: Sodium Chloride 0.9% 1,000 ML IV SCH ×3 (05:12→08:58)
[2023-10-03 05:18] LABS: BASOPHILS ABSOLUTE AUTO 0.04 K/uL (0.00-0.10); BASOPHILS PERCENT AUTO 0.2 % (0.1-1.3); EOSINOPHILS ABSOLUTE AUTO 0.04 K/uL (0.00-0.40); EOSINOPHILS PERCENT AUTO 0.2 % (0.0-5.4); HEMATOCRIT 24.8 % (34.3-46.0); HEMOGLOBIN 8.8 g/dL (11.2-15.5); IMMATURE GRAN ABSOLUTE AUTO 0.19 K/uL (0.00-0.23); IMMATURE GRAN PERCENT AUTO 0.9 % (0.0-0.7); LYMPHOCYTES ABSOLUTE AUTO 2.14 K/uL (0.8-3.3); MEAN CORPUSCULAR HEMOGLOBIN 30.9 pg (31.6-35.5); MEAN CORPUSCULAR HGB CONC 35.5 g/dL (31.6-35.5); MONOCYTES ABSOLUTE AUTO 1.21 K/uL (0.20-0.90); MONOCYTES PERCENT AUTO 5.7 % (3.3-12.6); NEUTROPHILS ABSOLUTE AUTO 17.68 K/uL (1.0-7.6); PLATELET COUNT,PLT 385 K/uL (130-375); RED BLOOD CELL COUNT 2.85 M/uL (3.77-5.24); WHITE BLOOD CELL COUNT,WBC 21.3 K/uL (3.2-11.0)
[2023-10-03] MEDS: Pantoprazole 40 MG Vial IVPUSH ONE ×2 (05:21→08:42)
[2023-10-03] MEDS: Octreotide 500 MCG in Sodium Chloride 0.9% 497.5 ML IV SCH (05:21)
[2023-10-03 05:39] LABS: A/G RATIO 0.8 (1.2-2.2); ALANINE AMINOTRANSFERASE,ALT 6 U/L (12-78); ALBUMIN 1.6 g/dL (3.4-5.0); ALKALINE PHOSPHATASE 53 U/L (46-116); ASPARTATE AMNIOTRANSFERASE,AST 9 U/L (15-37); BILIRUBIN TOTAL 0.3 mg/dL (0.2-1.0); BLOOD UREA NITROGEN,BUN 8 mg/dL (7-18); CARBON DIOXIDE,CO2 18 mmol/L (21-32); CHLORIDE,CL 110 mmol/L (100-108); CREATININE 0.5 mg/dL (0.6-1.0); EST CRCL DRUG DOSING (CG) 84.56 mL/min; ESTIMATED GFR 110 mL/min (>60); GLUCOSE RANDOM 137 mg/dL (74-106); INR 1.3; PROTEIN TOTAL,TP 3.7 g/dL (6.4-8.2); PROTHROMBIN TIME 12.9 sec (9.2-10.6); SODIUM,NA 138 mmol/L (140-148)
[2023-10-03] MEDS: Meperidine PF 100 MG/ML Syringe IVPUSH ONE (05:43)
[2023-10-03 05:44] LABS: CALCIUM 5.5 mg/dL (8.5-10.1)
[2023-10-03] MEDS: Potassium Chloride 10 MEQ in Premix Bag 1 BAG IV ONE (05:54)
[2023-10-03] MEDS ORDERED: Acetaminophen 325 MG Tab PO PRN (09:53)
[2023-10-03] MEDS ORDERED: Albuterol 0.083% 2.5 MG/3 ML Neb Soln NEB PRN (09:53)
[2023-10-03] MEDS ORDERED: Ondansetron 4 MG Tab.DIS PO PRN (09:53)
[2023-10-03] MEDS ORDERED: Magnesium Hydroxide 400 MG/5 ML Susp 30 ML Cup PO PRN (09:53)
[2023-10-03] MEDS ORDERED: Sennosides/Docusate Sodium 50-8.6 MG Tab PO PRN (09:53)
[2023-10-03] MEDS: Potassium Chloride 10 MEQ in Premix Bag 1 BAG IV SCH (11:15)
[2023-10-03] MEDS: Meperidine PF 100 MG/ML Syringe IVPUSH PRN (11:39)
[2023-10-03] MEDS: Magnesium Sulfate/Water 2 GM in Premix Bag 1 BAG IV SCH (12:25)
[2023-10-03] MEDS: NS + KCl 20mEq/L 1,000 ML IV SCH (15:00)
[2023-10-03] MEDS: Pantoprazole 40 MG Vial IV SCH (20:51)
[2023-10-03] MEDS: LORazepam 2 MG/ML SDV IVPUSH PRN (21:51)
[2023-10-04 05:41] LABS: HEMATOCRIT 27.5 % (34.3-46.0); HEMOGLOBIN 9.5 g/dL (11.2-15.5); MEAN CORPUSCULAR HEMOGLOBIN 30.3 pg (31.6-35.5); MEAN CORPUSCULAR HGB CONC 34.5 g/dL (31.6-35.5); MEAN CORPUSCULAR VOLUME 87.6 fL (81.4-99.0); RED BLOOD CELL COUNT 3.14 M/uL (3.77-5.24); WHITE BLOOD CELL COUNT,WBC 7.7 K/uL (3.2-11.0)
[2023-10-04 05:55] LABS: CALCIUM 7.7 mg/dL (8.5-10.1); CREATININE 0.9 mg/dL (0.6-1.0); EST CRCL DRUG DOSING (CG) 50.13 mL/min; POTASSIUM,K 4.2 mmol/L (3.6-5.2)
[2023-10-04 06:07] LABS: ANION GAP 13.2 mmol/L (5.0-14.0)
[2023-10-04] MEDS ORDERED: Propofol 200 MG/20 ML SDV ONE (10:58)
[2023-10-04] MEDS ORDERED: fentaNYL 100 MCG/2 ML SDV ONE (10:58)
[2023-10-04] MEDS ORDERED: Midazolam 1 MG/ML 2 ML SDV ONE (10:58)
[2023-10-04] MEDS: NS + KCl 20mEq/L 1,000 ML IV SCH (15:23)
[2023-10-05] MEDS: Ondansetron 4 MG/2 ML SDV IV PRN (05:05)
[2023-10-05 05:33] LABS: HEMATOCRIT 28.7 % (34.3-46.0); HEMOGLOBIN 10.1 g/dL (11.2-15.5); MEAN CORPUSCULAR HEMOGLOBIN 30.5 pg (31.6-35.5); MEAN CORPUSCULAR HGB CONC 35.2 g/dL (31.6-35.5); MEAN CORPUSCULAR VOLUME 86.7 fL (81.4-99.0); RED BLOOD CELL COUNT 3.31 M/uL (3.77-5.24); WHITE BLOOD CELL COUNT,WBC 6.2 K/uL (3.2-11.0)
[2023-10-05 05:55] LABS: CALCIUM 8.2 mg/dL (8.5-10.1); CREATININE 0.8 mg/dL (0.6-1.0); EST CRCL DRUG DOSING (CG) 56.4 mL/min; POTASSIUM,K 4.2 mmol/L (3.6-5.2)
[2023-10-05 06:02] LABS: ANION GAP 18.2 mmol/L (5.0-14.0)
[2023-10-05] MEDS ORDERED: tiZANidine 2 MG Tab PO PRN (09:19)
[2023-10-05] MEDS ORDERED: oxyCODONE 5 MG Tab PO PRN (09:20)
[2023-10-05] MEDS: Citalopram 20 MG Tab PO SCH (09:50)
[2023-10-05] MEDS: Hypromellose 0.3% Ophth Soln 15 ML Bottle EYEBOTH PRN (09:51)
[2023-10-05] MEDS: Sucralfate 1 GM Tab PO SCH (10:46)
[2023-10-05] MEDS: Morphine 4 MG/ML Syringe IVPUSH ONE (12:26)
[2023-10-05] MEDS: Pantoprazole 40 MG Tab.CR PO SCH (16:20)
[2023-10-05] MEDS: LORazepam 1 MG Tab PO PRN (19:57)
[2023-10-05] MEDS: Montelukast 5 MG Tab.Chew PO SCH (20:00)
[2023-10-06 05:00] LABS: BASOPHILS PERCENT AUTO 0.3 % (0.1-1.3); EOSINOPHILS ABSOLUTE AUTO 0.21 K/uL (0.00-0.40); EOSINOPHILS PERCENT AUTO 2.9 % (0.0-5.4); HEMATOCRIT 28.2 % (34.3-46.0); IMMATURE GRAN ABSOLUTE AUTO 0.06 K/uL (0.00-0.23); IMMATURE GRAN PERCENT AUTO 0.8 % (0.0-0.7); LYMPHOCYTES ABSOLUTE AUTO 1.75 K/uL (0.8-3.3); LYMPHOCYTES PERCENT AUTO 24.3 % (11.4-47.7); MEAN CORPUSCULAR HEMOGLOBIN 30.3 pg (31.6-35.5); MEAN CORPUSCULAR HGB CONC 35.5 g/dL (31.6-35.5); MEAN CORPUSCULAR VOLUME 85.5 fL (81.4-99.0); MONOCYTES ABSOLUTE AUTO 0.66 K/uL (0.20-0.90); MONOCYTES PERCENT AUTO 9.2 % (3.3-12.6); NEUTROPHILS ABSOLUTE AUTO 4.49 K/uL (1.0-7.6); NEUTROPHILS PERCENT AUTO 62.5 % (40.0-78.1); PLATELET COUNT,PLT 443 K/uL (130-375); WHITE BLOOD CELL COUNT,WBC 7.2 K/uL (3.2-11.0)
[2023-10-06 05:14] LABS: BASOPHILS ABSOLUTE AUTO 0.02 K/uL (0.00-0.10)
[2023-10-06 05:20] LABS: ANION GAP 12.8 mmol/L (5.0-14.0); CALCIUM 8.8 mg/dL (8.5-10.1); CREATININE 0.8 mg/dL (0.6-1.0); EST CRCL DRUG DOSING (CG) 56.4 mL/min; POTASSIUM,K 3.8 mmol/L (3.6-5.2)
[2023-10-06 11:44] VITALS: BP 116/63; PULSE 98
== END 2023-10-06 15:45 | disposition home or self-care (01) | DRG 378 ==
LOC: JP.ED 04:43 → JP.ICU 08:41 → JP.MS 10-05 12:56
PROVIDERS: ADMIT Internal Medicine; ATTEND Internal Medicine
PROC: 0DJ08ZZ Inspection of Upper Intestinal Tract, Via Natural or Artificial Opening Endoscopic (ICD-10-PCS; principal; 2023-10-03)
PROC: 30233N1 Transfusion of Nonautologous Red Blood Cells into Peripheral Vein, Percutaneous Approach (ICD-10-PCS; 2023-10-03)
DX: K25.4 Chronic or unspecified gastric ulcer with hemorrhage (principal); D62 Acute posthemorrhagic anemia; E46 Unspecified protein-calorie malnutrition; Z68.1 Body mass index [BMI] 19.9 or less, adult; K92.0 Hematemesis; E87.6 Hypokalemia; E83.51 Hypocalcemia; Z88.2 Allergy status to sulfonamides; K59.09 Other constipation; K21.9 Gastro-esophageal reflux disease without esophagitis; F41.9 Anxiety disorder, unspecified; F32.A Depression, unspecified; F43.10 Post-traumatic stress disorder, unspecified; Z90.89 Acquired absence of other organs; Z88.8 Allergy status to other drugs, medicaments and biological substances; Z90.49 Acquired absence of other specified parts of digestive tract; Z98.84 Bariatric surgery status; Z86.010 Personal history of colon polyps; Z98.51 Tubal ligation status
CPT/HCPCS: 00731-QZ; 36415; 36430; 74018; 74018-26; 80048; 80053; 82330; 83605; 83735; 84132; 85018; 85025; 85027; 85610; 85730; 86850; 86900; 86901; 86920; 86922; 96361; 96365; 96375; 99222; 99232; 99238; 99285; 99285-25; A9270-GY; C9113; J2060; J2175; J2250; J2354-JA; J2405; J2704; J3010; J3475; J3480; J3490; J7030; J7040; P9016

== ENCOUNTER 2023-11-07 13:24 | Emergency (ER) | payer MEDICAID ==
[2023-11-07] MEDS: Sodium Chloride 0.9% 1,000 ML IV SCH (14:39)
[2023-11-07] MEDS: Ondansetron 4 MG/2 ML SDV IVPUSH ONE (14:40)
[2023-11-07] MEDS: Pantoprazole 40 MG Vial IVPUSH ONE (14:41)
[2023-11-07 14:43] LABS: PROTHROMBIN TIME 9.9 sec (9.2-10.6)
[2023-11-07] MEDS ORDERED: Sodium Chloride 0.9% 100 ML IV SCH (14:45)
[2023-11-07] MEDS ORDERED: Iopamidol 612 MG/ML 100 ML Bottle IV SCH (14:45)
[2023-11-07 14:58] LABS: ALANINE AMINOTRANSFERASE,ALT 15 U/L (12-78); ALKALINE PHOSPHATASE 104 U/L (46-116); ANION GAP 19.3 mmol/L (5.0-14.0); ASPARTATE AMNIOTRANSFERASE,AST 15 U/L (15-37); BILIRUBIN TOTAL 1.2 mg/dL (0.2-1.0); CARBON DIOXIDE,CO2 24 mmol/L (21-32); CHLORIDE,CL 101 mmol/L (100-108); POTASSIUM,K 3.3 mmol/L (3.6-5.2); PROTEIN TOTAL,TP 7.5 g/dL (6.4-8.2); SODIUM,NA 141 mmol/L (140-148)
[2023-11-07 15:06] LABS: A/G RATIO 1.3 (1.2-2.2); ALBUMIN 4.3 g/dL (3.4-5.0); BLOOD UREA NITROGEN,BUN 12 mg/dL (7-18); EST CRCL DRUG DOSING (CG) 44.08 mL/min; ESTIMATED GFR 66 mL/min (>60); GLUCOSE RANDOM 129 mg/dL (74-106)
[2023-11-07 15:13] LABS: CALCIUM 9.7 mg/dL (8.5-10.1)
[2023-11-07] MEDS: Morphine 2 MG/ML SYRINGE IVPUSH ONE (15:15)
[2023-11-07 15:23] LABS: BASOPHILS ABSOLUTE AUTO 0.05 K/uL (0.00-0.10); BASOPHILS PERCENT AUTO 0.4 % (0.1-1.3); EOSINOPHILS ABSOLUTE AUTO 0.06 K/uL (0.00-0.40); EOSINOPHILS PERCENT AUTO 0.4 % (0.0-5.4); HEMATOCRIT 39.2 % (34.3-46.0); HEMOGLOBIN 13.7 g/dL (11.2-15.5); IMMATURE GRAN ABSOLUTE AUTO 0.08 K/uL (0.00-0.23); IMMATURE GRAN PERCENT AUTO 0.6 % (0.0-0.7); LYMPHOCYTES PERCENT AUTO 7.8 % (11.4-47.7); MEAN CORPUSCULAR HEMOGLOBIN 30.6 pg (31.6-35.5); MEAN CORPUSCULAR HGB CONC 34.9 g/dL (31.6-35.5); MEAN CORPUSCULAR VOLUME 87.7 fL (81.4-99.0); MONOCYTES ABSOLUTE AUTO 0.47 K/uL (0.20-0.90); MONOCYTES PERCENT AUTO 3.3 % (3.3-12.6); NEUTROPHILS ABSOLUTE AUTO 12.42 K/uL (1.0-7.6); NEUTROPHILS PERCENT AUTO 87.5 % (40.0-78.1); PLATELET COUNT,PLT 386 K/uL (130-375); RED BLOOD CELL COUNT 4.47 M/uL (3.77-5.24); WHITE BLOOD CELL COUNT,WBC 14.2 K/uL (3.2-11.0)
[2023-11-07] MEDS: Prochlorperazine 10 MG/2 ML SDV IVPUSH ONE (15:52)
[2023-11-07] MEDS: LORazepam 2 MG/ML SDV IVPUSH ONE (16:04)
[2023-11-07] MEDS: Sodium Chloride 0.9% 10 ML Syringe FLUSH ONE (16:06)
[2023-11-07] MEDS: HYDROmorphone 0.5 MG/0.5 ML Syringe IVPUSH ONE (22:45)
[2023-11-07 22:50] LABS: APPEARANCE,URINE CLEAR (CLEAR); BILIRUBIN,URINE NEGATIVE (NEGATIVE); COLOR,URINE YELLOW (YELLOW); GLUCOSE,URINE NEGATIVE (NEGATIVE); KETONES,URINE NEGATIVE (NEGATIVE); LEUKOCYTE ESTERASE,URINE NEGATIVE (NEGATIVE); NITRITE,URINE NEGATIVE (NEGATIVE); OCCULT BLOOD,URINE TRACE-INTACT (NEGATIVE); PROTEIN,URINE NEGATIVE (NEGATIVE); UROBILINOGEN,URINE 0.2 EU/dL (0.2-1.0)
[2023-11-07 22:55] LABS: AMORPHOUS SEDIMENT,URINE NOT SEEN; BACTERIA,URINE FEW; EPITHELIAL CELLS,URINE RARE; MUCUS,URINE RARE; RBC,URINE 0-5 (0-5); WBC,URINE 0-5 (0-5)
[2023-11-08] MEDS: Prochlorperazine 10 MG/2 ML SDV IVPUSH ONE (02:22)
[2023-11-08] MEDS: Morphine 10 MG/ML Syringe IVPUSH ONE (02:24)
[2023-11-08 10:34] LABS: BASOPHILS ABSOLUTE AUTO 0.04 K/uL (0.00-0.10); BASOPHILS PERCENT AUTO 0.3 % (0.1-1.3); EOSINOPHILS ABSOLUTE AUTO 0.03 K/uL (0.00-0.40); EOSINOPHILS PERCENT AUTO 0.3 % (0.0-5.4); HEMATOCRIT 37.4 % (34.3-46.0); HEMOGLOBIN 12.8 g/dL (11.2-15.5); IMMATURE GRAN ABSOLUTE AUTO 0.06 K/uL (0.00-0.23); IMMATURE GRAN PERCENT AUTO 0.5 % (0.0-0.7); MEAN CORPUSCULAR HEMOGLOBIN 30.1 pg (31.6-35.5); MEAN CORPUSCULAR HGB CONC 34.2 g/dL (31.6-35.5); NEUTROPHILS ABSOLUTE AUTO 8.26 K/uL (1.0-7.6); NEUTROPHILS PERCENT AUTO 71.9 % (40.0-78.1); PLATELET COUNT,PLT 331 K/uL (130-375); RED BLOOD CELL COUNT 4.25 M/uL (3.77-5.24); WHITE BLOOD CELL COUNT,WBC 11.5 K/uL (3.2-11.0)
[2023-11-08 10:49] LABS: CALCIUM 9.2 mg/dL (8.5-10.1); EST CRCL DRUG DOSING (CG) 44.08 mL/min; POTASSIUM,K 3.5 mmol/L (3.6-5.2)
[2023-11-08 10:51] LABS: ANION GAP 17.5 mmol/L (5.0-14.0)
[2023-11-08] MEDS: LORazepam 2 MG/ML SDV IVPUSH ONE ×2 (11:14→18:43)
[2023-11-08] MEDS ORDERED: HYDROmorphone 1 MG/ML Syringe IVPUSH ONE (17:00)
[2023-11-08] MEDS: Ondansetron 4 MG/2 ML SDV IVPUSH ONE (17:35)
[2023-11-08] MEDS: Morphine 2 MG/ML SYRINGE IVPUSH ONE (17:37)
[2023-11-08 17:56] VITALS: BP 139/85; PULSE 78
== END 2023-11-08 18:45 ==
LOC: JP.ED 13:24
DX: R10.13 Epigastric pain (principal); Z88.6 Allergy status to analgesic agent; Z91.048 Other nonmedicinal substance allergy status; Z88.2 Allergy status to sulfonamides; Z88.8 Allergy status to other drugs, medicaments and biological substances; Z91.018 Allergy to other foods; Z79.899 Other long term (current) drug therapy; Z90.49 Acquired absence of other specified parts of digestive tract
CPT/HCPCS: 36415; 71260; 74177; 80048; 80053; 81001; 83605; 83690; 84484; 85025; 85610; 85730; 93005; 96361; 96374; 96375; 96376; 99285; J0780; J2060; J2270; J2405; J2470; J3490; J7030

== ENCOUNTER 2023-11-12 19:58 | Emergency (ER) | payer MEDICAID ==
[2023-11-12 21:24] LABS: BASOPHILS ABSOLUTE AUTO 0.03 K/uL (0.00-0.10); BASOPHILS PERCENT AUTO 0.4 % (0.1-1.3); EOSINOPHILS ABSOLUTE AUTO 0.04 K/uL (0.00-0.40); EOSINOPHILS PERCENT AUTO 0.5 % (0.0-5.4); HEMATOCRIT 33.6 % (34.3-46.0); HEMOGLOBIN 12.2 g/dL (11.2-15.5); IMMATURE GRAN ABSOLUTE AUTO 0.04 K/uL (0.00-0.23); IMMATURE GRAN PERCENT AUTO 0.5 % (0.0-0.7); LYMPHOCYTES ABSOLUTE AUTO 0.82 K/uL (0.8-3.3); LYMPHOCYTES PERCENT AUTO 10.4 % (11.4-47.7); MEAN CORPUSCULAR HEMOGLOBIN 30.4 pg (31.6-35.5); MEAN CORPUSCULAR HGB CONC 36.3 g/dL (31.6-35.5); MEAN CORPUSCULAR VOLUME 83.8 fL (81.4-99.0); MONOCYTES ABSOLUTE AUTO 0.41 K/uL (0.20-0.90); MONOCYTES PERCENT AUTO 5.2 % (3.3-12.6); NEUTROPHILS ABSOLUTE AUTO 6.54 K/uL (1.0-7.6); PLATELET COUNT,PLT 311 K/uL (130-375); RED BLOOD CELL COUNT 4.01 M/uL (3.77-5.24); WHITE BLOOD CELL COUNT,WBC 7.9 K/uL (3.2-11.0)
[2023-11-12 21:44] LABS: A/G RATIO 1.3 (1.2-2.2); ALANINE AMINOTRANSFERASE,ALT 16 U/L (12-78); ALKALINE PHOSPHATASE 87 U/L (46-116); ASPARTATE AMNIOTRANSFERASE,AST 13 U/L (15-37); BILIRUBIN TOTAL 1.3 mg/dL (0.2-1.0); BLOOD UREA NITROGEN,BUN 16 mg/dL (7-18); CALCIUM 9.1 mg/dL (8.5-10.1); CARBON DIOXIDE,CO2 18 mmol/L (21-32); CHLORIDE,CL 99 mmol/L (100-108); EST CRCL DRUG DOSING (CG) 41.38 mL/min; ESTIMATED GFR 66 mL/min (>60); GLUCOSE RANDOM 129 mg/dL (74-106); PROTEIN TOTAL,TP 7.1 g/dL (6.4-8.2); SODIUM,NA 136 mmol/L (140-148)
[2023-11-12 21:46] LABS: ANION GAP 21.7 mmol/L (5.0-14.0); POTASSIUM,K 2.7 mmol/L (3.6-5.2)
[2023-11-12] MEDS ORDERED: Potassium Chloride 20 MEQ in Premix Bag 1 BAG IV ONE (21:50)
[2023-11-12] MEDS: Lactated Ringers 1,000 ML IV ONE (21:56)
[2023-11-12] MEDS: Prochlorperazine 10 MG/2 ML SDV IVPUSH ONE (21:58)
[2023-11-12] MEDS: Morphine 2 MG/ML SYRINGE IVPUSH ONE (22:04)
[2023-11-12] MEDS: LORazepam 2 MG/ML SDV IVPUSH ONE (22:10)
[2023-11-12] MEDS: Sodium Chloride 0.9% 10 ML Syringe FLUSH PRN (22:17)
[2023-11-12] MEDS: Potassium Chloride 10 MEQ in Premix Bag 2 BAG IV ONE (23:08)
[2023-11-13] MEDS: Potassium Chloride 10 MEQ in Premix Bag 1 BAG IV ONE (00:26)
[2023-11-13] MEDS: LORazepam 2 MG/ML SDV IVPUSH ONE (03:11)
[2023-11-13 03:34] VITALS: BP 107/70; PULSE 86
== END 2023-11-13 03:25 | disposition home or self-care (01) ==
LOC: JP.ED 19:58
DX: R11.2 Nausea with vomiting, unspecified (principal); Z88.2 Allergy status to sulfonamides; Z88.8 Allergy status to other drugs, medicaments and biological substances; Z91.018 Allergy to other foods; Z91.048 Other nonmedicinal substance allergy status; Z79.899 Other long term (current) drug therapy; Z90.49 Acquired absence of other specified parts of digestive tract
CPT/HCPCS: 36415; 80053; 83605; 84132; 85025; 96361; 96365; 96366; 96375; 96376; 99284; J0780; J2060; J2270; J3480; J3490; J7120; 99283

== ENCOUNTER 2023-11-15 10:28 | Emergency (ER) | payer MEDICAID ==
[2023-11-15 11:47] LABS: BASOPHILS PERCENT AUTO 0.2 % (0.1-1.3); EOSINOPHILS ABSOLUTE AUTO 0.05 K/uL (0.00-0.40); EOSINOPHILS PERCENT AUTO 0.4 % (0.0-5.4); HEMATOCRIT 36.3 % (34.3-46.0); IMMATURE GRAN ABSOLUTE AUTO 0.07 K/uL (0.00-0.23); IMMATURE GRAN PERCENT AUTO 0.5 % (0.0-0.7); LYMPHOCYTES ABSOLUTE AUTO 1.79 K/uL (0.8-3.3); MEAN CORPUSCULAR HEMOGLOBIN 30.5 pg (31.6-35.5); MEAN CORPUSCULAR HGB CONC 35.8 g/dL (31.6-35.5); MEAN CORPUSCULAR VOLUME 85.2 fL (81.4-99.0); MONOCYTES ABSOLUTE AUTO 1.04 K/uL (0.20-0.90); MONOCYTES PERCENT AUTO 8.1 % (3.3-12.6); NEUTROPHILS ABSOLUTE AUTO 9.85 K/uL (1.0-7.6); NEUTROPHILS PERCENT AUTO 76.8 % (40.0-78.1); PLATELET COUNT,PLT 308 K/uL (130-375); RED BLOOD CELL COUNT 4.26 M/uL (3.77-5.24); WHITE BLOOD CELL COUNT,WBC 12.8 K/uL (3.2-11.0)
[2023-11-15] MEDS: droPERidol 5 MG/2 ML SDV IVPUSH ONE (11:47)
[2023-11-15] MEDS: Sodium Chloride 0.9% 1,000 ML IV ONE (11:48)
[2023-11-15 11:54] LABS: BASOPHILS ABSOLUTE AUTO 0.02 K/uL (0.00-0.10)
[2023-11-15 12:07] LABS: A/G RATIO 1.2 (1.2-2.2); ALANINE AMINOTRANSFERASE,ALT 13 U/L (12-78); ALBUMIN 3.7 g/dL (3.4-5.0); ALKALINE PHOSPHATASE 90 U/L (46-116); ASPARTATE AMNIOTRANSFERASE,AST 12 U/L (15-37); BILIRUBIN TOTAL 1.4 mg/dL (0.2-1.0); BLOOD UREA NITROGEN,BUN 13 mg/dL (7-18); CALCIUM 8.7 mg/dL (8.5-10.1); CARBON DIOXIDE,CO2 25 mmol/L (21-32); CHLORIDE,CL 97 mmol/L (100-108); CREATININE 0.7 mg/dL (0.6-1.0); EST CRCL DRUG DOSING (CG) 57.19 mL/min; ESTIMATED GFR 101 mL/min (>60); GLUCOSE RANDOM 123 mg/dL (74-106); POTASSIUM,K 3.2 mmol/L (3.6-5.2); PROTEIN TOTAL,TP 6.7 g/dL (6.4-8.2); SODIUM,NA 131 mmol/L (140-148)
[2023-11-15 12:09] LABS: ANION GAP 12.2 mmol/L (5.0-14.0)
[2023-11-15] MEDS: Potassium Chloride 10 MEQ in Premix Bag 1 BAG IV ONE (13:03)
[2023-11-15 15:18] VITALS: BP 130/83; PULSE 94
== END 2023-11-15 15:17 ==
LOC: JP.ED 10:28
DX: R10.84 Generalized abdominal pain (principal); E87.6 Hypokalemia; J45.909 Unspecified asthma, uncomplicated; Z90.49 Acquired absence of other specified parts of digestive tract; Z79.899 Other long term (current) drug therapy; Z91.048 Other nonmedicinal substance allergy status; Z88.2 Allergy status to sulfonamides; Z88.5 Allergy status to narcotic agent; Z88.8 Allergy status to other drugs, medicaments and biological substances
CPT/HCPCS: 36415; 74018; 80053; 83605; 85025; 96361; 96365; 96366; 96375; 99285; J1790; J3480; J7030

== ENCOUNTER 2023-11-26 10:26 | Emergency (ER) | payer MEDICAID ==
[2023-11-26 11:31] LABS: BASOPHILS PERCENT AUTO 0.1 % (0.1-1.3); HEMATOCRIT 27.2 % (34.3-46.0); HEMOGLOBIN 9.8 g/dL (11.2-15.5); IMMATURE GRAN ABSOLUTE AUTO 0.15 K/uL (0.00-0.23); IMMATURE GRAN PERCENT AUTO 0.9 % (0.0-0.7); LYMPHOCYTES ABSOLUTE AUTO 1.05 K/uL (0.8-3.3); LYMPHOCYTES PERCENT AUTO 6.1 % (11.4-47.7); MEAN CORPUSCULAR HEMOGLOBIN 30.5 pg (31.6-35.5); MEAN CORPUSCULAR VOLUME 84.7 fL (81.4-99.0); MONOCYTES ABSOLUTE AUTO 0.85 K/uL (0.20-0.90); MONOCYTES PERCENT AUTO 4.9 % (3.3-12.6); PLATELET COUNT,PLT 468 K/uL (130-375); RED BLOOD CELL COUNT 3.21 M/uL (3.77-5.24); WHITE BLOOD CELL COUNT,WBC 17.3 K/uL (3.2-11.0)
[2023-11-26 11:33] LABS: BASOPHILS ABSOLUTE AUTO 0.01 K/uL (0.00-0.10)
[2023-11-26 11:46] LABS: CALCIUM 8.6 mg/dL (8.5-10.1); CREATININE 0.9 mg/dL (0.6-1.0); EST CRCL DRUG DOSING (CG) 41.98 mL/min; POTASSIUM,K 3.4 mmol/L (3.6-5.2)
[2023-11-26 11:47] LABS: ANION GAP 16.4 mmol/L (5.0-14.0)
[2023-11-26] MEDS: Morphine 2 MG/ML SYRINGE IVPUSH ONE (12:19)
[2023-11-26] MEDS: Sodium Chloride 0.9% 1,000 ML IV ONE (12:20)
[2023-11-26] MEDS: Potassium Chloride 10 MEQ in Premix Bag 1 BAG IV ONE (12:21)
[2023-11-26 14:42] VITALS: BP 95/62; PULSE 36
[2023-11-26] MEDS: Sodium Chloride 0.9% 100 ML IV SCH (15:09)
[2023-11-26] MEDS: Iopamidol 612 MG/ML 100 ML Bottle IV SCH (15:09)
[2023-11-26] MEDS: Sodium Chloride 0.9% 10 ML Syringe FLUSH PRN (15:10)
== END 2023-11-26 15:34 | disposition home or self-care (01) ==
LOC: JP.ED 10:26
DX: K52.9 Noninfective gastroenteritis and colitis, unspecified (principal); J45.909 Unspecified asthma, uncomplicated; K21.9 Gastro-esophageal reflux disease without esophagitis; Z79.899 Other long term (current) drug therapy; Z88.2 Allergy status to sulfonamides; Z91.048 Other nonmedicinal substance allergy status; Z88.6 Allergy status to analgesic agent; Z88.8 Allergy status to other drugs, medicaments and biological substances; Z91.018 Allergy to other foods
CPT/HCPCS: 36415; 74177; 80048; 83605; 84145; 85025; 96365; 96375; 99283; 99284; J2270; J3480; J3490; J7030; Q9967

== ENCOUNTER 2023-11-30 14:04 | Inpatient (IN) | payer MEDICAID ==
[2023-11-30] MEDS ORDERED: Sodium Chloride 0.9% 10 ML Syringe FLUSH PRN (14:43)
[2023-11-30] MEDS ORDERED: Naloxone 0.4 MG/ML SDV IVPUSH PRN (14:49)
[2023-11-30] MEDS: Sodium Chloride 0.9% 1,000 ML IV ONE (15:00)
[2023-11-30 15:02] LABS: BASOPHILS PERCENT AUTO 0.2 % (0.1-1.3); EOSINOPHILS PERCENT AUTO 0.2 % (0.0-5.4); HEMATOCRIT 18.3 % (34.3-46.0); IMMATURE GRAN ABSOLUTE AUTO 0.05 K/uL (0.00-0.23); IMMATURE GRAN PERCENT AUTO 0.5 % (0.0-0.7); LYMPHOCYTES ABSOLUTE AUTO 1.16 K/uL (0.8-3.3); MEAN CORPUSCULAR HEMOGLOBIN 29.6 pg (31.6-35.5); MEAN CORPUSCULAR HGB CONC 34.4 g/dL (31.6-35.5); MEAN CORPUSCULAR VOLUME 85.9 fL (81.4-99.0); MONOCYTES ABSOLUTE AUTO 0.55 K/uL (0.20-0.90); MONOCYTES PERCENT AUTO 5.7 % (3.3-12.6); NEUTROPHILS ABSOLUTE AUTO 7.87 K/uL (1.0-7.6); NEUTROPHILS PERCENT AUTO 81.4 % (40.0-78.1); PLATELET COUNT,PLT 441 K/uL (130-375); RED BLOOD CELL COUNT 2.13 M/uL (3.77-5.24); WHITE BLOOD CELL COUNT,WBC 9.7 K/uL (3.2-11.0)
[2023-11-30] MEDS: Morphine 2 MG/ML SYRINGE IVPUSH ONE (15:04)
[2023-11-30 15:13] LABS: BASOPHILS ABSOLUTE AUTO 0.02 K/uL (0.00-0.10); EOSINOPHILS ABSOLUTE AUTO 0.02 K/uL (0.00-0.40); HEMOGLOBIN 6.3 g/dL (11.2-15.5)
[2023-11-30] MEDS ORDERED: Iopamidol 612 MG/ML 100 ML Bottle IV SCH (15:15)
[2023-11-30] MEDS ORDERED: Sodium Chloride 0.9% 80 ML IV SCH (15:15)
[2023-11-30 15:22] LABS: A/G RATIO 0.8 (1.2-2.2); ALANINE AMINOTRANSFERASE,ALT 8 U/L (12-78); ALBUMIN 2.5 g/dL (3.4-5.0); ALKALINE PHOSPHATASE 74 U/L (46-116); ASPARTATE AMNIOTRANSFERASE,AST 9 U/L (15-37); BILIRUBIN TOTAL 0.3 mg/dL (0.2-1.0); BLOOD UREA NITROGEN,BUN 11 mg/dL (7-18); CALCIUM 8.9 mg/dL (8.5-10.1); CARBON DIOXIDE,CO2 24 mmol/L (21-32); CHLORIDE,CL 95 mmol/L (100-108); CREATININE 0.7 mg/dL (0.6-1.0); EST CRCL DRUG DOSING (CG) 54.62 mL/min; ESTIMATED GFR 101 mL/min (>60); GLUCOSE RANDOM 103 mg/dL (74-106); MAGNESIUM 1.6 mg/dL (1.8-2.4); PROTEIN TOTAL,TP 5.7 g/dL (6.4-8.2); SODIUM,NA 132 mmol/L (140-148)
[2023-11-30 15:25] LABS: ANION GAP 15.7 mmol/L (5.0-14.0); POTASSIUM,K 2.7 mmol/L (3.6-5.2)
[2023-11-30] MEDS: Sodium Chloride 0.9% 80 ML IV SCH (15:55)
[2023-11-30] MEDS: Iopamidol 612 MG/ML 100 ML Bottle IV SCH (15:56)
[2023-11-30] MEDS: Morphine 4 MG/ML Syringe IVPUSH PRN (16:10)
[2023-11-30] MEDS: Pantoprazole 40 MG Vial IVPUSH ONE (16:39)
[2023-11-30] MEDS: Sodium Chloride 0.9% 1,000 ML IV SCH (16:40)
[2023-11-30] MEDS: Potassium Chloride 10 MEQ in Premix Bag 1 BAG IV SCH (16:50)
[2023-11-30] MEDS: Piperacillin/Tazobactam 4.5 GM in Sodium Chloride 0.9% 100 ML IV ONE (17:30)
[2023-11-30] MEDS ORDERED: Acetaminophen 325 MG Tab PO PRN (17:45)
[2023-11-30] MEDS ORDERED: Ondansetron 4 MG Tab.DIS PO PRN (17:45)
[2023-11-30] MEDS: LORazepam 2 MG/ML SDV IVPUSH PRN (18:13)
[2023-11-30] MEDS: Potassium Chloride 100 ML ONE (20:18)
[2023-11-30] MEDS: Piperacillin/Tazobactam 4.5 GM in Sodium Chloride 0.9% 100 ML IV SCH (21:29)
[2023-12-01 00:39] LABS: AMORPHOUS SEDIMENT,URINE NOT SEEN; APPEARANCE,URINE SLIGHTLY CLOUDY (CLEAR); BACTERIA,URINE FEW; BILIRUBIN,URINE NEGATIVE (NEGATIVE); COLOR,URINE YELLOW (YELLOW); EPITHELIAL CELLS,URINE FEW; GLUCOSE,URINE NEGATIVE (NEGATIVE); KETONES,URINE 40 mg/dL (NEGATIVE); LEUKOCYTE ESTERASE,URINE NEGATIVE (NEGATIVE); MUCUS,URINE NOT SEEN; NITRITE,URINE NEGATIVE (NEGATIVE); OCCULT BLOOD,URINE TRACE-INTACT (NEGATIVE); PROTEIN,URINE NEGATIVE (NEGATIVE); RBC,URINE 0-5 (0-5); UROBILINOGEN,URINE 0.2 EU/dL (0.2-1.0); WBC,URINE 0-5 (0-5)
[2023-12-01] MEDS: Pantoprazole 40 MG Vial IV SCH (04:50)
[2023-12-01 04:58] LABS: HEMATOCRIT 24.1 % (34.3-46.0); HEMOGLOBIN 8.4 g/dL (11.2-15.5); MEAN CORPUSCULAR HEMOGLOBIN 30.3 pg (31.6-35.5); MEAN CORPUSCULAR HGB CONC 34.9 g/dL (31.6-35.5); RED BLOOD CELL COUNT 2.77 M/uL (3.77-5.24); WHITE BLOOD CELL COUNT,WBC 7.2 K/uL (3.2-11.0)
[2023-12-01 05:17] LABS: CALCIUM 8.3 mg/dL (8.5-10.1); CREATININE 0.7 mg/dL (0.6-1.0); EST CRCL DRUG DOSING (CG) 61.82 mL/min; POTASSIUM,K 3.7 mmol/L (3.6-5.2)
[2023-12-01 05:21] LABS: ANION GAP 13.7 mmol/L (5.0-14.0)
[2023-12-01] MEDS: Citalopram 20 MG Tab PO SCH (08:32)
[2023-12-01] MEDS: Morphine 4 MG/ML Syringe IVPUSH PRN (09:11)
[2023-12-01] MEDS: Potassium Chloride 10 MEQ in Premix Bag 1 BAG IV SCH (10:17)
[2023-12-01] MEDS: Sodium Chloride 0.9% 1,000 ML IV SCH (10:18)
[2023-12-01] MEDS: Piperacillin/Tazobactam/Dext 4.5 GM in Premix Bag 1 BAG IV SCH (13:18)
[2023-12-02 04:51] LABS: HEMATOCRIT 24.1 % (34.3-46.0); HEMOGLOBIN 8.4 g/dL (11.2-15.5); MEAN CORPUSCULAR HEMOGLOBIN 30.3 pg (31.6-35.5); MEAN CORPUSCULAR HGB CONC 34.9 g/dL (31.6-35.5); RED BLOOD CELL COUNT 2.77 M/uL (3.77-5.24); WHITE BLOOD CELL COUNT,WBC 5.5 K/uL (3.2-11.0)
[2023-12-02 05:08] LABS: CALCIUM 8.4 mg/dL (8.5-10.1); CREATININE 0.7 mg/dL (0.6-1.0); EST CRCL DRUG DOSING (CG) 60.27 mL/min; POTASSIUM,K 3.7 mmol/L (3.6-5.2)
[2023-12-02 05:14] LABS: ANION GAP 11.7 mmol/L (5.0-14.0)
[2023-12-02] MEDS ORDERED: Acetaminophen/oxyCODONE 325-5 MG Tab PO PRN (09:49)
[2023-12-02] MEDS: Sodium Ferric Gluconate Cmplex 250 MG in Sodium Chloride 0.9% 100 ML IV ONE (10:39)
[2023-12-02] MEDS: LORazepam 1 MG Tab PO PRN (16:21)
[2023-12-02] MEDS: Pantoprazole 40 MG Delayed-Release Granules 1 Packet PO SCH (16:21)
[2023-12-02] MEDS: Ondansetron 4 MG/2 ML SDV IV PRN (17:59)
[2023-12-03 05:31] VITALS: BP 124/75; PULSE 65
[2023-12-03 06:12] LABS: HEMATOCRIT 26.4 % (34.3-46.0); HEMOGLOBIN 9.6 g/dL (11.2-15.5); MEAN CORPUSCULAR HEMOGLOBIN 31.1 pg (31.6-35.5); MEAN CORPUSCULAR HGB CONC 36.4 g/dL (31.6-35.5); MEAN CORPUSCULAR VOLUME 85.4 fL (81.4-99.0); RED BLOOD CELL COUNT 3.09 M/uL (3.77-5.24); WHITE BLOOD CELL COUNT,WBC 5.6 K/uL (3.2-11.0)
[2023-12-03 06:25] LABS: CALCIUM 8.8 mg/dL (8.5-10.1); CREATININE 0.8 mg/dL (0.6-1.0); EST CRCL DRUG DOSING (CG) 50.66 mL/min; POTASSIUM,K 3.1 mmol/L (3.6-5.2)
[2023-12-03 06:47] LABS: ANION GAP 13.1 mmol/L (5.0-14.0)
[2023-12-03] MEDS: Potassium Chloride 20 MEQ Tab.ER PO ONE (09:05)
== END 2023-12-03 12:05 | disposition home or self-care (01) | DRG 812 ==
LOC: JP.ED 14:04 → JP.ICU 17:18
PROVIDERS: ADMIT Internal Medicine; ATTEND Internal Medicine
PROC: 30233N1 Transfusion of Nonautologous Red Blood Cells into Peripheral Vein, Percutaneous Approach (ICD-10-PCS; principal; 2023-11-30)
DX: D62 Acute posthemorrhagic anemia (principal); K52.9 Noninfective gastroenteritis and colitis, unspecified; F41.0 Panic disorder [episodic paroxysmal anxiety]; F32.A Depression, unspecified; D50.9 Iron deficiency anemia, unspecified; G89.29 Other chronic pain; M54.9 Dorsalgia, unspecified; M54.2 Cervicalgia; M19.90 Unspecified osteoarthritis, unspecified site; J45.909 Unspecified asthma, uncomplicated; K59.09 Other constipation; K21.9 Gastro-esophageal reflux disease without esophagitis; E87.6 Hypokalemia; Z88.2 Allergy status to sulfonamides; Z88.8 Allergy status to other drugs, medicaments and biological substances; Z88.6 Allergy status to analgesic agent; Z90.49 Acquired absence of other specified parts of digestive tract; Z98.51 Tubal ligation status; Z87.11 Personal history of peptic ulcer disease; Z79.899 Other long term (current) drug therapy; Z86.010 Personal history of colon polyps; Z98.890 Other specified postprocedural states; Z87.442 Personal history of urinary calculi; Z98.84 Bariatric surgery status
CPT/HCPCS: 36415; 36430; 74177; 80048; 80053; 81001; 83605; 83735; 84132; 85018; 85025; 85027; 86140; 86850; 86900; 86901; 86920; 86922; 96361; 96365; 96375; 96376; 99222; 99232; 99238; 99285; 99285-25; A9270-GY; J2060; J2270; J2405; J2470; J2543; J2916; J3480; J3490; J7030; P9016; Q9967

== ENCOUNTER 2023-12-07 10:50 | Inpatient (IN) | payer MEDICAID ==
[2023-12-07] MEDS ORDERED: Naloxone 0.4 MG/ML SDV IVPUSH PRN (12:12)
[2023-12-07] MEDS: Prochlorperazine 10 MG/2 ML SDV IVPUSH ONE (12:38)
[2023-12-07] MEDS: Sodium Chloride 0.9% 10 ML Syringe FLUSH PRN (12:39)
[2023-12-07] MEDS: Sodium Chloride 0.9% 1,000 ML IV ONE (12:40)
[2023-12-07] MEDS: Morphine 2 MG/ML SYRINGE IVPUSH ONE ×2 (12:40→13:32)
[2023-12-07 12:41] LABS: BASOPHILS PERCENT AUTO 0.1 % (0.1-1.3); EOSINOPHILS PERCENT AUTO 0.1 % (0.0-5.4); HEMATOCRIT 31.3 % (34.3-46.0); HEMOGLOBIN 10.9 g/dL (11.2-15.5); IMMATURE GRAN ABSOLUTE AUTO 0.13 K/uL (0.00-0.23); IMMATURE GRAN PERCENT AUTO 0.8 % (0.0-0.7); LYMPHOCYTES PERCENT AUTO 9.7 % (11.4-47.7); MEAN CORPUSCULAR HEMOGLOBIN 30.6 pg (31.6-35.5); MEAN CORPUSCULAR HGB CONC 34.8 g/dL (31.6-35.5); MEAN CORPUSCULAR VOLUME 87.9 fL (81.4-99.0); MONOCYTES PERCENT AUTO 5.2 % (3.3-12.6); NEUTROPHILS ABSOLUTE AUTO 12.97 K/uL (1.0-7.6); NEUTROPHILS PERCENT AUTO 84.1 % (40.0-78.1); PLATELET COUNT,PLT 821 K/uL (130-375); RED BLOOD CELL COUNT 3.56 M/uL (3.77-5.24); WHITE BLOOD CELL COUNT,WBC 15.4 K/uL (3.2-11.0)
[2023-12-07 12:43] LABS: BASOPHILS ABSOLUTE AUTO 0.02 K/uL (0.00-0.10); EOSINOPHILS ABSOLUTE AUTO 0.02 K/uL (0.00-0.40)
[2023-12-07 13:02] LABS: INR 0.9; PROTHROMBIN TIME 9.7 sec (9.2-10.6); PTT,PARTIAL THROMBOPLSTIN TIME 27.4 sec (21.8-27.3)
[2023-12-07 13:03] LABS: A/G RATIO 0.7 (1.2-2.2); ALANINE AMINOTRANSFERASE,ALT 10 U/L (12-78); ALKALINE PHOSPHATASE 96 U/L (46-116); ASPARTATE AMNIOTRANSFERASE,AST 12 U/L (15-37); BILIRUBIN TOTAL 0.6 mg/dL (0.2-1.0); BLOOD UREA NITROGEN,BUN 20 mg/dL (7-18); CALCIUM 9.7 mg/dL (8.5-10.1); CARBON DIOXIDE,CO2 17 mmol/L (21-32); CHLORIDE,CL 97 mmol/L (100-108); CREATININE 0.8 mg/dL (0.6-1.0); EST CRCL DRUG DOSING (CG) 46.67 mL/min; ESTIMATED GFR 86 mL/min (>60); GLUCOSE RANDOM 111 mg/dL (74-106); PROTEIN TOTAL,TP 7.1 g/dL (6.4-8.2); SODIUM,NA 132 mmol/L (140-148)
[2023-12-07 13:07] LABS: PHOSPHORUS 2.7 mg/dL (2.5-4.9)
[2023-12-07] MEDS: Sodium Chloride 0.9% 80 ML IV SCH (13:10)
[2023-12-07] MEDS: Sodium Chloride 0.9% 10 ML Syringe FLUSH ONE (13:10)
[2023-12-07] MEDS: Iopamidol 612 MG/ML 100 ML Bottle IV SCH (13:10)
[2023-12-07] MEDS ORDERED: Magnesium Hydroxide 400 MG/5 ML Susp 30 ML Cup PO PRN (14:46)
[2023-12-07] MEDS ORDERED: Ondansetron 4 MG Tab.DIS PO PRN (14:46)
[2023-12-07 15:15] LABS: APPEARANCE,URINE CLEAR (CLEAR); BILIRUBIN,URINE NEGATIVE (NEGATIVE); COLOR,URINE YELLOW (YELLOW); GLUCOSE,URINE NEGATIVE (NEGATIVE); KETONES,URINE 15 mg/dL (NEGATIVE); LEUKOCYTE ESTERASE,URINE NEGATIVE (NEGATIVE); NITRITE,URINE NEGATIVE (NEGATIVE); OCCULT BLOOD,URINE TRACE-LYSED (NEGATIVE); PH,URINE 5.5 (5.0-8.0); PROTEIN,URINE NEGATIVE (NEGATIVE); UROBILINOGEN,URINE 0.2 EU/dL (0.2-1.0)
[2023-12-07] MEDS ORDERED: Levalbuterol HCl 1.25 MG/3 ML Neb NEB PRN (15:19)
[2023-12-07 15:21] LABS: AMORPHOUS SEDIMENT,URINE NOT SEEN; BACTERIA,URINE NOT SEEN; EPITHELIAL CELLS,URINE FEW; MUCUS,URINE NOT SEEN; RBC,URINE 0-5 (0-5); WBC,URINE 0-5 (0-5)
[2023-12-07] MEDS: Piperacillin/Tazobactam/Dext 4.5 GM in Premix Bag 1 BAG IV ONE (15:54)
[2023-12-07] MEDS: Morphine 2 MG/ML SYRINGE IVPUSH PRN (15:54)
[2023-12-07] MEDS: Sodium Chloride 0.9% 1,000 ML IV SCH (15:55)
[2023-12-07] MEDS ORDERED: Piperacillin/Tazobactam 4.5 GM in Sodium Chloride 0.9% 100 ML IV SCH (16:00)
[2023-12-07] MEDS: Potassium Chloride 10% 20 MEQ/15 ML Soln 15 ML UD Cup PO SCH (16:23)
[2023-12-07] MEDS: Acetaminophen 325 MG Tab PO PRN (18:10)
[2023-12-07] MEDS: LORazepam 2 MG/ML SDV IVPUSH PRN (18:11)
[2023-12-07] MEDS: Piperacillin/Tazobactam/Dext 4.5 GM in Premix Bag 1 BAG IV SCH (20:33)
[2023-12-07] MEDS: Pantoprazole 40 MG Tab.CR PO SCH (20:36)
[2023-12-08] MEDS: Ondansetron 4 MG/2 ML SDV IV PRN (01:35)
[2023-12-08 04:51] LABS: HEMATOCRIT 26.3 % (34.3-46.0); HEMOGLOBIN 8.8 g/dL (11.2-15.5); MEAN CORPUSCULAR HEMOGLOBIN 30.2 pg (31.6-35.5); MEAN CORPUSCULAR HGB CONC 33.5 g/dL (31.6-35.5); MEAN CORPUSCULAR VOLUME 90.4 fL (81.4-99.0); RED BLOOD CELL COUNT 2.91 M/uL (3.77-5.24); WHITE BLOOD CELL COUNT,WBC 8.7 K/uL (3.2-11.0)
[2023-12-08 05:11] LABS: A/G RATIO 0.8 (1.2-2.2); ALANINE AMINOTRANSFERASE,ALT 161 U/L (12-78); ALBUMIN 2.5 g/dL (3.4-5.0); ALKALINE PHOSPHATASE 357 U/L (46-116); ASPARTATE AMNIOTRANSFERASE,AST 413 U/L (15-37); BILIRUBIN TOTAL 0.9 mg/dL (0.2-1.0); BLOOD UREA NITROGEN,BUN 11 mg/dL (7-18); C-REACTIVE PROTEIN 3.27 mg/dL (<0.50); CALCIUM 8.7 mg/dL (8.5-10.1); CARBON DIOXIDE,CO2 23 mmol/L (21-32); CHLORIDE,CL 103 mmol/L (100-108); CREATININE 0.8 mg/dL (0.6-1.0); ESTIMATED GFR 86 mL/min (>60); GLUCOSE RANDOM 112 mg/dL (74-106); POTASSIUM,K 3.7 mmol/L (3.6-5.2); PROTEIN TOTAL,TP 5.8 g/dL (6.4-8.2); SODIUM,NA 135 mmol/L (140-148)
[2023-12-08 05:14] LABS: ANION GAP 12.7 mmol/L (5.0-14.0)
[2023-12-08] MEDS: Cefepime 2 GM in Sodium Chloride 0.9% 50 ML IV SCH (09:24)
[2023-12-08] MEDS: Potassium Chloride 20 MEQ Tab.ER PO SCH (14:47)
[2023-12-08] MEDS: LORazepam 1 MG Tab PO PRN (18:34)
[2023-12-08] MEDS: Sennosides/Docusate Sodium 50-8.6 MG Tab PO PRN (19:25)
[2023-12-09 05:10] LABS: BASOPHILS PERCENT AUTO 0.2 % (0.1-1.3); EOSINOPHILS ABSOLUTE AUTO 0.05 K/uL (0.00-0.40); EOSINOPHILS PERCENT AUTO 0.5 % (0.0-5.4); HEMATOCRIT 21.5 % (34.3-46.0); HEMOGLOBIN 7.3 g/dL (11.2-15.5); IMMATURE GRAN ABSOLUTE AUTO 0.04 K/uL (0.00-0.23); IMMATURE GRAN PERCENT AUTO 0.4 % (0.0-0.7); LYMPHOCYTES ABSOLUTE AUTO 1.26 K/uL (0.8-3.3); LYMPHOCYTES PERCENT AUTO 13.8 % (11.4-47.7); MEAN CORPUSCULAR HEMOGLOBIN 30.8 pg (31.6-35.5); MEAN CORPUSCULAR VOLUME 90.7 fL (81.4-99.0); MONOCYTES ABSOLUTE AUTO 0.73 K/uL (0.20-0.90); NEUTROPHILS PERCENT AUTO 77.1 % (40.0-78.1); PLATELET COUNT,PLT 397 K/uL (130-375); RED BLOOD CELL COUNT 2.37 M/uL (3.77-5.24); WHITE BLOOD CELL COUNT,WBC 9.1 K/uL (3.2-11.0)
[2023-12-09 05:21] LABS: BASOPHILS ABSOLUTE AUTO 0.02 K/uL (0.00-0.10)
[2023-12-09 05:34] LABS: A/G RATIO 0.7 (1.2-2.2); ALANINE AMINOTRANSFERASE,ALT 68 U/L (12-78); ALBUMIN 2.2 g/dL (3.4-5.0); ALKALINE PHOSPHATASE 227 U/L (46-116); ASPARTATE AMNIOTRANSFERASE,AST 50 U/L (15-37); BILIRUBIN TOTAL 0.5 mg/dL (0.2-1.0); BLOOD UREA NITROGEN,BUN 6 mg/dL (7-18); CALCIUM 8.6 mg/dL (8.5-10.1); CARBON DIOXIDE,CO2 22 mmol/L (21-32); CHLORIDE,CL 105 mmol/L (100-108); CREATININE 0.7 mg/dL (0.6-1.0); EST CRCL DRUG DOSING (CG) 64.46 mL/min; ESTIMATED GFR 101 mL/min (>60); GLUCOSE RANDOM 103 mg/dL (74-106); POTASSIUM,K 3.8 mmol/L (3.6-5.2); PROTEIN TOTAL,TP 5.3 g/dL (6.4-8.2); SODIUM,NA 135 mmol/L (140-148)
[2023-12-09 05:35] LABS: ANION GAP 11.8 mmol/L (5.0-14.0)
[2023-12-10 05:07] LABS: BASOPHILS ABSOLUTE AUTO 0.03 K/uL (0.00-0.10); BASOPHILS PERCENT AUTO 0.5 % (0.1-1.3); EOSINOPHILS ABSOLUTE AUTO 0.09 K/uL (0.00-0.40); EOSINOPHILS PERCENT AUTO 1.6 % (0.0-5.4); HEMOGLOBIN 8.6 g/dL (11.2-15.5); IMMATURE GRAN ABSOLUTE AUTO 0.04 K/uL (0.00-0.23); IMMATURE GRAN PERCENT AUTO 0.7 % (0.0-0.7); LYMPHOCYTES ABSOLUTE AUTO 1.09 K/uL (0.8-3.3); LYMPHOCYTES PERCENT AUTO 19.5 % (11.4-47.7); MEAN CORPUSCULAR HEMOGLOBIN 30.5 pg (31.6-35.5); MEAN CORPUSCULAR HGB CONC 34.4 g/dL (31.6-35.5); MEAN CORPUSCULAR VOLUME 88.7 fL (81.4-99.0); MONOCYTES ABSOLUTE AUTO 0.48 K/uL (0.20-0.90); MONOCYTES PERCENT AUTO 8.6 % (3.3-12.6); NEUTROPHILS ABSOLUTE AUTO 3.86 K/uL (1.0-7.6); NEUTROPHILS PERCENT AUTO 69.1 % (40.0-78.1); PLATELET COUNT,PLT 402 K/uL (130-375); RED BLOOD CELL COUNT 2.82 M/uL (3.77-5.24); WHITE BLOOD CELL COUNT,WBC 5.6 K/uL (3.2-11.0)
[2023-12-10 05:31] LABS: A/G RATIO 0.7 (1.2-2.2); ALANINE AMINOTRANSFERASE,ALT 47 U/L (12-78); ALBUMIN 2.3 g/dL (3.4-5.0); ALKALINE PHOSPHATASE 199 U/L (46-116); ASPARTATE AMNIOTRANSFERASE,AST 24 U/L (15-37); BILIRUBIN TOTAL 0.6 mg/dL (0.2-1.0); BLOOD UREA NITROGEN,BUN 6 mg/dL (7-18); CARBON DIOXIDE,CO2 24 mmol/L (21-32); CHLORIDE,CL 102 mmol/L (100-108); CREATININE 0.8 mg/dL (0.6-1.0); ESTIMATED GFR 86 mL/min (>60); GLUCOSE RANDOM 96 mg/dL (74-106); POTASSIUM,K 3.9 mmol/L (3.6-5.2); PROTEIN TOTAL,TP 5.7 g/dL (6.4-8.2); SODIUM,NA 138 mmol/L (140-148)
[2023-12-10 05:34] LABS: ANION GAP 15.9 mmol/L (5.0-14.0)
[2023-12-10] MEDS: Potassium Chloride 10% 20 MEQ/15 ML Soln 15 ML UD Cup PO SCH (09:55)
[2023-12-10 11:22] VITALS: BP 96/63; PULSE 83
== END 2023-12-10 13:00 | disposition home or self-care (01) | DRG 391 ==
LOC: JP.ED 10:50 → JP.MS 14:23
PROVIDERS: ADMIT Hospitalist; ATTEND Hospitalist
PROC: 30233N1 Transfusion of Nonautologous Red Blood Cells into Peripheral Vein, Percutaneous Approach (ICD-10-PCS; principal; 2023-12-09)
DX: A09 Infectious gastroenteritis and colitis, unspecified (principal); E43 Unspecified severe protein-calorie malnutrition; E87.1 Hypo-osmolality and hyponatremia; K21.9 Gastro-esophageal reflux disease without esophagitis; F41.9 Anxiety disorder, unspecified; K59.09 Other constipation; J45.909 Unspecified asthma, uncomplicated; M19.90 Unspecified osteoarthritis, unspecified site; M54.2 Cervicalgia; G89.29 Other chronic pain; F32.A Depression, unspecified; E87.8 Other disorders of electrolyte and fluid balance, not elsewhere classified; D75.839 Thrombocytosis, unspecified; D64.9 Anemia, unspecified; D72.829 Elevated white blood cell count, unspecified; R74.01 Elevation of levels of liver transaminase levels; Z95.828 Presence of other vascular implants and grafts; Z98.84 Bariatric surgery status; Z87.19 Personal history of other diseases of the digestive system; Z98.51 Tubal ligation status; Z90.49 Acquired absence of other specified parts of digestive tract; Z98.890 Other specified postprocedural states; Z88.8 Allergy status to other drugs, medicaments and biological substances; Z91.048 Other nonmedicinal substance allergy status; Z88.2 Allergy status to sulfonamides; Z79.899 Other long term (current) drug therapy; Z79.51 Long term (current) use of inhaled steroids; Z79.2 Long term (current) use of antibiotics; Z79.52 Long term (current) use of systemic steroids; Z86.010 Personal history of colon polyps; Z87.442 Personal history of urinary calculi; Z90.89 Acquired absence of other organs; Z98.82 Breast implant status; Z68.37 Body mass index [BMI] 37.0-37.9, adult
CPT/HCPCS: 36415; 36430; 74177; 74177-26; 80053; 81001; 83605; 83690; 83735; 84100; 85018; 85025; 85027; 85610; 85730; 86140; 86850; 86900; 86901; 86920; 86922; 96361; 96374; 96375; 96376; 99223; 99231; 99232; 99239; 99285-25; A9270-GY; J0692; J0780; J2060; J2270; J2405; J2543; J3490; J7030; P9016; Q9967

== ENCOUNTER 2023-12-14 16:23 | Emergency (ER) | payer MEDICAID ==
[2023-12-14 17:59] LABS: BASOPHILS ABSOLUTE AUTO 0.03 K/uL (0.00-0.10); BASOPHILS PERCENT AUTO 0.3 % (0.1-1.3); EOSINOPHILS PERCENT AUTO 0.1 % (0.0-5.4); HEMOGLOBIN 9.2 g/dL (11.2-15.5); IMMATURE GRAN ABSOLUTE AUTO 0.08 K/uL (0.00-0.23); IMMATURE GRAN PERCENT AUTO 0.7 % (0.0-0.7); LYMPHOCYTES ABSOLUTE AUTO 1.04 K/uL (0.8-3.3); LYMPHOCYTES PERCENT AUTO 9.1 % (11.4-47.7); MEAN CORPUSCULAR HGB CONC 34.1 g/dL (31.6-35.5); MEAN CORPUSCULAR VOLUME 87.9 fL (81.4-99.0); MONOCYTES PERCENT AUTO 7.9 % (3.3-12.6); NEUTROPHILS ABSOLUTE AUTO 9.31 K/uL (1.0-7.6); NEUTROPHILS PERCENT AUTO 81.9 % (40.0-78.1); PLATELET COUNT,PLT 523 K/uL (130-375); RED BLOOD CELL COUNT 3.07 M/uL (3.77-5.24); WHITE BLOOD CELL COUNT,WBC 11.4 K/uL (3.2-11.0)
[2023-12-14] MEDS: HYDROmorphone 1 MG/ML Syringe IM ONE (18:02)
[2023-12-14] MEDS: droPERidol 5 MG/2 ML SDV IM ONE (18:02)
[2023-12-14 18:03] LABS: EOSINOPHILS ABSOLUTE AUTO 0.01 K/uL (0.00-0.40)
[2023-12-14 18:18] LABS: ANION GAP 12.6 mmol/L (5.0-14.0); BLOOD UREA NITROGEN,BUN 23 mg/dL (7-18); CALCIUM 9.4 mg/dL (8.5-10.1); CARBON DIOXIDE,CO2 25 mmol/L (21-32); CHLORIDE,CL 99 mmol/L (100-108); CREATININE 0.8 mg/dL (0.6-1.0); ESTIMATED GFR 86 mL/min (>60); GLUCOSE RANDOM 133 mg/dL (74-106); POTASSIUM,K 3.6 mmol/L (3.6-5.2); SODIUM,NA 133 mmol/L (140-148)
[2023-12-14] MEDS ORDERED: Pantoprazole 40 MG Tab.CR PO SCH (18:45)
[2023-12-14 19:08] VITALS: BP 105/52; PULSE 106
== END 2023-12-14 19:09 | disposition home or self-care (01) ==
LOC: JP.ED 16:23
DX: G89.29 Other chronic pain (principal); R10.9 Unspecified abdominal pain; Z88.2 Allergy status to sulfonamides; Z88.8 Allergy status to other drugs, medicaments and biological substances; Z91.048 Other nonmedicinal substance allergy status; Z79.899 Other long term (current) drug therapy; Z90.49 Acquired absence of other specified parts of digestive tract
CPT/HCPCS: 36415; 80048; 85025; 96372; 99284; J1170; J1790

== ENCOUNTER 2023-12-20 18:24 | Emergency (ER) | payer MEDICAID ==
[2023-12-20] MEDS: Sodium Chloride 0.9% 1,000 ML IV SCH (18:49)
[2023-12-20] MEDS: fentaNYL 50 MCG/ML SDV IVPUSH ONE ×3 (19:10→22:23)
[2023-12-20 19:12] LABS: BASOPHILS PERCENT AUTO 0.1 % (0.1-1.3); EOSINOPHILS PERCENT AUTO 0.1 % (0.0-5.4); HEMATOCRIT 17.3 % (34.3-46.0); IMMATURE GRAN ABSOLUTE AUTO 0.15 K/uL (0.00-0.23); IMMATURE GRAN PERCENT AUTO 1.2 % (0.0-0.7); LYMPHOCYTES ABSOLUTE AUTO 1.48 K/uL (0.8-3.3); LYMPHOCYTES PERCENT AUTO 12.3 % (11.4-47.7); MEAN CORPUSCULAR HEMOGLOBIN 29.4 pg (31.6-35.5); MEAN CORPUSCULAR HGB CONC 33.5 g/dL (31.6-35.5); MEAN CORPUSCULAR VOLUME 87.8 fL (81.4-99.0); MONOCYTES ABSOLUTE AUTO 0.56 K/uL (0.20-0.90); MONOCYTES PERCENT AUTO 4.7 % (3.3-12.6); NEUTROPHILS ABSOLUTE AUTO 9.81 K/uL (1.0-7.6); NEUTROPHILS PERCENT AUTO 81.6 % (40.0-78.1); PLATELET COUNT,PLT 752 K/uL (130-375); RED BLOOD CELL COUNT 1.97 M/uL (3.77-5.24)
[2023-12-20 19:16] LABS: BASOPHILS ABSOLUTE AUTO 0.01 K/uL (0.00-0.10); EOSINOPHILS ABSOLUTE AUTO 0.01 K/uL (0.00-0.40); HEMOGLOBIN 5.8 g/dL (11.2-15.5)
[2023-12-20 19:33] LABS: A/G RATIO 0.5 (1.2-2.2); ALANINE AMINOTRANSFERASE,ALT 10 U/L (12-78); ALKALINE PHOSPHATASE 115 U/L (46-116); ANION GAP 17.3 mmol/L (5.0-14.0); ASPARTATE AMNIOTRANSFERASE,AST 13 U/L (15-37); BILIRUBIN TOTAL 0.4 mg/dL (0.2-1.0); BLOOD UREA NITROGEN,BUN 16 mg/dL (7-18); C-REACTIVE PROTEIN 22.69 mg/dL (<0.50); CALCIUM 9.1 mg/dL (8.5-10.1); CARBON DIOXIDE,CO2 23 mmol/L (21-32); CHLORIDE,CL 95 mmol/L (100-108); CREATININE 0.8 mg/dL (0.6-1.0); ESTIMATED GFR 86 mL/min (>60); GLUCOSE RANDOM 169 mg/dL (74-106); POTASSIUM,K 3.3 mmol/L (3.6-5.2); PROTEIN TOTAL,TP 5.9 g/dL (6.4-8.2); SODIUM,NA 132 mmol/L (140-148)
[2023-12-20 19:38] LABS: LACTIC ACID 3.6 mmol/L (0.4-2.0)
[2023-12-20 19:43] LABS: MAGNESIUM 1.5 mg/dL (1.8-2.4); TSH ULTRASENSITIVE 1.506 uIU/mL (0.358-3.740)
[2023-12-20] MEDS: Sodium Chloride 0.9% 80 ML IV SCH (20:14)
[2023-12-20] MEDS: Iopamidol 612 MG/ML 100 ML Bottle IV SCH (20:14)
[2023-12-20] MEDS: Pantoprazole 40 MG Vial IVPUSH ONE (20:19)
[2023-12-20] MEDS ORDERED: Micafungin 100 MG in Sodium Chloride 0.9% 100 ML IV ONE (21:21)
[2023-12-20] MEDS: Piperacillin/Tazobactam 4.5 GM in Sodium Chloride 0.9% 100 ML IV ONE (21:25)
[2023-12-20] MEDS ORDERED: Vancomycin 1 GM SDV IV SCH (22:00)
[2023-12-20 22:39] VITALS: PULSE 117
[2023-12-20 22:54] VITALS: BP 102/66
[2023-12-20] MEDS: Magnesium Sulfate/Water Premix 2 GM in Premix Bag 1 BAG IV ONE (23:09)
== END 2023-12-20 23:15 ==
LOC: JP.ED 18:24
DX: A41.9 Sepsis, unspecified organism (principal); K63.1 Perforation of intestine (nontraumatic); Z98.84 Bariatric surgery status; J45.909 Unspecified asthma, uncomplicated; Z88.2 Allergy status to sulfonamides; Z88.8 Allergy status to other drugs, medicaments and biological substances; Z91.048 Other nonmedicinal substance allergy status; Z79.899 Other long term (current) drug therapy; Z90.49 Acquired absence of other specified parts of digestive tract
CPT/HCPCS: 36415; 36430; 74177; 80053; 82272; 83605; 83735; 84443; 85025; 86140; 86850; 86900; 86901; 86920; 86922; 87040; 96361; 96365; 96375; 96376; 99285; J2470; J2543; J3010; J3475; J3490; J7030; P9016; Q9967

== ENCOUNTER 2024-02-11 10:11 | Emergency (ER) | payer MEDICAID ==
[2024-02-11] MEDS ORDERED: Sodium Chloride 0.9% 10 ML Syringe FLUSH PRN (11:22)
[2024-02-11] MEDS: Sodium Chloride 0.9% 500 ML IV ONE ×3 (11:39→12:46)
[2024-02-11] MEDS: droPERidol 5 MG/2 ML SDV IVPUSH ONE (11:39)
[2024-02-11 11:42] LABS: BASOPHILS ABSOLUTE AUTO 0.05 K/uL (0.00-0.10); BASOPHILS PERCENT AUTO 0.4 % (0.1-1.3); EOSINOPHILS ABSOLUTE AUTO 0.04 K/uL (0.00-0.40); EOSINOPHILS PERCENT AUTO 0.3 % (0.0-5.4); HEMOGLOBIN 12.7 g/dL (11.2-15.5); IMMATURE GRAN ABSOLUTE AUTO 0.09 K/uL (0.00-0.23); IMMATURE GRAN PERCENT AUTO 0.8 % (0.0-0.7); LYMPHOCYTES ABSOLUTE AUTO 1.26 K/uL (0.8-3.3); LYMPHOCYTES PERCENT AUTO 10.8 % (11.4-47.7); MEAN CORPUSCULAR HEMOGLOBIN 29.7 pg (31.6-35.5); MEAN CORPUSCULAR HGB CONC 34.3 g/dL (31.6-35.5); MEAN CORPUSCULAR VOLUME 86.7 fL (81.4-99.0); MONOCYTES ABSOLUTE AUTO 0.91 K/uL (0.20-0.90); MONOCYTES PERCENT AUTO 7.8 % (3.3-12.6); NEUTROPHILS ABSOLUTE AUTO 9.28 K/uL (1.0-7.6); NEUTROPHILS PERCENT AUTO 79.9 % (40.0-78.1); PLATELET COUNT,PLT 521 K/uL (130-375); RED BLOOD CELL COUNT 4.27 M/uL (3.77-5.24); WHITE BLOOD CELL COUNT,WBC 11.6 K/uL (3.2-11.0)
[2024-02-11 12:01] LABS: CALCIUM 9.2 mg/dL (8.5-10.1); CREATININE 0.7 mg/dL (0.6-1.0); EST CRCL DRUG DOSING (CG) 49.53 mL/min; POTASSIUM,K 3.6 mmol/L (3.6-5.2)
[2024-02-11 12:04] LABS: ANION GAP 18.6 mmol/L (5.0-14.0)
[2024-02-11 12:09] LABS: LACTIC ACID 3.1 mmol/L (0.4-2.0)
[2024-02-11] MEDS: LORazepam 2 MG/ML SDV IVPUSH ONE (13:41)
[2024-02-11 13:54] VITALS: BP 128/84; PULSE 94
== END 2024-02-11 14:31 | disposition home or self-care (01) ==
LOC: JP.ED 10:11
DX: R11.2 Nausea with vomiting, unspecified (principal); E86.0 Dehydration; J45.909 Unspecified asthma, uncomplicated; Z91.018 Allergy to other foods; Z91.048 Other nonmedicinal substance allergy status; Z88.2 Allergy status to sulfonamides; Z88.8 Allergy status to other drugs, medicaments and biological substances; Z79.899 Other long term (current) drug therapy; Z90.49 Acquired absence of other specified parts of digestive tract
CPT/HCPCS: 36415; 80048; 83605; 84145; 85025; 96361; 96374; 96375; 99284; J1790; J2060; J7040; 99283

== ENCOUNTER 2024-07-07 08:52 | Day surgery (SDC) | payer MEDICAID ==
[2024-07-07] MEDS: Lactated Ringers 1,000 ML IV SCH (09:35)
[2024-07-07] MEDS ORDERED: Propofol 200 MG/20 ML SDV ONE (09:36)
[2024-07-07] MEDS ORDERED: fentaNYL 100 MCG/2 ML SDV ONE (09:36)
[2024-07-07 10:41] VITALS: BP 113/71; PULSE 79
== END 2024-07-07 10:54 | disposition home or self-care (01) ==
LOC: JP.SDS 08:52
PROVIDERS: ATTEND Surgery
DX: R10.13 Epigastric pain (principal); Z98.890 Other specified postprocedural states
CPT/HCPCS: 00731-QZ; J2704; J3010; J7120

== ENCOUNTER 2024-10-17 13:10 | Inpatient (IN) | payer MEDICAID ==
[2024-10-17 14:08] LABS: BASOPHILS PERCENT AUTO 0.1 % (0.1-1.3); EOSINOPHILS PERCENT AUTO 0.0 % (0.0-5.4); IMMATURE GRAN ABSOLUTE AUTO 0.14 K/uL (0.00-0.23); IMMATURE GRAN PERCENT AUTO 0.8 % (0.0-0.7); LYMPHOCYTES ABSOLUTE AUTO 1.28 K/uL (0.8-3.3); LYMPHOCYTES PERCENT AUTO 7.6 % (11.4-47.7); MONOCYTES ABSOLUTE AUTO 0.95 K/uL (0.20-0.90); MONOCYTES PERCENT AUTO 5.6 % (3.3-12.6); NEUTROPHILS ABSOLUTE AUTO 14.49 K/uL (1.0-7.6); NEUTROPHILS PERCENT AUTO 85.9 % (40.0-78.1); PLATELET COUNT,PLT 430 K/uL (130-375); RED BLOOD CELL COUNT 4.87 M/uL (3.77-5.24); WHITE BLOOD CELL COUNT,WBC 16.9 K/uL (3.2-11.0)
[2024-10-17] MEDS: Ondansetron 4 MG/2 ML SDV IVPUSH ONE (14:08)
[2024-10-17 14:11] LABS: BASOPHILS ABSOLUTE AUTO 0.02 K/uL (0.00-0.10); EOSINOPHILS ABSOLUTE AUTO 0.00 K/uL (0.00-0.40)
[2024-10-17 14:12] LABS: BASE EXCESS VENOUS 2.2 mm/L; BICARBONATE,VENOUS 20.5 mmol/L; O2 SATURATION VENOUS 97.4; OXYHEMOGLOBIN 94.7 %; PCO2 VENOUS 17.6 mm/Hg; PH,VENOUS 7.667 (7.350-7.450); PO2 VENOUS 73.1 mm/Hg; TOTAL HEMOGLOBIN 14.6 g/dL (12.0-16.0)
[2024-10-17 14:31] LABS: INR 1.0
[2024-10-17 14:44] LABS: A/G RATIO 1.0 (1.2-2.2); ALANINE AMINOTRANSFERASE,ALT 21 U/L (12-78); ASPARTATE AMNIOTRANSFERASE,AST 17 U/L (15-37); BILIRUBIN TOTAL 1.3 mg/dL (0.2-1.0); BLOOD UREA NITROGEN,BUN 20 mg/dL (7-18); CARBON DIOXIDE,CO2 23 mmol/L (21-32); CHLORIDE,CL 97 mmol/L (100-108); CREATININE 0.8 mg/dL (0.6-1.0); EST CRCL DRUG DOSING (CG) 47.16 mL/min; ESTIMATED GFR 86 mL/min (>60); GLUCOSE RANDOM 129 mg/dL (74-106); POTASSIUM,K 3.7 mmol/L (3.6-5.2); PROTEIN TOTAL,TP 7.7 g/dL (6.4-8.2); SODIUM,NA 134 mmol/L (140-148); TROPONIN I HIGH SENSITIVITY < 4.0 pg/mL (<=60.3)
[2024-10-17] MEDS: Prochlorperazine 10 MG/2 ML SDV IVPUSH ONE (14:46)
[2024-10-17 14:54] LABS: APPEARANCE,URINE CLOUDY (CLEAR); GLUCOSE,URINE NEGATIVE (NEGATIVE); OCCULT BLOOD,URINE TRACE-INTACT (NEGATIVE)
[2024-10-17 14:57] LABS: AMPHETAMINES SCREEN, URINE NEGATIVE (NEGATIVE); METHADONE SCREEN, URINE NEGATIVE (NEGATIVE); METHAMPHETAMINES SCREEN, URINE NEGATIVE (NEGATIVE); OXYCODONE SCREEN,URINE NEGATIVE (NEGATIVE); PROPOXYPHENE SCREEN,URINE NEGATIVE (NEGATIVE); THC SCREEN,URINE 50 NG/ML PRESUMPTIVE POSITIVE (NEGATIVE)
[2024-10-17 15:07] LABS: SQUAMOUS EPITHELIAL CELLS,UR MODERATE /HPF
[2024-10-17] MEDS: Iopamidol 612 MG/ML 100 ML Bottle IV SCH (16:11)
[2024-10-17] MEDS ORDERED: Sennosides/Docusate Sodium 50-8.6 MG Tab PO PRN (20:33)
[2024-10-17] MEDS ORDERED: Ondansetron 4 MG Tab.DIS PO PRN (20:33)
[2024-10-17] MEDS ORDERED: Ondansetron 4 MG/2 ML SDV IV PRN (20:33)
[2024-10-17] MEDS ORDERED: Albuterol 0.083% 2.5 MG/3 ML Neb Soln NEB PRN (20:33)
[2024-10-17] MEDS: LORazepam 2 MG/ML SDV IVPUSH PRN (20:59)
[2024-10-18 05:45] LABS: PLATELET COUNT,PLT 281.0 K/uL (130-375); RED BLOOD CELL COUNT 3.67 M/uL (3.77-5.24); WHITE BLOOD CELL COUNT,WBC 10.7 K/uL (3.2-11.0)
[2024-10-18 06:01] LABS: BLOOD UREA NITROGEN,BUN 17.0 mg/dL (7-18); CARBON DIOXIDE,CO2 24.0 mmol/L (21-32); CHLORIDE,CL 104.0 mmol/L (100-108); CREATININE 0.9 mg/dL (0.6-1.0); EST CRCL DRUG DOSING (CG) 45.24 mL/min; ESTIMATED GFR 75.0 mL/min (>60); GLUCOSE RANDOM 105.0 mg/dL (74-106); POTASSIUM,K 3.5 mmol/L (3.6-5.2); SODIUM,NA 138.0 mmol/L (140-148)
[2024-10-18] MEDS: Piperacillin/Tazobactam/Dext 4.5 GM in Premix Bag 1 BAG IV SCH (08:37)
[2024-10-19 05:52] LABS: PLATELET COUNT,PLT 274.0 K/uL (130-375); RED BLOOD CELL COUNT 3.87 M/uL (3.77-5.24); WHITE BLOOD CELL COUNT,WBC 7.4 K/uL (3.2-11.0)
[2024-10-19 06:07] LABS: BLOOD UREA NITROGEN,BUN 12.0 mg/dL (7-18); CARBON DIOXIDE,CO2 23.0 mmol/L (21-32); CHLORIDE,CL 103.0 mmol/L (100-108); CREATININE 0.9 mg/dL (0.6-1.0); EST CRCL DRUG DOSING (CG) 45.24 mL/min; ESTIMATED GFR 75.0 mL/min (>60); GLUCOSE RANDOM 81.0 mg/dL (74-106); POTASSIUM,K 3.5 mmol/L (3.6-5.2); SODIUM,NA 136.0 mmol/L (140-148)
[2024-10-19] MEDS: Potassium Chloride 10% 20 MEQ/15 ML Soln 15 ML UD Cup PO SCH (12:16)
[2024-10-19] MEDS: Potassium Chloride 20 MEQ Tab.ER PO SCH (13:11)
[2024-10-19] MEDS: Lactobacillus Rhamnosus GG (Probiotic) Cap PO SCH (22:03)
[2024-10-20] MEDS: Potassium Chloride 20 MEQ Tab.ER PO ONE (13:11)
[2024-10-20] MEDS: Potassium Chloride 20 MEQ Tab.ER PO SCH (13:11)
[2024-10-21 12:12] VITALS: BP 100/69; PULSE 92
== END 2024-10-21 13:40 | disposition home or self-care (01) | DRG 394 ==
LOC: JP.ED 13:10 → JP.MS 19:46
PROVIDERS: ADMIT Registered Nurse; ATTEND Hospitalist
PROC: 4A033R1 Measurement of Arterial Saturation, Peripheral, Percutaneous Approach (ICD-10-PCS; principal; 2024-10-17)
DX: K63.1 Perforation of intestine (nontraumatic) (principal); N39.0 Urinary tract infection, site not specified; H54.7 Unspecified visual loss; J45.909 Unspecified asthma, uncomplicated; K59.09 Other constipation; K21.9 Gastro-esophageal reflux disease without esophagitis; K44.9 Diaphragmatic hernia without obstruction or gangrene; E87.6 Hypokalemia; K66.8 Other specified disorders of peritoneum; N20.0 Calculus of kidney; M19.90 Unspecified osteoarthritis, unspecified site; M54.9 Dorsalgia, unspecified; G89.29 Other chronic pain; M54.2 Cervicalgia; E86.0 Dehydration; G43.909 Migraine, unspecified, not intractable, without status migrainosus; F41.9 Anxiety disorder, unspecified; F32.A Depression, unspecified; F43.12 Post-traumatic stress disorder, chronic; E55.9 Vitamin D deficiency, unspecified; D64.9 Anemia, unspecified; E61.1 Iron deficiency; Z90.49 Acquired absence of other specified parts of digestive tract; Z98.890 Other specified postprocedural states; Z98.51 Tubal ligation status; Z79.82 Long term (current) use of aspirin; Z88.8 Allergy status to other drugs, medicaments and biological substances; Z88.2 Allergy status to sulfonamides
CPT/HCPCS: 36415; 71045; 71045-26; 74177; 74177-26; 80048; 80053; 80305-QW; 81001; 82803; 83605; 83735; 84132; 84484; 85025; 85027; 85379; 85610; 86140; 87040; 87086; 93005; 93010; 94640; 96361; 96374; 96375; 99285; 99285-25; A9270-GY; J0780; J2060; J2270; J2405; J2470; J2543; J3480; J7030; Q9967

== ENCOUNTER 2024-11-07 09:53 | Emergency (ER) | payer MEDICAID ==
[2024-11-07 10:42] LABS: BASE EXCESS VENOUS 0.1 mm/L; BICARBONATE,VENOUS 19.8 mmol/L; O2 SATURATION VENOUS 67.2; OXYHEMOGLOBIN 63.8 %; PCO2 VENOUS 21.2 mm/Hg; PH,VENOUS 7.577 (7.350-7.450); TOTAL HEMOGLOBIN 15.0 g/dL (12.0-16.0)
[2024-11-07] MEDS: Acetaminophen 650 MG in Premix Bag 1 BAG IV ONE (10:46)
[2024-11-07 10:50] LABS: PO2 VENOUS 31.4 mm/Hg
[2024-11-07 10:50] LABS: BASOPHILS PERCENT AUTO 0.2 % (0.1-1.3); EOSINOPHILS ABSOLUTE AUTO 0.07 K/uL (0.00-0.40); EOSINOPHILS PERCENT AUTO 0.8 % (0.0-5.4); IMMATURE GRAN ABSOLUTE AUTO 0.03 K/uL (0.00-0.23); IMMATURE GRAN PERCENT AUTO 0.4 % (0.0-0.7); LYMPHOCYTES ABSOLUTE AUTO 1.65 K/uL (0.8-3.3); LYMPHOCYTES PERCENT AUTO 19.5 % (11.4-47.7); MONOCYTES ABSOLUTE AUTO 0.55 K/uL (0.20-0.90); MONOCYTES PERCENT AUTO 6.5 % (3.3-12.6); NEUTROPHILS ABSOLUTE AUTO 6.12 K/uL (1.0-7.6); NEUTROPHILS PERCENT AUTO 72.6 % (40.0-78.1); PLATELET COUNT,PLT 337 K/uL (130-375); RED BLOOD CELL COUNT 4.91 M/uL (3.77-5.24); WHITE BLOOD CELL COUNT,WBC 8.4 K/uL (3.2-11.0)
[2024-11-07 10:52] LABS: BASOPHILS ABSOLUTE AUTO 0.02 K/uL (0.00-0.10)
[2024-11-07] MEDS: Ondansetron 4 MG/2 ML SDV IVPUSH ONE (10:52)
[2024-11-07 11:22] LABS: A/G RATIO 1.1 (1.2-2.2); ALANINE AMINOTRANSFERASE,ALT 20 U/L (12-78); ASPARTATE AMNIOTRANSFERASE,AST 19 U/L (15-37); BILIRUBIN TOTAL 2.1 mg/dL (0.2-1.0); BLOOD UREA NITROGEN,BUN 14 mg/dL (7-18); CARBON DIOXIDE,CO2 24 mmol/L (21-32); CHLORIDE,CL 98 mmol/L (100-108); CREATININE 0.9 mg/dL (0.6-1.0); EST CRCL DRUG DOSING (CG) 39.74 mL/min; ESTIMATED GFR 75 mL/min (>60); GLUCOSE RANDOM 132 mg/dL (74-106); POTASSIUM,K 3.3 mmol/L (3.6-5.2); PROTEIN TOTAL,TP 7.8 g/dL (6.4-8.2); SODIUM,NA 138 mmol/L (140-148)
[2024-11-07 11:24] LABS: TROPONIN I HIGH SENSITIVITY < 4.0 pg/mL (<=60.3)
[2024-11-07] MEDS ORDERED: Albumin Human 25 GM in Premix Bag 1 BAG IV ONE (12:00)
[2024-11-07] MEDS: Iopamidol 612 MG/ML 100 ML Bottle IV PRN (12:56)
[2024-11-07] MEDS: Sodium Chloride 0.9% 10 ML Syringe FLUSH PRN (12:56)
[2024-11-07] MEDS: Albumin Human 25 GM in Premix Bag 1 BAG IV ONE (13:15)
[2024-11-07 13:35] VITALS: BP 154/97; PULSE 90
[2024-11-07] MEDS: Prochlorperazine 10 MG/2 ML SDV IVPUSH ONE (15:34)
[2024-11-07 15:51] LABS: APPEARANCE,URINE CLEAR (CLEAR); GLUCOSE,URINE NEGATIVE (NEGATIVE); OCCULT BLOOD,URINE SMALL (NEGATIVE)
[2024-11-07 16:12] LABS: SQUAMOUS EPITHELIAL CELLS,UR RARE /HPF; UROTHELIAL CELLS,URINE NOT SEEN /HPF
== END 2024-11-07 16:43 | disposition home or self-care (01) ==
LOC: JP.ED 09:53
DX: R11.2 Nausea with vomiting, unspecified (principal); R10.9 Unspecified abdominal pain; G89.29 Other chronic pain; R06.4 Hyperventilation; J45.909 Unspecified asthma, uncomplicated; K21.9 Gastro-esophageal reflux disease without esophagitis; Z98.84 Bariatric surgery status; Z90.49 Acquired absence of other specified parts of digestive tract; Z88.1 Allergy status to other antibiotic agents; Z88.2 Allergy status to sulfonamides; Z88.5 Allergy status to narcotic agent; Z88.8 Allergy status to other drugs, medicaments and biological substances; Z91.048 Other nonmedicinal substance allergy status; Z91.018 Allergy to other foods; Z79.899 Other long term (current) drug therapy
CPT/HCPCS: 36415; 71045; 74177; 80053; 80143; 81001; 82803; 83605; 83690; 83735; 84484; 85025; 85379; 86140; 87086; 87426; 93005; 93010; 96361; 96365; 96366; 96367; 96375; 99284; 99285; J0131; J0780; J2405; J3411; J7030; P9047; Q9967

== ENCOUNTER 2024-12-06 16:18 | Emergency (ER) | payer MEDICAID ==
[2024-12-06 17:05] LABS: BASE EXCESS VENOUS 0.7 mm/L; BASOPHILS PERCENT AUTO 0.1 % (0.1-1.3); BICARBONATE,VENOUS 19.4 mmol/L; EOSINOPHILS PERCENT AUTO 0.0 % (0.0-5.4); IMMATURE GRAN ABSOLUTE AUTO 0.04 K/uL (0.00-0.23); IMMATURE GRAN PERCENT AUTO 0.4 % (0.0-0.7); LYMPHOCYTES ABSOLUTE AUTO 0.51 K/uL (0.8-3.3); LYMPHOCYTES PERCENT AUTO 4.6 % (11.4-47.7); MONOCYTES ABSOLUTE AUTO 0.29 K/uL (0.20-0.90); MONOCYTES PERCENT AUTO 2.6 % (3.3-12.6); NEUTROPHILS ABSOLUTE AUTO 10.22 K/uL (1.0-7.6); NEUTROPHILS PERCENT AUTO 92.3 % (40.0-78.1); O2 SATURATION VENOUS 84.8; OXYHEMOGLOBIN 81.7 %; PCO2 VENOUS 17.6 mm/Hg; PH,VENOUS 7.645 (7.350-7.450); PLATELET COUNT,PLT 490 K/uL (130-375); PO2 VENOUS 43.8 mm/Hg; RED BLOOD CELL COUNT 4.41 M/uL (3.77-5.24); TOTAL HEMOGLOBIN 13.9 g/dL (12.0-16.0); WHITE BLOOD CELL COUNT,WBC 11.1 K/uL (3.2-11.0)
[2024-12-06 17:06] LABS: BASOPHILS ABSOLUTE AUTO 0.01 K/uL (0.00-0.10); EOSINOPHILS ABSOLUTE AUTO 0.00 K/uL (0.00-0.40)
[2024-12-06] MEDS: Ketorolac 30 MG/ML SDV IVPUSH ONE (17:06)
[2024-12-06] MEDS: Prochlorperazine 10 MG/2 ML SDV IVPUSH ONE (17:06)
[2024-12-06 17:29] LABS: A/G RATIO 1.0 (1.2-2.2); ALANINE AMINOTRANSFERASE,ALT 18 U/L (12-78); ASPARTATE AMNIOTRANSFERASE,AST 19 U/L (15-37); BILIRUBIN TOTAL 1.4 mg/dL (0.2-1.0); BLOOD UREA NITROGEN,BUN 17 mg/dL (7-18); CARBON DIOXIDE,CO2 20 mmol/L (21-32); CHLORIDE,CL 98 mmol/L (100-108); CREATININE 0.8 mg/dL (0.6-1.0); EST CRCL DRUG DOSING (CG) 41.45 mL/min; ESTIMATED GFR 86 mL/min (>60); GLUCOSE RANDOM 176 mg/dL (74-106); POTASSIUM,K 3.1 mmol/L (3.6-5.2); PROTEIN TOTAL,TP 7.9 g/dL (6.4-8.2); SODIUM,NA 133 mmol/L (140-148)
[2024-12-06] MEDS: Iopamidol 612 MG/ML 100 ML Bottle IV SCH (18:38)
[2024-12-06 20:09] VITALS: BP 126/82; PULSE 103
== END 2024-12-06 20:50 | disposition home or self-care (01) ==
LOC: JP.ED 16:18
DX: R10.9 Unspecified abdominal pain (principal); E86.0 Dehydration; Z91.048 Other nonmedicinal substance allergy status; Z88.8 Allergy status to other drugs, medicaments and biological substances; Z88.2 Allergy status to sulfonamides; Z79.899 Other long term (current) drug therapy; Z90.49 Acquired absence of other specified parts of digestive tract
CPT/HCPCS: 36415; 74177; 80053; 82803; 83605; 83690; 83735; 85025; 86140; 94640; 96361; 96374; 96375; 99284; 99285; J0780; J1885; J7030; J7620; Q9967; A9270-GY